=== PATIENT | female | born 1960 | race Caucasian/White ===

== ENCOUNTER 2020-07-04 08:40 | Outpatient (CLI) | payer BC, SELFPAY ==
--- NOTE | ~2020-07-04 | MM_ITS ---
EXAMINATION: MM screening [facility] BI w jayshree HISTORY: Screening mammogram TECHNIQUE: Craniocaudal and mediolateral oblique 3-D tomosynthesis images were obtained and synthetic 2-D images were generated. CAD analysis was submitted and interpreted. COMPARISON: 03/21/2019, 03/01/2018, 02/18/2017 BREAST PARENCHYMAL COMPOSITION: The breasts are almost entirely fatty. FINDINGS: Stable focal asymmetry is again noted in the upper outer quadrant of the right breast. Ther e is no evidence of suspicious mass, calcification, or architectural distortion to suggest malignancy in either breast. There has been no suspicious interval change. IMPRESSION: 1. No mammographic evidence of malignancy. 2. Recommend routine screening mammography in one year. BI-RADS Category 2: Benign finding(s). Reviewed, dictated and finalized at location A.
== END 2020-07-04 08:41 | disposition home or self-care (01) ==
PROVIDERS: PCP Family Medicine; Visit Provider Nurse Practitioner
DX: Z12.31 Encounter for screening mammogram for malignant neoplasm of breast (principal)
CPT/HCPCS: 77063; 77067

== ENCOUNTER 2020-10-22 15:33 | Emergency (ER) | payer BC, SELFPAY ==
[2020-10-22] VITALS (8 sets, daily range): BP systolic 104–134; BP diastolic 66–85; PULSE 80–87; RESP 16–30; TEMP 37.2; O2SAT 90–94
--- NOTE | ~2020-10-22 | XR_ITS ---
EXAMINATION: XR chest 1V portable EXAM DATE: 10/22/2020 17:07 INDICATION: Shortness of breath, weakness, headache. History hypertension. TECHNIQUE: Portable AP frontal chest x-ray was obtained. There is no prior study for comparison. FINDINGS: Moderate amount of bilateral ill-defined acute airspace disease. Recommend considering/excl uding COVID-19 given community prevalence. No pneumothorax or pleural effusion. Cardiomediastinal charlie houette is normal. There are mild bony degenerative changes. IMPRESSION: Moderate amount of bilateral ill-defined acute airspace disease, clinical correlation in dicated. Recommend considering COVID pneumonia. Reviewed, dictated and finalized at location A. RINTENDENT STORAGE AREA IMPRESSION: Moderate amount of bilateral ill-defined acute airspace disease, c linical correlation indicated. Recommend considering COVID pneumonia.
--- NOTE | ~2020-10-22 | CT_ITS ---
EXAMINATION: CTA chest PE protocol EXAM DATE: 10/22/2020 18:23 INDICATION: Shortness of breath. Fever. COVID 19 positive. TECHNIQUE: Spiral CTA of the chest (pulmonary arteries) was performed with 100 cc Omnipaque 350 intr avenous contrast injection. Images were acquired during the pulmonary arterial phase. Coronal maxi mum intensity projection 3D-reconstructions were created by the technologist on dedicated workstation . Axial, coronal and sagittal reformatted images were reviewed. The dose-length product (DLP) for t his examination was 901.51 mGy-cm. The exposure was tailored according to patient size (auto mA exp osure control), and iterative reconstruction (ASIR) was used as additional dose reduction technique. Correlation is made to chest x-ray earlier same day. FINDINGS: Pulmonary arteries are well opacified and without intraluminal filling defects. No thora cic aortic dissection. Bilateral patchy peripheral predominant groundglass opacities Appearance is t ypical of early stage COVID 19 pneumonia. Less likely acute possibilities include influenza, pulmona ry edema or hemorrhage. Some chronic processes that can have this appearance include cryptogenic orga nizing pneumonia, desquamative interstitial pneumonia, nonspecific interstitial pneumonia, drug toxic ity, connective tissue disease. Please clinically correlate and test as appropriate. There is an anterior mediastinal mass measuring 4.6 x 3.0 cm. Differential diagnosis includes thymoma , thymic carcinoma, lymphadenopathy. Recommend histologic correlation. There are no pleural or perica rdial effusions. Tracheobronchial tree is patent. There is no pneumothorax. Heart is normal in size. There is mild coronary arterial calcification, arterial sclerosis. Surgical changes along the greater curvature of the stomach, with small gastroesophageal hiatal hernia. Patient has diffuse id iopathic skeletal hyperostosis (DISH). There are no osteoblastic or osteolytic lesions identified. IMPRESSION: 1. Moderate patchy bilateral airspace disease suspicious for COVID-19 pneumonia. 2. Anterior mediastinal mass; nonemergent cardiothoracic consult is recommended for histologic corre lation. 3. Small gastroesophageal hiatal hernia. Reviewed, dictated and finalized at location A. LE INSTALLER IMPRESSION: 1. Moderate patchy bilateral airspace disease suspicious for COVID-19 pneumoni a. 2. Anterior mediastinal mass; nonemergent cardiothoracic consult is recommende d for histologic correlation. 3. Small gastroesophageal hiatal hernia.
--- NOTE | 2020-10-22 16:34 | ECG_ITS ---
Measurements Intervals [place] Rate: 84 P: 26 AR: 133 QRS: 4 QRSD: 95 T: 2 QT: 363 QTc: 429 Interpretive Statements SINUS RHYTHM BORDERLINE R WAVE PROGRESSION, ANTERIOR LEADS BORDERLINE T WAVE ABNORMALITY- ANTEROLAT/INF LEADS BORDERLINE ECG Electronically Signed On 10-22-2020 17:44:07 STONE SPREADER OPERATOR by Jb Fairchild D.O.
--- NOTE | 2020-10-22 16:36 | ED.GENADULT ---
HPI - General Adult General Chief complaint: Shortness of Breath/Dyspnea Stated complaint: covid positive/diff breathing Time Seen by Provider: 10/22/20 16:23 Source: patient and old records reviewed Mode of arrival: ambulatory Limitations: no limitations History of Present Illness HPI narrative: Patient is a 60-year-old female who presents Covid positive with continued symptoms with worsening shortness of breath with little activity or exertion patient notes nonproductive cough congestion headache loss of sense of smell. Denies chest pain vomiting diarrhea. Patient presents per private vehicle noting that she has been taking Tylenol is the only medication for her symptoms. On arrival patient does not appear distressed or uncomfortable. Patient is followed by Dr. Lyle. Related Data Allergies Allergy/AdvReac Type Severity Reaction Status Date / Time No Known Allergies Allergy Mild Verified 10/22/20 16:41 Review of Systems Review of Systems: All systems reviewed & are unremarkable except as noted in HPI and below PMFSH Family History Family History Father Hypertension Carcinoma of colon Mother Hypertension Social History Social History Smoking status: Smoker, status unknown Alcohol intake: current Exam Narrative: Exam Narrative: GENERAL: Well-appearing, obese, and in no acute distress. HEAD: Normocephalic, atraumatic. EYES: PERRLA and EOMI. ENT: Nares clear, no rhinorrhea or epistaxis. Mucous membranes moist. NECK: Supple. No adenopathy or masses. No carotid bruits or JVD CHEST: Clear to auscultation. No respiratory distress. Slight crackles in the lung ramirez no wheezing HEART: Regular rate and rhythm. No murmur heard. EXTREMITIES: Normal range of motion. No edema. SKIN: Warm, dry, no rash. NEURO: No focal deficits. Alert and oriented x3. Cranial nerves II through XII grossly intact PSYCH: Normal mood and affect. Course Course Emergency Course: Patient in the room in no distress aware of case findings treatment plan diagnosis will be discharged home will be sent home with inhaler patient was given steroids in the emergency department patient during her stay in the emergency department has had a respiratory rate in the 20s with oxygen saturations from 91 to 94%. Patient will be sent home with supportive medications to include antibiotic patient aware of discussion with primary care and will follow with them by phone tomorrow for reevaluation. Patient will be advised to purchase a home oximeter to monitor her oxygenation. Patient afebrile nontoxic-appearing and without emesis Consultations Consultation #1: Discussed case with primary care who will follow patient on an outpatient basis and is aware of the case findings and presentation Date: 10/22/20 Time: 19:30 Vital Signs Vital signs: Vital Signs Temperature 99.0 F 10/22/20 16:35 Pulse Rate 85 10/22/20 16:35 Respiratory Rate 30 H 10/22/20 16:35 Blood Pressure 125/74 10/22/20 16:35 Pulse Oximetry 90 10/22/20 16:35 Temperature 99.0 F 10/22/20 16:35 Pulse Rate 87 10/22/20 19:15 Respiratory Rate 18 10/22/20 19:15 Blood Pressure 122/76 10/22/20 19:15 Pulse Oximetry 92 10/22/20 19:15 Medical Decision Making [facility] Narrative Medical decision making narrative: Patient with COVID-19 pneumonia nontoxic-appearing will be discharged home with strict instructions on reasons to return advised to follow her oximetry patient advised to rest hydrate and to follow with primary care for further evaluation and given reasons to return and agrees to do so if symptoms worsen. Patient is able to talk without becoming dyspneic in the room respiratory rate is more in the teens with oxygenation of 94% no respiratory distress Vital Signs Vital Signs: Vital Signs Temperature 99.0 F 10/22/20 16:35 Pulse Rate 85 10/22/20
[2020-10-22 17:07] LABS: Basophils Absolute Auto 0.1 K/mm3 (0.0-0.1); Basophils Percent Auto 0.4 % (0.2-1.2); Eosinophils Percent Auto 0.1 % (0-4.4); Hematocrit 42.1 % (37.0-47.0); Immature Granulocyte Absolute 0.06 K/mm3 (0.00-0.031); Immature Granulocyte Percent A 0.5 % (0-0.5); Lymphocytes Absolute Auto 0.76 K/mm3 (0.9-3.2); Lymphocytes Percent Auto 6.5 % (18.3-44.2); Mean Corpuscular HGB Conc 33.3 g/dl (32-36); Mean Corpuscular Hemoglobin 28.6 pg (26-34); Mean Corpuscular Volume 86.1 fl (80-100); Mean Platelet Volume 9.8 fl (7.4-10.4); Monocytes Absolute Auto 0.7 K/mm3 (0.1-0.6); Monocytes Percent Auto 6.2 % (2.6-8.5); Neutrophils Absolute Auto 10.2 K/mm3 (1.3-6.7); Neutrophils Percent Auto 86.3 % (45.5-73.1); Platelet Count Result 271 k/mm3 (150-375); Red Blood Count 4.89 M/mm3 (4.2-5.4); White Blood Count 11.8 K/mm3 (4.5-10.0)
[2020-10-22 17:16] LABS: Prothrombin Time 13.9 Seconds (11.1-14.7)
[2020-10-22 17:17] LABS: Lactic Acid Reflex 1.2 mmol/L (0.7-2.1); Partial Thromboplastin Time 33.7 SECONDS (22.3-36.8)
[2020-10-22 17:19] LABS: D Dimer 0.81 ug/mL (<0.48)
[2020-10-22 17:22] LABS: Alanine Aminotransferase 19 U/L (4-35); Albumin Level 3.8 g/dL (3.5-5.1); Alkaline Phosphatase 105 U/L (38-126); Anion Gap 5 mmol/L (8-16); Aspartate Amino Transferase 36 U/L (14-36); Bilirubin,Total 0.7 mg/dL (0.2-1.3); Blood Urea Nitrogen 22 mg/dL (7-17); Calcium 9.4 mg/dL (8.4-10.2); Carbon Dioxide 31 mmol/L (22-30); Chloride 102 mmol/L (98-107); Estimated CRCL calculation 89 ml/min; Estimated Glomerular Filt Rate > 60; Glucose 129 mg/dL (65-105); Potassium 3.5 mmol/L (3.4-5.0); Sodium 138 mmol/L (137-145)
[2020-10-22 17:29] LABS: Troponin I < 0.012 ng/mL (0.000-0.034)
[2020-10-22] MEDS: DEXAMETHASONE SOD PHOS INJ 4 MG/ML VIAL 6 MG IV PUSH (19:08)
== END 2020-10-22 20:11 | disposition home or self-care (01) ==
PROVIDERS: Emergency Medicine Emergency Medical Services; Emergency Provider Emergency Medicine; PCP Family Medicine
DX: U07.1 COVID-19 (principal); J12.89 Other viral pneumonia
CPT/HCPCS: 36415; 71045; 71275; 80053; 83605; 84484; 85025; 85380; 85610; 85730; 86140; 87040; 93005; 96374; 99284; J1100; Q9967

== ENCOUNTER 2020-10-23 09:41 | Inpatient (IN) | payer BC, SELFPAY ==
[2020-10-23] VITALS (12 sets, daily range): BP systolic 95–127; BP diastolic 60–76; PULSE 74–90; RESP 20–40; TEMP 36.1–37.1; O2SAT 90–100; BMI 40.8
--- NOTE | ~2020-10-23 | XR_ITS ---
EXAMINATION: XR chest 1V portable INDICATION: COVID 19 pneumonia, increasing oxygen requirements TECHNIQUE: Portable AP chest at 1359 hours COMPARISON: 10/23/2020 FINDINGS: Patchy opacities have developed throughout the right lung and in the left mid and lower filiberto g zones. No pleural effusion or pneumothorax is identified. The cardiomediastinal silhouette is pj l. IMPRESSION: 1. Patchy bilateral airspace opacities, consistent with COVID 19 pneumonia. Reviewed, dictated and finalized at location A. IZE MACHINE HELPER
--- NOTE | ~2020-10-23 | XR_ITS ---
XR chest PICC line 11/01/2020 19:40 Indication: PICC line placement Procedure: AP portable chest Comparison: Comparison to multiple prior studies sequentially, with oldest reviewed study dated . Findings: Cardiomegaly with diffuse bilateral airspace disease. Interval placement of right subclavia n PICC line, tip near the cavoatrial junction. No pneumothorax. No significant effusion. Impression: 1: Persistent diffuse bilateral airspace disease which may represent pneumonia, edema or ARDS. Reviewed, dictated and finalized at location A. HOLE MACHINE OPERATOR Impression: 1: Persistent diffuse bilateral airspace disease which may represent pneumonia, edema or ARDS.
--- NOTE | ~2020-10-23 | XR_ITS ---
EXAMINATION: XR chest 1V portable EXAM DATE: 10/30/2020 06:19 INDICATION: Hypoxia, COVID-19 . TECHNIQUE: Portable AP frontal chest x-ray was obtained. Comparison is made to prior examination from 10/27/2020. FINDINGS: Extensive bilateral acute airspace disease, consistent with history provided of COVID pneum onia. No pneumothorax or pleural effusion. Cardiomediastinal silhouette is normal. Bones are unremark able. There is been interval progression in airspace disease compared to 10/27. IMPRESSION: Progressing extensive COVID pneumonia. Reviewed, dictated and finalized at location A. ESS CONTROL TECH
--- NOTE | ~2020-10-23 | XR_ITS ---
XR chest 1V portable 11/13/2020 06:33 Indication: Shortness of breath Procedure: AP portable chest Comparison: Comparison to multiple prior studies sequentially, with oldest reviewed study dated 10/08. Findings: Heart size normal. Persistent extensive bilateral airspace disease without significant davenport ge. No effusion or pneumothorax. No acute osseous abnormality. PICC line tip at the cavoatrial juncti on. Impression: 1: Stable diffuse bilateral airspace disease which may represent pneumonia or edema. Reviewed, dictated and finalized at location A. TEACHER Impression: 1: Stable diffuse bilateral airspace disease which may represent pneumonia or e karoline.
--- NOTE | ~2020-10-23 | XR_ITS ---
EXAMINATION: XR chest 1V portable DATE: 11/03/2020 06:00 INDICATION: Pneumonia TECHNIQUE: frontal view of the chest was obtained. COMPARISON: Chest radiograph dated 11/01/2020 FINDINGS: Right upper extremity peripherally inserted central venous catheter (PICC) tip at the caudal superio r vena cava. Diffuse bilateral interstitial and patchy airspace opacities, left greater than right. N o pneumothorax or pleural effusion. Heart size is normal. Cholecystectomy clips in right upper quadra nt. Visualized bones and soft tissues are unremarkable. IMPRESSION: 1. No significant interval change in diffuse bilateral lung disease consistent with pneumonia and/or pulmonary edema. Reviewed, dictated and finalized at location A. CTOR BUSINESS DEVELOPMENT
--- NOTE | ~2020-10-23 | XR_ITS ---
XR chest 1V portable DATE: 10/23/2020 10:19 INDICATION: Shortness of breath TECHNIQUE: Portable AP chest on 10/23/2020 at 1013 hours COMPARISON: 10/22/2020 CT pulmonary scan 10/22/2020 portable AP chest FINDINGS: Normal heart size. No pleural effusion. There are mild patchy infiltrates involving primarily the mid and lower lung zones. No pneumothorax. Diffuse idiopathic skeletal hyperostosis of the thoracic spine. Osteopenia. IMPRESSION: Patchy bilateral mild pulmonary infiltrates Reviewed, dictated and finalized at location B. CIATE DIRECTOR OF NURSING
--- NOTE | ~2020-10-23 | US_ITS ---
US soft tissue abdomen 11/13/2020 14:55 Indication: Large hematomas due to Lovenox injections. Decreased hematocrit. Procedure: Realtime limited ultrasound of the area of abdominal bruising Comparison: No prior studies for comparison. Findings: There are multiple cystic and hypoechoic masses of the anterior abdominal wall in the area of palpable concern. There is a cystic mass measuring 1.8 cm. There is a larger hypoechoic mass with irregular margins measuring 5 x 3.7 x 4.8 cm no internal vascularity is identified. Impression: 1: Multiple cystic and hypoechoic masses in the areas of bruising and Lovenox injections, most likely hematoma/seromas, although infection is not excluded. Correlate clinically. Reviewed, dictated and finalized at location A. R OFF Impression: 1: Multiple cystic and hypoechoic masses in the areas of bruising and Lovenox i njections, most likely hematoma/seromas, although infection is not excluded. Co rrelate clinically.
--- NOTE | ~2020-10-23 | XR_ITS ---
EXAMINATION: XR chest 1V portable EXAM DATE: 11/01/2020 10:51 INDICATION: Shortness of breath. Pneumonia follow-up. TECHNIQUE: Portable AP frontal chest x-ray was obtained. Comparison is made to prior examination from 10/30/2020, 10/27. FINDINGS: Extensive bilateral acute airspace disease, consistent with history provided of COVID pneum onia. No pneumothorax or pleural effusion. Cardiomediastinal silhouette is normal. Bones are unremark able. There is been interval progression in airspace disease compared to 10/27, but appearance is not signi ficantly changed compared to yesterday. IMPRESSION: Extensive COVID pneumonia, unchanged compared to yesterday. No pneumothorax. Reviewed, dictated and finalized at location A. TENANCE OF WAY SUPERINTENDENT IMPRESSION: Extensive COVID pneumonia, unchanged compared to yesterday. No pne umothorax.
--- NOTE | 2020-10-23 09:54 | PC.NURSE ---
Pt placed on 2 L NC O2 due to 90% on room air. Pt O2 sat 95% on 2L NC.
--- NOTE | 2020-10-23 09:58 | ECG_ITS ---
Measurements Intervals [place] Rate: 81 P: 29 [place]: 134 QRS: 7 QRSD: 88 T: 7 QT: 367 QTc: 428 Interpretive Statements SINUS RHYTHM BORDERLINE ST-T WAVE ABNORMALITY- INFERIOR LEADS BASELINE ARTIFACT- I, II BORDERLINE ECG Electronically Signed On 10-23-2020 10:15:46 MOLD BUNCH TRIMMER by Jb Fairchild D.O.
[2020-10-23 10:20] LABS: Basophils Percent Auto 0.2 % (0.2-1.2); Hematocrit 43.8 % (37.0-47.0); Hemoglobin 14.7 g/dL (12.0-15.0); Immature Granulocyte Absolute 0.06 K/mm3 (0.00-0.031); Immature Granulocyte Percent A 0.4 % (0-0.5); Lymphocytes Percent Auto 5.1 % (18.3-44.2); Mean Corpuscular HGB Conc 33.6 g/dl (32-36); Mean Corpuscular Hemoglobin 29.1 pg (26-34); Mean Corpuscular Volume 86.6 fl (80-100); Mean Platelet Volume 9.6 fl (7.4-10.4); Monocytes Absolute Auto 0.6 K/mm3 (0.1-0.6); Monocytes Percent Auto 4.7 % (2.6-8.5); Neutrophils Absolute Auto 12.3 K/mm3 (1.3-6.7); Neutrophils Percent Auto 89.6 % (45.5-73.1); Platelet Count Result 329 k/mm3 (150-375); Red Blood Count 5.06 M/mm3 (4.2-5.4); White Blood Count 13.7 K/mm3 (4.5-10.0)
[2020-10-23 10:32] LABS: Alanine Aminotransferase 23 U/L (4-35); Alkaline Phosphatase 115 U/L (38-126); Anion Gap 10 mmol/L (8-16); Aspartate Amino Transferase 40 U/L (14-36); Bilirubin,Total 0.5 mg/dL (0.2-1.3); Blood Urea Nitrogen 23 mg/dL (7-17); Calcium 9.6 mg/dL (8.4-10.2); Carbon Dioxide 30 mmol/L (22-30); Chloride 101 mmol/L (98-107); D Dimer 0.96 ug/mL (<0.48); Estimated CRCL calculation 73 ml/min; Estimated Glomerular Filt Rate > 60; Glucose 140 mg/dL (65-105); Potassium 3.6 mmol/L (3.4-5.0); Sodium 141 mmol/L (137-145)
--- NOTE | 2020-10-23 10:45 | PC.NURSE ---
Per Carson PIERRE, pt placed on 3 L NC O2 due to increased RR.
--- NOTE | 2020-10-23 13:34 | ED.GENADULT ---
HPI - General Adult General Chief complaint: Shortness of Breath/Dyspnea Stated complaint: SOB, COVID + Time Seen by Provider: 10/23/20 09:58 Source: patient Mode of arrival: EMS Limitations: no limitations History of Present Illness HPI narrative: Patient presents 10 days positive for COVID-19 with chief complaint of worsening shortness of breath. Patient was seen in this emergency department last night and was given steroids and felt that her breathing improved so she was discharged home with prescriptions that she was unable to excelsior picker from the pharmacy. Patient states that she was having more trouble breathing today so she called EMS to bring her to the emergency department. EMS states the patient was satting in the 80s and to put on oxygen via nasal cannula and she was able to be brought into the 90s. Patient denies a history of COPD asthma or any other pulmonary issues. Patient denies using home oxygen prior to today. Patient denies fever, chills, nausea, vomiting, diarrhea. Patient states she has experienced some loss of taste and smell. Related Data Allergies Allergy/AdvReac Type Severity Reaction Status Date / Time No Known Allergies Allergy Mild Verified 10/23/20 14:42 Review of Systems Review of Systems: Narrative: CONSTITUTIONAL: Denies fever, chills, or sweats. EYES: Denies visual changes, redness, or discharge. ENT: Denies rhinorrhea, congestion, sore throat, or otalgia. CARDIOVASCULAR: Denies chest pain, palpitations, or edema. RESPIRATORY: Reports dyspnea. GASTROINTESTINAL: Denies abdominal pain, nausea, vomiting, or diarrhea. GENITOURINARY: Denies dysuria or hematuria. SKIN: Denies rash or itching. MUSCULOSKELETAL: Denies back pain, joint pain, or myalgia. NEUROLOGIC: Denies headache, numbness, dizziness, or weakness. PSYCHIATRIC: Denies anxiety or depression. 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 Typically she was smoke about a pack in a week. Socially drinks alcohol no marijuana or illicit drugs. Her is a durable power united [place] attorney for healthcare. The patient desires to be a full code. Smoking status: Never smoker Alcohol intake: current Drinks per week: 1 Substance use: never Substance use type: does not use Gender identity (if verbalized by the patient): Female Sexual Orientation (if Verbalized by the Patient): Straight or Heterosexual Spiritual care concerns: No Exam Narrative: Exam Narrative: GENERAL: Well-appearing, well-nourished, and in no acute distress. HEAD: Normocephalic, atraumatic. EYES: PERRLA and EOMI. NECK: Supple. No adenopathy or masses. CHEST: Clear to auscultation. Patient breathing in quick shallow respirations. No wheezes rales or rhonchi HEART: Regular rate and rhythm. No murmur heard. EXTREMITIES: Normal range of motion. No edema. SKIN: Warm, dry, no rash. NEURO: No focal deficits. Alert and oriented x3. PSYCH: Normal mood and affect. Course Vital Signs Vital signs: Vital Signs Temperature 97.0 F L 10/23/20 09:42 Pulse Rate 84 10/23/20 09:42 Respiratory Rate 35 H 10/23/20 09:42 Blood Pressure 120/69 10/23/20 09:42 Pulse Oximetry 90 10/23/20 09:42 Temperature 97.0 F L 10/23/20 09:42 Pulse Rate 84 10/23/20 13:36 Respiratory Rate
--- NOTE | 2020-10-23 13:57 | PM.IMHP ---
H&P: HPI History of Present Illness Date/Time: 10/23/20 13:57 Chief Complaint: Shortness of breath and hypoxia Narrative: Natasha Hogan is a 60 year old female Who was diagnosed at [facility] approximately 10 days ago for COVID-19. The patient was doing well until last night. She stated that her pulse ox went down to about 84% last night. She was here in the emergency room yesterday and they did a CTa which was read as moderate patchy bilateral airspace disease suspicious for COVID-19 pneumonia. Anterior mediastinal mass non emergent cardiothoracic consult is recommended for histologic correlation. Small gastrointestinal hiatal hernia. The patient stated that she was prescribed steroids yesterday but was not able to get them from the pharmacy as the ready close when she got to the pharmacy. She was able to by pulse oximeter and was monitoring her oxygen level closely. Patient's pulse oximeter was noted to be in the 90 percentile and oxygen was applied at 3 L per nasal cannula. White count 13.7. D-dimer 0.[address] was negative for PE. patient is requiring 3 L of oxygen at this time. Patient was admitted to observation status on the date of service 10/23/2020. Review of Systems Review of Systems: All systems reviewed & are unremarkable except as noted in HPI and below Constitutional: Constitutional: Reports as per HPI and Reports no additional constitutional complaints Eyes: Eyes: Reports as per HPI and Reports no additional eye complaints ENT: Reports system reviewed and no additional complaints, except as documented and Reports Normal hearing present Cardiovascular: Cardiovascular: Reports no additional cardiovascular complaints Respiratory: Respiratory: Reports no additional respiratory complaints and Reports no additional respiratory complaints Gastrointestinal: Gastrointestinal: Reports as per HPI and Reports no additional gastrointestinal complaints Musculoskeletal: Musculoskeletal: Reports no additional musculoskeletal complaints Integumentary/Breasts: Skin/Breast: Reports system reviewed and no additional complaints, except as docu and Reports as per HPI Neurologic: Reports system reviewed and no additional complaints, except as documented, Reports as per HPI and Reports Normal hearing present Psychiatric: Psychiatric: Reports no additional psychiatric complaints and Reports as per HPI Endocrine: Endocrine: Reports no additional endocrine complaints Hematologic/Lymphatic: Hematologic/Lymphatic: Reports no additional hematologic/lymphatic complaints Allergic/Immunologic: Allergic/Immunologic: Reports no additional allergic/immunologic complaints [facility] Past Medical History Medical History (Updated 10/23/20 @ 14:12 by Lulu Rosales NP) Essential hypertension MARIA E (generalized anxiety disorder) Surgical History Surgical History (Updated 10/23/20 @ 14:11 by Lulu Rosales NP) H/O cardiac radiofrequency ablation H/O colonoscopy with polypectomy H/O: hysterectomy Hx of cholecystectomy Family History Family History Father Hypertension Carcinoma of colon Mother Hypertension Social History Social History (Updated 10/23/20 @ 14:16 by Lulu Rosales NP) Social History: the patient works for [employer] in the [place] department. 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 Typically she was smoke about a pack in a week. Socially drinks alcohol no marijuana or illicit drugs. Her is a durable power regulatory attorney for healthcare. The patient desires to be a full code. Smoking status: Smoker, status unknown Alcohol intake: current Gender identity (if verbalized by the patient): Female Meds Home Medications and Allergies Home Medications Medication Instructions Recorded Confirmed Type fluconazole 150 mg tablet 150 mg PO ONCE #2 tablet 07/25/20 Rx sertraline 50 mg tablet See Rx Instructions .ROUTE 10
--- NOTE | 2020-10-23 14:33 | ADMGEN ---
This patient, Natasha Hogan, was admitted to [facility] Surg Room 326-01. Patient/family oriented to hospital policies and general routines including ID bracelet, bed and alarms, visiting hours, pain management, procedures, bathroom and other care routines, personal items, smoking policy, room service/diet, and visiting hours. Information on how to activate the Rapid Response Team has been discussed. Patient/Family are encouraged to report perceived risks to care and to ask questions if they do not understand what they are told or what they should do.
[2020-10-23 14:48] LABS: Alanine Aminotransferase 22 U/L (4-35)
[2020-10-23] MEDS: ACETAMINOPHEN 325 MG TABLET 650 MG PO (15:17)
[2020-10-23] MEDS: REMDESIVIR 200 MG/NS 250 ML 200 MG/250 ML BAG 250 MG IVPB (15:18)
[2020-10-23] MEDS: DEXAMETHASONE SOD PHOS INJ 4 MG/ML VIAL 6 MG IV PUSH (15:19)
[2020-10-23] MEDS: ALBUTEROL SULFATE (*SP) INHALER 2 PUFF INHALATION ×2 (15:20→21:55)
--- NOTE | 2020-10-23 16:31 | PC.NURSE ---
Lulu Shane called to ask for diet order and code status.new orders recieved. Heart healthy diet and full code status.
[2020-10-23] MEDS: FAMOTIDINE 20 MG TABLET PO (17:35)
[2020-10-24] VITALS (7 sets, daily range): BP systolic 90–112; BP diastolic 55–64; PULSE 71–77; RESP 18–20; TEMP 36.1–36.9; O2SAT 90–95
[2020-10-24] MEDS: ALBUTEROL SULFATE (*SP) INHALER 2 PUFF INHALATION ×4 (02:16→21:08)
[2020-10-24 06:18] LABS: Basophils Percent Auto 0.2 % (0.2-1.2); Hematocrit 38.9 % (37.0-47.0); Immature Granulocyte Absolute 0.09 K/mm3 (0.00-0.031); Immature Granulocyte Percent A 0.7 % (0-0.5); Mean Corpuscular HGB Conc 33.4 g/dl (32-36); Mean Corpuscular Volume 86.6 fl (80-100); Mean Platelet Volume 9.9 fl (7.4-10.4); Monocytes Absolute Auto 0.9 K/mm3 (0.1-0.6); Monocytes Percent Auto 6.9 % (2.6-8.5); Neutrophils Absolute Auto 10.5 K/mm3 (1.3-6.7); Neutrophils Percent Auto 84.2 % (45.5-73.1); Platelet Count Result 348 k/mm3 (150-375); Red Blood Count 4.49 M/mm3 (4.2-5.4); Red Cell Distribution Width 12.2 % (11.5-14.5); White Blood Count 12.5 K/mm3 (4.5-10.0)
[2020-10-24 06:35] LABS: Alanine Aminotransferase 22 U/L (4-35); Albumin Level 3.4 g/dL (3.5-5.1); Alkaline Phosphatase 94 U/L (38-126); Anion Gap 3 mmol/L (8-16); Aspartate Amino Transferase 37 U/L (14-36); Bilirubin,Total 0.3 mg/dL (0.2-1.3); Blood Urea Nitrogen 33 mg/dL (7-17); Carbon Dioxide 33 mmol/L (22-30); Chloride 102 mmol/L (98-107); Estimated CRCL calculation 80 ml/min; Estimated Glomerular Filt Rate > 60; Glucose 124 mg/dL (65-105); Magnesium 2.2 mg/dL (1.6-2.3); Phosphorus 4.8 mg/dL (2.5-4.5); Potassium 3.9 mmol/L (3.4-5.0); Sodium 138 mmol/L (137-145)
[2020-10-24 07:17] LABS: Thyroid Stimulating Hormone Reflex 0.449 uIU/mL (0.465-4.68)
[2020-10-24] MEDS: DEXAMETHASONE SOD PHOS INJ 4 MG/ML VIAL 6 MG IV PUSH (08:51)
[2020-10-24] MEDS: SERTRALINE HCL 50 MG TABLET BY MOUTH (08:53)
[2020-10-24] MEDS: FAMOTIDINE 20 MG TABLET PO ×2 (08:53→17:08)
[2020-10-24 09:32] LABS: Free T4 Free Thyroxine Reflex 1.35 ng/dL (0.78-2.19)
[2020-10-24] MEDS: REMDESIVIR 100 MG/NS 250 ML 100 MG/250 ML BAG 250 MG IVPB (10:11)
[2020-10-24 10:36] LABS: Total Triiodothyronine (T3) 0.72 NG/ML (0.97-1.69)
--- NOTE | 2020-10-24 13:08 | PM.IMPN ---
Progress Note: A&P Assessment and Plan (1) COVID-19: Code(s): U07.1 - COVID-19 Status: Acute Assessment and Plan: She tested positive for COVID-19 10/16/20. She noticed shortness of breath worsening within the past week. She is currently hypoxic and requiring 3.5 liters per nasal cannula. She does feel better today Plan to continue dexamethasone (day 2, initiated 10/23/20) and remdesivir (day 2, initiated 10/23/20) Continue incentive spirometry Continue mucinex Continue albuterol via MDI Trend acute phase reactants Encourage prone positioning Continue supplemental oxygen as needed to maintain oxygen saturation >90% (2) MARIA E (generalized anxiety disorder): Code(s): F41.1 - Generalized anxiety disorder Status: Acute Assessment and Plan: Mood is stable. Continue sertraline (3) Essential hypertension: Code(s): I10 - Essential (primary) hypertension Status: Chronic Assessment and Plan: Blood pressures are a bit on the soft side. Telmisartan-HCTZ is on hold. Continue to monitor Subjective Date/time seen: 10/24/20 13:08 Mrs. Hogan is a 60 y.o. female with PMH significant for essential hypertension, MARIA E, and tobacco dependence who is seen in follow-up for acute hypoxic respiratory failure secondary to COVID-19 pneumonia. She is feeling better today. She endorses dyspnea on exertion but is comfortable at rest. She is not having any chest pain or pleuritic pain. She does not have significant cough. She is not having nausea, vomiting, or abdominal pain. Her bowels tend to be looser but she did have a regular bowel movement today. She has no voiding concerns. She denies subjective fever and chills. She denies calf pain and leg swelling. Review of Systems Review of Systems: All systems reviewed & are unremarkable except as noted in HPI and below Exam Narrative: Exam Narrative: General: Pleasant, well-developed, and obese 60 y.o. female lying semi-recumbent in bed in no acute distress. HEENMT: Normocephalic and atraumatic. Sclera anicteric. Conjunctivae without injection or exudate. PERRL. EOMI. Oral conjunctiva moist. Neck: Supple. Cardiac: Regular rate and rhythm. S1 and S2 normal. No murmur. Lungs: Respirations even and non-labored. She is speaking in full sentences without distress. Inspiratory and expiratory rales throughout bilateral lung ramirez, no wheezes. Abdomen: Bowel sounds normoactive. Abdomen is soft, non-distended, and non-tender. Extremities: No lower extremity edema or calf tenderness. Tawanda sign negative. Pedal pulses palpable 2+. Neurological: Alert. CN II-XII intact. Upper and lower extremity strength intact and symmetric 5/5. Speech is clear. Skin: Warm and dry. Psychiatric: Judgment and insight intact. Pleasant mood and appropriate affect. Objective Data Vital Signs Vital Signs: Vital Signs - 24 hr 10/23/20 13:36 10/23/20 13:50 10/23/20 15:34 Temperature 98.4 F Pulse Rate 84 81 Respiratory Rate 37 H 22 H Blood Pressure 115/72 127/63 Pulse Oximetry 97 99 95 10/23/20 16:00 10/23/20 20:00 10/24/20 00:00 Temperature 98.7 F 98.5 F 97.7 F Pulse Rate 90 80 71 Respiratory Rate 22 H 20 18 Blood Pressure 115/76 95/60 L 112/56 L Pulse Oximetry 100 94 93 10/24/20 04:00 10/24/20 08:00 10/24/20 08:55 Temperature 98.2 F 98.4 F Pulse Rate 77 76 Respiratory Rate 20 18 Blood Pressure 103/55 L 104/64 Pulse Oximetry 92 91 93 10/24/20 12:00 Temperature 97.1 F L Pulse Rate 73 Respiratory Rate 18 Blood Pressure 90/57 L Pulse Oximetry 95 Intake/Output Intake/Output: Intake & Output 10/21/20 10/22/20 10/23/20 10/24/20 23:59 23:59 23:59 23:59 Intake Total 790 590 Balance 790 590 Meds/Results Medications: Active Medications Generic Name Dose Route Start Last Admin Trade Name Freq PRN Reason Stop Dose Admin Acetaminophen 650 mg 10/23/20 13:27 Acetaminophen 325 Mg T
[2020-10-24] MEDS: ENOXAPARIN 40 MG/0.4 ML SYRINGE SUB-Q (21:07)
[2020-10-25] VITALS (7 sets, daily range): BP systolic 96–121; BP diastolic 42–73; PULSE 63–72; RESP 20; TEMP 36.6–36.8; O2SAT 90–94
[2020-10-25] MEDS: ALBUTEROL SULFATE (*SP) INHALER 2 PUFF INHALATION ×4 (02:00→20:07)
[2020-10-25 06:56] LABS: Basophils Percent Auto 0.1 % (0.2-1.2); Hematocrit 39.4 % (37.0-47.0); Hemoglobin 13.1 g/dL (12.0-15.0); Immature Granulocyte Percent A 0.8 % (0-0.5); Lymphocytes Absolute Auto 1.41 K/mm3 (0.9-3.2); Lymphocytes Percent Auto 11.4 % (18.3-44.2); Mean Corpuscular HGB Conc 33.2 g/dl (32-36); Mean Corpuscular Hemoglobin 28.9 pg (26-34); Mean Corpuscular Volume 86.8 fl (80-100); Mean Platelet Volume 9.8 fl (7.4-10.4); Monocytes Percent Auto 8.3 % (2.6-8.5); Neutrophils Absolute Auto 9.8 K/mm3 (1.3-6.7); Neutrophils Percent Auto 79.4 % (45.5-73.1); Platelet Count Result 383 k/mm3 (150-375); Red Blood Count 4.54 M/mm3 (4.2-5.4); Red Cell Distribution Width 12.2 % (11.5-14.5); White Blood Count 12.4 K/mm3 (4.5-10.0)
[2020-10-25 07:19] LABS: Alanine Aminotransferase 22 U/L (4-35); Albumin Level 3.3 g/dL (3.5-5.1); Alkaline Phosphatase 88 U/L (38-126); Anion Gap 5 mmol/L (8-16); Aspartate Amino Transferase 34 U/L (14-36); Bilirubin,Total 0.3 mg/dL (0.2-1.3); Blood Urea Nitrogen 33 mg/dL (7-17); CRP 6.6 mg/dL (<1.0); Calcium 9.1 mg/dL (8.4-10.2); Carbon Dioxide 33 mmol/L (22-30); Chloride 103 mmol/L (98-107); Creatine Kinase 20 U/L (30-135); Estimated CRCL calculation 91 ml/min; Estimated Glomerular Filt Rate > 60; Glucose 108 mg/dL (65-105); Lactate Dehydrogenase 595 U/L (313-618); Magnesium 2.2 mg/dL (1.6-2.3); Potassium 3.7 mmol/L (3.4-5.0); Sodium 141 mmol/L (137-145)
[2020-10-25] MEDS: LORATADINE 10 MG TABLET PO (08:54)
[2020-10-25] MEDS: SERTRALINE HCL 50 MG TABLET BY MOUTH (08:54)
[2020-10-25] MEDS: FAMOTIDINE 20 MG TABLET PO ×2 (08:54→17:14)
[2020-10-25] MEDS: DEXAMETHASONE SOD PHOS INJ 4 MG/ML VIAL 6 MG IV PUSH (08:54)
[2020-10-25] MEDS: ENOXAPARIN 40 MG/0.4 ML SYRINGE SUB-Q ×2 (08:57→20:06)
[2020-10-25] MEDS: REMDESIVIR 100 MG/NS 250 ML 100 MG/250 ML BAG 250 MG IVPB (10:55)
--- NOTE | 2020-10-25 11:49 | PM.IMPN ---
Progress Note: A&P Assessment and Plan (1) Acute respiratory failure with hypoxia: Code(s): J96.01 - Acute respiratory failure with hypoxia Status: Acute Assessment and Plan: Secondary to COVID-19 pneumonia. Chest CTA negative for PE. Continue supplemental oxygen as needed RT to assess and treat Continue treatment of COVID-19 as below Continue to monitor (2) COVID-19: Code(s): U07.1 - COVID-19 Status: Acute Assessment and Plan: She tested positive for COVID-19 10/16/20. She noticed shortness of breath worsening within the past week. She is currently hypoxic, oxygen requirements increased to 4 liters per nasal cannula. Plan to continue dexamethasone (day 01/14, initiated 10/23/20) and remdesivir (day 01/09, initiated 10/23/20) Continue incentive spirometry Continue mucinex Continue albuterol via MDI Trend acute phase reactants Encourage prone positioning Continue supplemental oxygen as needed to maintain oxygen saturation >90% (3) MARIA E (generalized anxiety disorder): Code(s): F41.1 - Generalized anxiety disorder Status: Acute Assessment and Plan: Mood is stable. Continue sertraline (4) Essential hypertension: Code(s): I10 - Essential (primary) hypertension Status: Chronic Assessment and Plan: Blood pressures are a bit on the soft side. Telmisartan-HCTZ is on hold. Continue to monitor (5) Mediastinal mass: Code(s): J98.59 - Other diseases of mediastinum, not elsewhere classified Status: Acute Assessment and Plan: Chest CTA shows anterior mediastinal mass measuring 4.6x3.0cm with differential to include thymoma, thymic carcinoma, and lymphadenopathy. Discussed with the patient and she will need referral to cardiothoracic surgery once she is discharged for histologic confirmation Subjective Date/time seen: 10/25/20 11:49 Mrs. Hogan is a 60 y.o. female with PMH significant for essential hypertension, MARIA E, and tobacco dependence who is seen in follow-up for acute hypoxic respiratory failure secondary to COVID-19 pneumonia. She feels a bit better today. She did ambulate in the room and still has dyspnea with exertion. She has occasional cough productive of clear sputum. She is not having any chest pain or pleuritic pain. Her appetite is good. She is having regular bowel movements. She has no voiding concerns. She has no calf pain or leg swelling. Review of Systems Review of Systems: All systems reviewed & are unremarkable except as noted in HPI and below Exam Narrative: Exam Narrative: General: Very pleasant, well-developed, well-nourished and obese 60 y.o. female lying in bed watching TV in no acute distress. HEENMT: Normocephalic and atraumatic. Sclera anicteric. Oral mucosa moist. Neck: Supple. Cardiac: Regular rate and rhythm. S1 and S2 normal. No murmur. Lungs: Effort normal without increased work of breathing. Lungs have inspiratory rales throughout all lung ramirez. No wheezes. Abdomen: Bowel sounds normoactive. Abdomen is soft, non-distended, and non-tender. No guarding or rebound. Extremities: No lower extremity edema or calf tenderness. Pedal pulses are palpable, 2+. Neurological: Alert. Exam non-focal. Speech is clear. Skin: Warm and dry. Psychiatric: Judgment and insight intact. Pleasant mood and appropriate affect. Objective Data Vital Signs Vital Signs: Vital Signs - 24 hr 10/24/20 12:00 10/24/20 16:00 10/24/20 20:00 Temperature 97.1 F L 97.0 F L 98.1 F Pulse Rate 73 74 72 Respiratory Rate 18 18 20 Blood Pressure 90/57 L 107/62 110/55 L Pulse Oximetry 95 90 92 10/25/20 01:02 10/25/20 04:00 10/25/20 08:00 Temperature 98.2 F 97.8 F 98.2 F Pulse Rate 69 65 67 Respiratory Rate 20 20 20 Blood Pressure 102/46 L 108/42 L 111/64 Pulse Oximetry 92 90 91 10/25/20 09:00 Temperature Pulse Rate 72 Respiratory Rate Blood Pressure Pulse
[2020-10-26] VITALS (7 sets, daily range): BP systolic 111–132; BP diastolic 54–73; PULSE 61–72; RESP 20–24; TEMP 36.6–37; O2SAT 90–96
[2020-10-26] MEDS: ALBUTEROL SULFATE (*SP) INHALER 2 PUFF INHALATION ×4 (02:00→20:34)
[2020-10-26 07:15] LABS: Basophils Percent Auto 0.3 % (0.2-1.2); Eosinophils Percent Auto 0.2 % (0-4.4); Hematocrit 39.8 % (37.0-47.0); Hemoglobin 12.8 g/dL (12.0-15.0); Immature Granulocyte Absolute 0.28 K/mm3 (0.00-0.031); Immature Granulocyte Percent A 2.2 % (0-0.5); Mean Corpuscular HGB Conc 32.2 g/dl (32-36); Mean Corpuscular Hemoglobin 27.9 pg (26-34); Mean Corpuscular Volume 86.7 fl (80-100); Mean Platelet Volume 9.7 fl (7.4-10.4); Monocytes Absolute Auto 1.1 K/mm3 (0.1-0.6); Monocytes Percent Auto 8.6 % (2.6-8.5); Neutrophils Absolute Auto 9.9 K/mm3 (1.3-6.7); Neutrophils Percent Auto 77.7 % (45.5-73.1); Platelet Count Result 414 k/mm3 (150-375); Red Blood Count 4.59 M/mm3 (4.2-5.4); Red Cell Distribution Width 11.9 % (11.5-14.5); White Blood Count 12.7 K/mm3 (4.5-10.0)
[2020-10-26 07:35] LABS: Alanine Aminotransferase 19 U/L (4-35); Albumin Level 3.3 g/dL (3.5-5.1); Alkaline Phosphatase 88 U/L (38-126); Anion Gap 8 mmol/L (8-16); Aspartate Amino Transferase 27 U/L (14-36); Bilirubin,Total 0.3 mg/dL (0.2-1.3); Blood Urea Nitrogen 29 mg/dL (7-17); CRP 4.8 mg/dL (<1.0); Calcium 8.9 mg/dL (8.4-10.2); Carbon Dioxide 29 mmol/L (22-30); Chloride 106 mmol/L (98-107); Creatine Kinase < 20 U/L (30-135); Estimated CRCL calculation 80 ml/min; Estimated Glomerular Filt Rate > 60; Glucose 105 mg/dL (65-105); Potassium 3.4 mmol/L (3.4-5.0); Sodium 143 mmol/L (137-145)
[2020-10-26] MEDS: DEXAMETHASONE SOD PHOS INJ 4 MG/ML VIAL 6 MG IV PUSH (08:38)
[2020-10-26] MEDS: ENOXAPARIN 40 MG/0.4 ML SYRINGE SUB-Q ×2 (08:38→20:35)
[2020-10-26] MEDS: LORATADINE 10 MG TABLET PO (08:38)
[2020-10-26] MEDS: SERTRALINE HCL 50 MG TABLET BY MOUTH (08:38)
[2020-10-26] MEDS: FAMOTIDINE 20 MG TABLET PO ×2 (08:38→16:18)
[2020-10-26] MEDS: REMDESIVIR 100 MG/NS 250 ML 100 MG/250 ML BAG 250 MG IVPB (09:50)
--- NOTE | 2020-10-26 13:29 | PM.IMPN ---
Progress Note: A&P Assessment and Plan (1) Acute respiratory failure with hypoxia: Code(s): J96.01 - Acute respiratory failure with hypoxia Status: Acute Assessment and Plan: Secondary to COVID-19 pneumonia. Chest CTA negative for PE. Continue supplemental oxygen as needed - she is requiring 7 liters with activity RT to assess and treat Continue treatment of COVID-19 as below Continue to monitor (2) COVID-19: Code(s): U07.1 - COVID-19 Status: Acute Assessment and Plan: She tested positive for COVID-19 10/16/20. She noticed shortness of breath worsening within the past week. She was weaned overnight to 2 liters but is back to 4 liters today. She is requiring 7 liters with activity. Plan to continue dexamethasone (day 02/14, initiated 10/23/20) and remdesivir (day 02/09, initiated 10/23/20) Continue incentive spirometry Continue mucinex Continue albuterol via MDI Trend acute phase reactants - CRP, ferritin are improving Encourage prone positioning Continue supplemental oxygen as needed to maintain oxygen saturation >90% (3) MARIA E (generalized anxiety disorder): Code(s): F41.1 - Generalized anxiety disorder Status: Acute Assessment and Plan: Mood is stable. Continue sertraline (4) Essential hypertension: Code(s): I10 - Essential (primary) hypertension Status: Chronic Assessment and Plan: Blood pressures are reasonable. Telmisartan-HCTZ is on hold. Continue to monitor (5) Mediastinal mass: Code(s): J98.59 - Other diseases of mediastinum, not elsewhere classified Status: Acute Assessment and Plan: Chest CTA shows anterior mediastinal mass measuring 4.6x3.0cm with differential to include thymoma, thymic carcinoma, and lymphadenopathy. Discussed with the patient and she will need referral to cardiothoracic surgery once she is discharged for histologic confirmation Subjective Date/time seen: 10/26/20 13:29 Mrs. Hogan is a 60 y.o. female with PMH significant for essential hypertension, MARIA E, and tobacco dependence who is seen in follow-up for acute hypoxic respiratory failure secondary to COVID-19 pneumonia. She expresses that she is bummed out that she is still requiring oxygen but feels better overall. She is eager to get discharged but understands the need to stay for now. She did notice shortness of breath with exertion today and she was noted to desaturate. She is not having any chest pain or pleuritic pain. She is not having any palpitations. She is not having any significant cough. Her appetite is good without nausea or vomiting. Her bowels are regular. Review of Systems Review of Systems: All systems reviewed & are unremarkable except as noted in HPI and below Exam Narrative: Exam Narrative: General: Very pleasant, well-developed, well-nourished and obese 60 y.o. female lying semi-recumbent in bed in no acute distress. HEENMT: Normocephalic and atraumatic. Sclera anicteric. Oral mucosa moist. Neck: Supple. Cardiac: Regular rate and rhythm. S1 and S2 normal. No murmur. Lungs: Effort normal. Lungs have inspiratory rales throughout all lung ramirez without wheezes or rhonchi. Abdomen: Bowel sounds normoactive. Abdomen is soft, non-distended, and non-tender. No guarding or rebound. Extremities: No lower extremity edema or calf tenderness. Pedal pulses are palpable, 2+. Neurological: Alert. Exam non-focal to casual conversation. Speech is clear. Skin: Warm and dry. Psychiatric: Judgment and insight intact. Pleasant mood and appropriate affect. Objective Data Vital Signs Vital Signs: Vital Signs - 24 hr 10/25/20 16:00 10/25/20 20:00 10/26/20 00:00 Temperature 98.3 F 98.2 F 97.9 F Pulse Rate 64 64 61 Respiratory Rate 20 20 20 Blood Pressure 96/58 L 121/73 118/55 L Pulse Oximetry 91 90 96 10/26/20 04:00 10/26/20 07:44 10/26/20 09:00 Temperature 98.3 F 98.6 F
[2020-10-27] VITALS: BP 120/57; PULSE 62; RESP 18; TEMP 36.9; O2SAT 92
[2020-10-27] MEDS: ALBUTEROL SULFATE (*SP) INHALER 2 PUFF INHALATION ×4 (02:23→19:55)
[2020-10-27 04:00] VITALS: BP 113/63; PULSE 76; RESP 20; TEMP 36.7; O2SAT 91
[2020-10-27 06:39] LABS: Basophils Absolute Auto 0.1 K/mm3 (0.0-0.1); Basophils Percent Auto 0.4 % (0.2-1.2); Eosinophils Absolute Auto 0.1 K/mm3 (0-0.3); Eosinophils Percent Auto 0.7 % (0-4.4); Hematocrit 39.5 % (37.0-47.0); Hemoglobin 12.8 g/dL (12.0-15.0); Immature Granulocyte Percent A 3.3 % (0-0.5); Lymphocytes Absolute Auto 1.65 K/mm3 (0.9-3.2); Lymphocytes Percent Auto 10.9 % (18.3-44.2); Mean Corpuscular HGB Conc 32.4 g/dl (32-36); Mean Corpuscular Volume 86.4 fl (80-100); Mean Platelet Volume 9.6 fl (7.4-10.4); Monocytes Percent Auto 6.6 % (2.6-8.5); Neutrophils Absolute Auto 11.9 K/mm3 (1.3-6.7); Neutrophils Percent Auto 78.1 % (45.5-73.1); Platelet Count Result 415 k/mm3 (150-375); Red Blood Count 4.57 M/mm3 (4.2-5.4); White Blood Count 15.2 K/mm3 (4.5-10.0)
[2020-10-27 07:31] LABS: Alanine Aminotransferase 16 U/L (4-35); Albumin Level 3.2 g/dL (3.5-5.1); Alkaline Phosphatase 87 U/L (38-126); Anion Gap 4 mmol/L (8-16); Aspartate Amino Transferase 25 U/L (14-36); Bilirubin,Total 0.4 mg/dL (0.2-1.3); Blood Urea Nitrogen 21 mg/dL (7-17); Calcium 8.9 mg/dL (8.4-10.2); Carbon Dioxide 32 mmol/L (22-30); Chloride 106 mmol/L (98-107); Creatine Kinase < 20 U/L (30-135); Estimated CRCL calculation 80 ml/min; Estimated Glomerular Filt Rate > 60; Glucose 101 mg/dL (65-105); Lactate Dehydrogenase 743 U/L (313-618); Magnesium 2.1 mg/dL (1.6-2.3); Potassium 3.6 mmol/L (3.4-5.0); Sodium 142 mmol/L (137-145)
[2020-10-27 07:49] LABS: CRP 12.3 mg/dL (<1.0)
[2020-10-27 08:00] VITALS: BP 114/69; PULSE 78; RESP 16; RESP 20; TEMP 36.8; O2SAT 83
[2020-10-27] MEDS: LORATADINE 10 MG TABLET PO (08:13)
[2020-10-27] MEDS: FAMOTIDINE 20 MG TABLET PO ×2 (08:13→17:31)
[2020-10-27] MEDS: ENOXAPARIN 40 MG/0.4 ML SYRINGE SUB-Q ×2 (08:14→19:55)
[2020-10-27] MEDS: SERTRALINE HCL 50 MG TABLET BY MOUTH (08:14)
[2020-10-27] MEDS: DEXAMETHASONE SOD PHOS INJ 4 MG/ML VIAL 6 MG IV PUSH (08:14)
[2020-10-27] MEDS: REMDESIVIR 100 MG/NS 250 ML 100 MG/250 ML BAG 250 MG IVPB (11:17)
[2020-10-27 12:00] VITALS: BP 129/64; PULSE 75; RESP 16; TEMP 37.2; O2SAT 90
--- NOTE | 2020-10-27 13:19 | PM.IMPN ---
Progress Note: A&P Assessment and Plan (1) Acute respiratory failure with hypoxia: Code(s): J96.01 - Acute respiratory failure with hypoxia Status: Acute Assessment and Plan: Secondary to COVID-19 pneumonia. Chest CTA negative for PE. Oxygen requirements have increased and she is up to 8 liters at this time. She feels better overall. Continue supplemental oxygen as needed, wean as tolerated RT to assess and treat Continue treatment of COVID-19 as below Continue to monitor (2) COVID-19: Code(s): U07.1 - COVID-19 Status: Acute Assessment and Plan: She tested positive for COVID-19 10/16/20. She noticed shortness of breath worsening within the past week prior to admission. Oxygen requirements increased and she is on 8 liters now. Plan to continue dexamethasone (day 03/16, initiated 10/23/20) and remdesivir (day 03/11, initiated 10/23/20) Continue incentive spirometry Continue mucinex Continue albuterol via MDI Trend acute phase reactants - CRP, ferritin are improving Encourage prone positioning Continue supplemental oxygen as needed to maintain oxygen saturation >90% Will give 1 dose of lasix today as I&O reflect she is fluid positive (3) MARIA E (generalized anxiety disorder): Code(s): F41.1 - Generalized anxiety disorder Status: Acute Assessment and Plan: Mood is stable. Continue sertraline (4) Essential hypertension: Code(s): I10 - Essential (primary) hypertension Status: Chronic Assessment and Plan: Blood pressures are reasonable. Telmisartan-HCTZ is on hold. Continue to monitor (5) Mediastinal mass: Code(s): J98.59 - Other diseases of mediastinum, not elsewhere classified Status: Acute Assessment and Plan: Chest CTA shows anterior mediastinal mass measuring 4.6x3.0cm with differential to include thymoma, thymic carcinoma, and lymphadenopathy. Discussed with the patient and she will need referral to cardiothoracic surgery once she is discharged for histologic confirmation Discussed with Kacey at Dr. Shaffer's office regarding the need for referral today (10/27) (6) Leukocytosis: Code(s): D72.829 - Elevated white blood cell count, unspecified Status: Acute Assessment and Plan: Likely secondary to steroid use. She has no precipitating symptoms. Continue to monitor CBC daily Subjective Date/time seen: 10/27/20 13:19 Mrs. Hogan is a 60 y.o. female with PMH significant for essential hypertension, MARIA E, and tobacco dependence who is seen in follow-up for acute hypoxic respiratory failure secondary to COVID-19 pneumonia. She feels better today. Oxygen requirements have increased to 8 liters. She still has dyspnea on exertion. She is not having any chest pain or pleuritic pain. She reports no significant cough. She is using her incentive spirometer and practicing deep breathing. She has no leg pain or swelling. She has no nausea, vomiting, or abdominal pain. Her appetite is good. Review of Systems Review of Systems: All systems reviewed & are unremarkable except as noted in HPI and below Exam Narrative: Exam Narrative: General: Pleasant, well-developed, well-nourished and obese 60 y.o. female lying semi-recumbent in bed eating lunch in no acute distress. HEENMT: Normocephalic and atraumatic. Sclera anicteric. Oral mucosa moist. Neck: Supple. Cardiac: Regular rate and rhythm. S1 and S2 normal. No murmur. Lungs: Effort normal. On 8 liters per nasal cannula. Lungs have inspiratory and expiratory throughout both lung ramirez, increased. Abdomen: Bowel sounds are normoactive. Abdomen is soft, non-distended, and non-tender. No guarding or rebound. Extremities: Warm and well-perfused. No lower extremity edema or calf tenderness. Pedal pulses are palpable, 2+. Neurological: Alert. Exam non-focal to casual conversation. Speech is clear. Skin: Warm and dry.
[2020-10-27 16:00] VITALS: BP 112/83; PULSE 68; RESP 16; TEMP 36.7; O2SAT 90
[2020-10-27 16:18] LABS: Pneumococcal Antigen Urine Not Detected (Not Detected)
[2020-10-27] MEDS: FUROSEMIDE INJ 40 MG/4 ML VIAL 20 MG IV PUSH (17:31)
[2020-10-27 20:00] VITALS: BP 128/70; PULSE 70; PULSE 72; RESP 22; TEMP 36.5; O2SAT 92; O2SAT 96
[2020-10-28] VITALS (14 sets, daily range): BP systolic 105–145; BP diastolic 54–99; PULSE 65–83; RESP 20–36; TEMP 36.5–37.3; O2SAT 82–96
[2020-10-28] MEDS: ALBUTEROL SULFATE (*SP) INHALER 2 PUFF INHALATION ×4 (02:50→20:10)
[2020-10-28 04:21] LABS: Legionella pneumophila Ag Ur Not Detected (Not Detected)
[2020-10-28 06:29] LABS: Basophils Absolute Auto 0.1 K/mm3 (0.0-0.1); Basophils Percent Auto 0.3 % (0.2-1.2); Eosinophils Absolute Auto 0.2 K/mm3 (0-0.3); Eosinophils Percent Auto 1.3 % (0-4.4); Hematocrit 40.4 % (37.0-47.0); Hemoglobin 13.4 g/dL (12.0-15.0); Immature Granulocyte Absolute 0.79 K/mm3 (0.00-0.031); Immature Granulocyte Percent A 4.5 % (0-0.5); Lymphocytes Absolute Auto 1.52 K/mm3 (0.9-3.2); Lymphocytes Percent Auto 8.7 % (18.3-44.2); Mean Corpuscular HGB Conc 33.2 g/dl (32-36); Mean Corpuscular Hemoglobin 28.8 pg (26-34); Mean Corpuscular Volume 86.7 fl (80-100); Mean Platelet Volume 9.6 fl (7.4-10.4); Monocytes Percent Auto 5.8 % (2.6-8.5); Neutrophils Absolute Auto 13.8 K/mm3 (1.3-6.7); Neutrophils Percent Auto 79.4 % (45.5-73.1); Nucleated Red Blood Cells Perc 0.1 % (0.0-0.2); Platelet Count Result 425 k/mm3 (150-375); Red Blood Count 4.66 M/mm3 (4.2-5.4); Red Cell Distribution Width 12.1 % (11.5-14.5); White Blood Count 17.4 K/mm3 (4.5-10.0)
[2020-10-28 07:52] LABS: Alanine Aminotransferase 17 U/L (4-35); Albumin Level 3.2 g/dL (3.5-5.1); Alkaline Phosphatase 86 U/L (38-126); Anion Gap 5 mmol/L (8-16); Aspartate Amino Transferase 30 U/L (14-36); Bilirubin,Total 0.4 mg/dL (0.2-1.3); Blood Urea Nitrogen 23 mg/dL (7-17); Calcium 8.8 mg/dL (8.4-10.2); Carbon Dioxide 32 mmol/L (22-30); Chloride 104 mmol/L (98-107); Creatine Kinase 20 U/L (30-135); Estimated CRCL calculation 80 ml/min; Estimated Glomerular Filt Rate > 60; Glucose 101 mg/dL (65-105); Lactate Dehydrogenase 862 U/L (313-618); Magnesium 2.1 mg/dL (1.6-2.3); Potassium 3.4 mmol/L (3.4-5.0); Sodium 141 mmol/L (137-145)
[2020-10-28] MEDS: FAMOTIDINE 20 MG TABLET PO ×2 (09:11→18:48)
[2020-10-28] MEDS: SERTRALINE HCL 50 MG TABLET BY MOUTH (09:11)
[2020-10-28] MEDS: DEXAMETHASONE SOD PHOS INJ 4 MG/ML VIAL 6 MG IV PUSH (09:12)
[2020-10-28] MEDS: ENOXAPARIN 40 MG/0.4 ML SYRINGE SUB-Q ×2 (09:12→20:10)
[2020-10-28] MEDS: SODIUM CHLORIDE 0.9% IV 250 ML 30 ML IV CONT (12:38)
--- NOTE | 2020-10-28 16:44 | PM.IMPN ---
Progress Note: A&P Assessment and Plan (1) Acute respiratory failure with hypoxia: Code(s): J96.01 - Acute respiratory failure with hypoxia Status: Acute Assessment and Plan: Secondary to COVID-19 pneumonia. Chest CTA negative for PE. Oxygen requirements continue to increase and she is currently requiring 14 L per high-flow nasal cannula. Continue supplemental oxygen as needed, wean as tolerated. Will add non-rebreather if O2 requirements increased. Will then consider BiPAP or Airvo. Will plan to transition to IMU if further increase in O2. RT to assess and treat Continue treatment of COVID-19 as below Continue to monitor (2) COVID-19: Code(s): U07.1 - COVID-19 Status: Acute Assessment and Plan: She tested positive for COVID-19 10/16/20. She noticed shortness of breath worsening within the past week prior to admission. Oxygen requirements increased and she is on 14 liters now as above. Administered convalescent plasma today. Plan to continue dexamethasone (day 03/16, initiated 10/23/20). She completed remdesivir on 10/27/20. Continue incentive spirometry Continue mucinex Continue albuterol via MDI Trend acute phase reactants Encourage prone positioning Continue supplemental oxygen as needed to maintain oxygen saturation >90% Continue isolation precautions (3) MARIA E (generalized anxiety disorder): Code(s): F41.1 - Generalized anxiety disorder Status: Acute Assessment and Plan: Mood is stable. She is anxious and worried about her medical condition which is understandable given her circumstances Continue sertraline I spoke with the patient for quite some time and provided reassurance and answered all of her questions. This seemed to help her. (4) Essential hypertension: Code(s): I10 - Essential (primary) hypertension Status: Chronic Assessment and Plan: Blood pressures are reasonable. BP evaluated today and stable at 122/60. Telmisartan-HCTZ is on hold. Continue to monitor (5) Mediastinal mass: Code(s): J98.59 - Other diseases of mediastinum, not elsewhere classified Status: Acute Assessment and Plan: Chest CTA shows anterior mediastinal mass measuring 4.6x3.0cm with differential to include thymoma, thymic carcinoma, and lymphadenopathy. Discussed with the patient and she will need referral to cardiothoracic surgery once she is discharged for histologic confirmation Discussed with Kacey at Dr. Shaffer's office regarding the need for referral today (10/27) (6) Leukocytosis: Code(s): D72.829 - Elevated white blood cell count, unspecified Status: Acute Assessment and Plan: Continues to increase. May be secondary to steroid therapy. Given duration of symptoms, secondary bacterial pneumonia is considered. Continue to monitor CBC daily Initiate IV Zosyn and Ceftriaxone to cover for secondary bacterial pneumonia Check UA Subjective Date/time seen: 10/28/20 16:44 Interval history: Date of service: 10/28/2020 Natasha Hogan is a 60-year-old female with a history of hypertension and anxiety who is seen in follow-up for COVID-19 pneumonia. She reports that she is feeling okay at this time. She is very worried about her condition and is feeling anxious. She feels very alone stuck in her room with no visitors. She was very worried about her increased oxygen. Otherwise she is feeling well. She denies dyspnea at rest. She is coughing only occasionally. Cough is nonproductive. She denies chest pain. She denies nausea or vomiting. No anosmia or dysgeusia. She is having regular bowel movements. She denies urinary symptoms. She has been ambulating to the commode which causes [place]. She reports she was drinking less today because she was worried about getting up to go to the bathroom. We will place a Champion to allow for bedrest and I discussed this with her. She denies
[2020-10-28 18:19] LABS: Add Urine Microscopic? YES; Appearance Urine Clear (Clear); Bilirubin Urine Negative (Negative); Blood Urine Negative (Negative); Color Urine Yellow (Yellow); Glucose Urine UA Negative (Negative); Ketones Urine Negative (Negative); Leukocyte Esterase Ur Negative LEU/UL (Negative); Mucus Urine Rare /lpf; Nitrate Urine Negative (Negative); Protein Urine 1+ mg/dL (Negative); RBC Urine 0-2 /hpf (0-2); Specific Grav Ur 1.025 (1.001-1.035); Squamous Epithelial Cell Urine Rare /hpf (Few)
[2020-10-28] MEDS: guaiFENesin 12 HR 600 MG TABCR PO (20:10)
[2020-10-29] VITALS (13 sets, daily range): BP systolic 116–147; BP diastolic 72–91; PULSE 56–79; RESP 20–28; TEMP 36.4–37.4; O2SAT 81–99
[2020-10-29] MEDS: ALBUTEROL SULFATE (*SP) INHALER 2 PUFF INHALATION ×4 (02:25→20:37)
[2020-10-29 06:46] LABS: Hematocrit 39.7 % (37.0-47.0); Hemoglobin 12.9 g/dL (12.0-15.0); Mean Corpuscular HGB Conc 32.5 g/dl (32-36); Mean Corpuscular Hemoglobin 28.2 pg (26-34); Mean Corpuscular Volume 86.7 fl (80-100); Mean Platelet Volume 9.5 fl (7.4-10.4); Platelet Count Result 467 k/mm3 (150-375); Red Blood Count 4.58 M/mm3 (4.2-5.4); Red Cell Distribution Width 11.9 % (11.5-14.5); White Blood Count 20.1 K/mm3 (4.5-10.0)
[2020-10-29 07:12] LABS: Alanine Aminotransferase 18 U/L (4-35); Albumin Level 3.2 g/dL (3.5-5.1); Alkaline Phosphatase 90 U/L (38-126); Anion Gap 5 mmol/L (8-16); Aspartate Amino Transferase 28 U/L (14-36); Bilirubin,Total 0.4 mg/dL (0.2-1.3); Blood Urea Nitrogen 18 mg/dL (7-17); Calcium 8.7 mg/dL (8.4-10.2); Carbon Dioxide 32 mmol/L (22-30); Chloride 103 mmol/L (98-107); Estimated CRCL calculation 91 ml/min; Estimated Glomerular Filt Rate > 60; Glucose 105 mg/dL (65-105); Lactate Dehydrogenase 918 U/L (313-618); Potassium 3.9 mmol/L (3.4-5.0); Sodium 140 mmol/L (137-145)
[2020-10-29 07:38] LABS: CRP 15.4 mg/dL (<1.0)
[2020-10-29] MEDS: FAMOTIDINE 20 MG TABLET PO ×2 (08:12→16:15)
[2020-10-29] MEDS: SERTRALINE HCL 50 MG TABLET BY MOUTH (08:12)
[2020-10-29] MEDS: DEXAMETHASONE SOD PHOS INJ 4 MG/ML VIAL 6 MG IV PUSH (08:12)
[2020-10-29] MEDS: ENOXAPARIN 40 MG/0.4 ML SYRINGE SUB-Q ×2 (08:12→20:38)
[2020-10-29] MEDS: guaiFENesin 12 HR 600 MG TABCR PO ×2 (08:33→20:38)
[2020-10-29 09:28] LABS: Base Excess ABG 1.4 mEq/l (+/-2.0); Carboxyhemoglobin 0.3 % THb (0-2.0); Fractional Inspired Oxygen 100 %; HCO3 ABG 24.8 mEq/l (22.0-26.0); Methemoglobin ABG 0.2 %THb (0-1.5); Oxygen Saturation ABG 91.2 % (95.0-100.0); Oxyhemoglobin 89.5 % THb (90.0-100.0); PCO2 ABG 35.4 mmHg (35.0-45.0); PO2 ABG 56.6 mmHg (80.0-100.0); PO2 FiO2 Ratio Arterial Blood 0.57 %; Total Hemoglobin 13.5 g/dL (12.0-18.0); pH ABG 7.464 (7.350-7.450)
[2020-10-29 09:43] LABS: Modified Allen's Test Pass; Site Drawn RIGHT RADIAL
[2020-10-29 09:44] LABS: Device HIGH FLOW NASAL CANN
--- NOTE | 2020-10-29 14:18 | PM.IMPN ---
Progress Note: A&P Assessment and Plan (1) Acute respiratory failure with hypoxia: Code(s): J96.01 - Acute respiratory failure with hypoxia Status: Acute Assessment and Plan: Secondary to COVID-19 pneumonia. Chest CTA negative for PE. Oxygen requirements continue to increase and she is currently requiring 15 L per high-flow nasal cannula with non-rebreather. Continue supplemental oxygen as needed, wean as tolerated. Will consider BiPAP or Airvo if unable to maintain adequate O2 sats. Given continued increase, will proceed with transfer to IMU pending bed availability RT to assess and treat Continue treatment of COVID-19 as below (2) COVID-19: Code(s): U07.1 - COVID-19 Status: Acute Assessment and Plan: She tested positive for COVID-19 10/16/20. She noticed shortness of breath worsening within the past week prior to admission. CXR showed patchy bilateral airspace opacities consistent with COVID-19 pneumonia. Oxygen requirements increased and she is on 15 L HFNC w nonrebreather as above. Plan to continue dexamethasone (day 05/16, initiated 10/23/20). She completed remdesivir on 10/27/20. Convalescent plasma administered 10/28/2020 Continue incentive spirometry Continue supportive care to include mucinex, scheduled albuterol via MDI, and acetaminophen prn Trend acute phase reactants Encourage prone positioning Continue supplemental oxygen as needed to maintain oxygen saturation >90% Continue isolation precautions (3) MARIA E (generalized anxiety disorder): Code(s): F41.1 - Generalized anxiety disorder Status: Acute Assessment and Plan: Mood is stable. She is anxious and worried about her medical condition which is understandable given her circumstances Continue sertraline I spoke with the patient for quite some time and provided reassurance and answered all of her questions. This seemed to help her. (4) Essential hypertension: Code(s): I10 - Essential (primary) hypertension Status: Chronic Assessment and Plan: Blood pressures are reasonable. BP evaluated today and stable at 135/76. Telmisartan-HCTZ is on hold. Continue to monitor (5) Mediastinal mass: Code(s): J98.59 - Other diseases of mediastinum, not elsewhere classified Status: Acute Assessment and Plan: Chest CTA showed anterior mediastinal mass measuring 4.6x3.0cm with differential to include thymoma, thymic carcinoma, and lymphadenopathy. Discussed with the patient and she will need referral to cardiothoracic surgery once she is discharged for histologic confirmation Previous provider discussed with Kacey at Dr. Shaffer's office regarding the need for referral on 10/27/20. (6) Leukocytosis: Code(s): D72.829 - Elevated white blood cell count, unspecified Status: Acute Assessment and Plan: Continues to increase. She remains afebrile. May be secondary to steroid therapy. Given duration of symptoms, secondary bacterial pneumonia is considered. UA is not concerning for infection. Blood cultures are negative. Continue to monitor CBC daily IV Zosyn and Ceftriaxone for empiric coverage was initiated on 10/28 due to concerns for secondary bacterial pneumonia. Will evaluate repeat CXR. Will attempt collection of sputum culture although patient denies productive cough. Subjective Date/time seen: 10/29/20 14:18 Interval history: Date of service: 10/29/2020 Natasha Hogan is a 60-year-old female with a history of hypertension and anxiety who is seen in follow-up for COVID-19 pneumonia. She is feeling about the same today. Overall, medically, she is doing okay. She denies significant dyspnea. She is not coughing. She denies chest pain, orthopnea, PND. She has been on bedrest which is probably helping her symptoms. She is extremely concerned about her increasing oxygen requirements. She is tearful during our conversation and
--- NOTE | 2020-10-29 16:37 | PC.NURSE ---
This patient, Natsaha Hogan, was transferred to IMU (Room 210) on 10/29/20 at 1605. Personal belongings sent with patient. Report given to PATIENCE Velázquez. Appropriate documentation sent with patient.
--- NOTE | 2020-10-29 16:43 | PC.NURSE ---
Addendum entered by Melania Desir RN 10/29/20 16:44: Pt arrived on unit at 1600 Original Note: This patient, Natasha Hogan, was received from [[id number]] on 10/29/20 at 1643. Patient/family oriented to unit policies and routines Report received from PATIENCE Novoa @ 0765
[2020-10-29 21:17] LABS: Vancomycin Trough 10.4 ug/mL (10.0-20.0)
[2020-10-30] VITALS (24 sets, daily range): BP systolic 100–148; BP diastolic 52–75; PULSE 52–94; RESP 18–24; TEMP 36.2–37.2; O2SAT 82–99
[2020-10-30] MEDS: ALBUTEROL SULFATE (*SP) INHALER 2 PUFF INHALATION (03:09)
[2020-10-30 07:03] LABS: Hematocrit 40.5 % (37.0-47.0); Hemoglobin 13.3 g/dL (12.0-15.0); Mean Corpuscular HGB Conc 32.8 g/dl (32-36); Mean Corpuscular Hemoglobin 28.4 pg (26-34); Mean Corpuscular Volume 86.4 fl (80-100); Mean Platelet Volume 9.6 fl (7.4-10.4); Platelet Count Result 453 k/mm3 (150-375); Red Blood Count 4.69 M/mm3 (4.2-5.4); Red Cell Distribution Width 11.9 % (11.5-14.5); White Blood Count 19.8 K/mm3 (4.5-10.0)
[2020-10-30 08:07] LABS: Alanine Aminotransferase 18 U/L (4-35); Alkaline Phosphatase 92 U/L (38-126); Anion Gap 4 mmol/L (8-16); Aspartate Amino Transferase 31 U/L (14-36); Bilirubin,Total 0.4 mg/dL (0.2-1.3); Blood Urea Nitrogen 19 mg/dL (7-17); CRP 7.4 mg/dL (<1.0); Calcium 8.6 mg/dL (8.4-10.2); Carbon Dioxide 32 mmol/L (22-30); Chloride 103 mmol/L (98-107); Estimated CRCL calculation 91 ml/min; Estimated Glomerular Filt Rate > 60; Glucose 95 mg/dL (65-105); Lactate Dehydrogenase 920 U/L (313-618); Potassium 3.8 mmol/L (3.4-5.0); Sodium 139 mmol/L (137-145)
--- NOTE | 2020-10-30 08:20 | PC.NURSE ---
Patient upon entering room. Stated she was having a panic attack. Calmed patient down. Patient's saturations in the 80s. Respiratory called and placed patient on Airvo at 60L and 95%.
[2020-10-30] MEDS: SERTRALINE HCL 50 MG TABLET BY MOUTH (10:39)
[2020-10-30] MEDS: FAMOTIDINE 20 MG TABLET PO ×2 (10:39→17:18)
[2020-10-30] MEDS: ENOXAPARIN 40 MG/0.4 ML SYRINGE SUB-Q ×2 (10:39→20:35)
[2020-10-30] MEDS: DEXAMETHASONE SOD PHOS INJ 4 MG/ML VIAL 6 MG IV PUSH (10:39)
[2020-10-30] MEDS: guaiFENesin 12 HR 600 MG TABCR PO ×2 (10:39→20:34)
--- NOTE | 2020-10-30 11:14 | PM.CNPUL ---
Assessment and Plan Additional Plan Discussed gravity of situation with staff and with patient. Her hypoxia is severe enough that she is close to intubation but BiPAP would be chosen prior to that most likely. I discussed that possibility with her. Will follow with you. History of Present Illness History of Present Illness Consult date: 10/30/20 Chief complaint: COVID + WITH HYPOXIA Narrative: 60-year-old lady transferred to ICU from 3rd floor. COVID positivity. Received plasma treatment 10/28/20 and judged too late for additional specific anti-COVID Rx. Severe hypoxemia requiring high-flow O2 with AirVu at 60 L Antibiotics include vancomycin and cephalosporin. Complicating this is her extreme anxiety. No history of CPAP / BiPAP use or of known sleep pathology. Review of Systems Review of Systems: Narrative: Chronic smoker now 1 ppw or so. She is urged to quit entirely. 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 Typically she was smoke about a pack in a week. Socially drinks alcohol no marijuana or illicit drugs. Her is a durable power insurance defense attorney for healthcare. The patient desires to be a full code. Smoking status: Never smoker Alcohol intake: current Drinks per week: 1 Substance use: never Substance use type: does not use Gender identity (if verbalized by the patient): Female Sexual Orientation (if Verbalized by the Patient): Straight or Heterosexual Spiritual care concerns: No Meds Home Medications and Allergies Home Medications Medication Instructions Recorded Confirmed Type fluconazole 150 mg tablet 150 mg PO ONCE #2 tablet 07/25/20 10/23/20 Rx sertraline 50 mg tablet See Rx Instructions .ROUTE 08/20/20 10/23/20 Rx .COMPLEX #90 tablet telmisartan 80 See Rx Instructions .ROUTE 08/20/20 10/23/20 Rx mg-hydrochlorothiazide 12.5 mg .COMPLEX #180 tablet tablet albuterol sulfate 2 puff INHALATION QID PRN #6.7 g 10/22/20 10/23/20 Rx azithromycin [Zithromax Z-Faisal] See Rx Instructions .ROUTE 10/22/20 10/23/20 Rx .COMPLEX #6 tablet famotidine [Pepcid] 20 mg PO BID #7 tablet 10/22/20 10/23/20 Rx loratadine [Claritin] 10 mg PO DAILY PRN #7 tablet 10/22/20 10/23/20 Rx Allergies Allergy/AdvReac Type Severity Reaction Status Date / Time No Known Allergies Allergy Mild Verified 10/23/20 14:42 Vital Signs Vital Signs - 24 hr 10/29/20 12:00 10/29/20 16:00 10/29/20 18:00 Temperature 36.4 C 37.1 C Pulse Rate 68 67 61 Respiratory Rate 28 H 22 H Blood Pressure 129/85 119/79 Pulse Oximetry 95 96 10/29/20 20:00 10/29/20 20:11 10/29/20 22:00 Temperature 36.4 C L Pulse Rate 63 66 57 L Respiratory Rate 20 Blood Pressure 129/91 H Pulse Oximetry 94 93 10/29/20 23:10 10/29/20 23:56 10/30/20 00:00 Temperature 37.4 C Pulse Rate 56 L 52 L Respiratory Rate 20 Blood Pressure 127/81 Pulse Oximetry 94 99 10/30/20 02:00 10/30/20 04:00 10/30/20 06:00 Temperature 36.2 C L Pulse Rate 59 L 59 L 94 Respiratory Rate 22 H Blood Pressure 130/59 L Pulse Oximetry 94 10/30/20 07:15 10/30/20 08:28 10/30/20 08:29 Temperature 36.4 C L Pulse Rate 63 Respiratory Rate 22 H Bl
--- NOTE | 2020-10-30 11:59 | P.PNIM_ITS ---
Progress Note: A&P Assessment and Plan (1) Acute respiratory failure with hypoxia: Code(s): J96.01 - Acute respiratory failure with hypoxia Status: Acute Assessment and Plan: Secondary to COVID-19 pneumonia. Chest CTA negative for PE. Oxygen requirements continue to increase and she is currently requiring 15 L per high-flow nasal cannula with non-rebreather. * Continue supplemental oxygen as needed, wean as tolerated. Will consider BiPAP or Airvo if unable to maintain adequate O2 sats. Given continued increase, will proceed with transfer to IMU pending bed availability * RT to assess and treat * Continue treatment of COVID-19 as below (2) COVID-19: Code(s): U07.1 - COVID-19 Status: Acute Assessment and Plan: She tested positive for COVID-19 10/16/20. She noticed shortness of breath worsening within the past week prior to admission. CXR showed patchy bilateral airspace opacities consistent with COVID-19 pneumonia. Oxygen requirements increased and she is on 15 L HFNC w nonrebreather as above. * Plan to continue dexamethasone (day 05/16, initiated 10/23/20). She completed remdesivir on 10/27/20. * Convalescent plasma administered 10/28/2020 * Continue incentive spirometry * Continue supportive care to include mucinex, scheduled albuterol via MDI, and acetaminophen prn * Trend acute phase reactants * Encourage prone positioning * Continue supplemental oxygen as needed to maintain oxygen saturation >90% * Continue isolation precautions (3) MARIA E (generalized anxiety disorder): Code(s): F41.1 - Generalized anxiety disorder Status: Acute Assessment and Plan: Mood is stable. She is anxious and worried about her medical condition which is understandable given her circumstances * Continue sertraline * I spoke with the patient for quite some time and provided reassurance and answered all of her questions. This seemed to help her. (4) Essential hypertension: Code(s): I10 - Essential (primary) hypertension Status: Chronic Assessment and Plan: Blood pressures are reasonable. BP evaluated today and stable at 135/76. Telmisartan-HCTZ is on hold. * Continue to monitor (5) Mediastinal mass: Code(s): J98.59 - Other diseases of mediastinum, not elsewhere classified Status: Acute Assessment and Plan: Chest CTA showed anterior mediastinal mass measuring 4.6x3.0cm with differential to include thymoma, thymic carcinoma, and lymphadenopathy. * Discussed with the patient and she will need referral to cardiothoracic surgery once she is discharged for histologic confirmation * Previous provider discussed with Kacey at Dr. Shaffer's office regarding the need for referral on 10/27/20. (6) Leukocytosis: Code(s): D72.829 - Elevated white blood cell count, unspecified Status: Acute Assessment and Plan: Continues to increase. She remains afebrile. May be secondary to steroid therapy. Given duration of symptoms, secondary bacterial pneumonia is considered. UA is not concerning for infection. Blood cultures are negative. * Continue to monitor CBC daily * IV Zosyn and Ceftriaxone for empiric coverage was initiated on 10/28 due to concerns for secondary bacterial pneumonia. Will evaluate repeat CXR. * Will attempt collection of sputum culture although patient denies productive cough. Additional Plan Case was discussed with patient and the nursing staff in detail. Will consult pulmonary and get the opinion about further management of the patient. I
--- NOTE | 2020-10-30 12:57 | PCDIET ---
Weekly nutritional screen. Patient is tolerating current diet, heart healthy which is appropriate, with adequate intake, 75-100% of meals. Bowels moving. No weight loss reported. No nutritional needs at this time.
[2020-10-30] MEDS: ALBUTEROL SULFATE NEB 2.5 MG/0.5 ML INH INHALATION ×2 (13:17→20:57)
[2020-10-30] MEDS: IPRATROPIUM BR 0.02% INH SOLN 0.5 MG/2.5 ML VIAL INHALATION ×2 (13:17→20:57)
[2020-10-31] VITALS (20 sets, daily range): BP systolic 100–127; BP diastolic 55–78; PULSE 53–76; RESP 20–26; TEMP 36–36.6; O2SAT 91–97
[2020-10-31] MEDS: ALBUTEROL SULFATE NEB 2.5 MG/0.5 ML INH INHALATION ×4 (03:26→21:04)
[2020-10-31] MEDS: IPRATROPIUM BR 0.02% INH SOLN 0.5 MG/2.5 ML VIAL INHALATION ×4 (03:26→21:04)
[2020-10-31] MEDS: DEXAMETHASONE SOD PHOS INJ 4 MG/ML VIAL 6 MG IV PUSH (08:27)
[2020-10-31] MEDS: ENOXAPARIN 40 MG/0.4 ML SYRINGE SUB-Q ×2 (08:28→20:39)
[2020-10-31] MEDS: SERTRALINE HCL 50 MG TABLET BY MOUTH (08:29)
[2020-10-31] MEDS: guaiFENesin 12 HR 600 MG TABCR PO ×2 (08:29→20:39)
[2020-10-31] MEDS: FAMOTIDINE 20 MG TABLET PO ×2 (08:29→18:21)
--- NOTE | 2020-10-31 09:45 | PM.PNPUL ---
Progress Note: A&P Additional Plan I think positive airway pressure may prove therapeutic for her. Her oxygenation is stable right now at very high FiO2, so holding for now but I would intervene with BiPAP if any evidence for further decline. Time Spent With Patient Time with patient: 15 - 25 minutes Subjective Date/time seen: 10/31/20 09:45 No protective head gear available today so reviewed extensively with nurse (but not examined) and ultimately patient found to be stable. She continues high-flow O2 at 60 L and SaO2 93-94%. Objective Data Vital Signs Vital Signs: Vital Signs - 24 hr 10/30/20 10:00 10/30/20 10:45 10/30/20 12:00 Temperature 37.2 C Pulse Rate 73 73 Respiratory Rate 18 Blood Pressure 148/64 H Pulse Oximetry 92 93 10/30/20 13:00 10/30/20 13:22 10/30/20 13:27 Temperature Pulse Rate 74 74 Respiratory Rate 22 H 22 H Blood Pressure Pulse Oximetry 97 10/30/20 14:00 10/30/20 15:56 10/30/20 16:00 Temperature 37.1 C Pulse Rate 59 L 64 55 L Respiratory Rate 18 Blood Pressure 110/52 L Pulse Oximetry 94 10/30/20 16:10 10/30/20 18:00 10/30/20 20:00 Temperature 36.5 C Pulse Rate 72 54 L Respiratory Rate 24 H Blood Pressure 122/75 Pulse Oximetry 95 97 10/30/20 20:58 10/30/20 21:10 10/30/20 22:00 Temperature Pulse Rate 59 L 58 L 54 L Respiratory Rate 22 H 20 Blood Pressure Pulse Oximetry 92 10/30/20 23:59 10/31/20 00:00 10/31/20 02:00 Temperature 36.2 C L Pulse Rate 54 L 76 53 L Respiratory Rate 22 H Blood Pressure 100/57 L Pulse Oximetry 97 97 10/31/20 03:27 10/31/20 03:38 10/31/20 04:00 Temperature 36.2 C L Pulse Rate 61 67 57 L Respiratory Rate 22 H 22 H 20 Blood Pressure 111/55 L Pulse Oximetry 95 10/31/20 06:00 10/31/20 08:00 10/31/20 09:00 Temperature 36.6 C Pulse Rate 56 L 63 68 Respiratory Rate 20 24 H Blood Pressure 123/77 Pulse Oximetry 91 93 10/31/20 09:17 Temperature Pulse Rate 67 Respiratory Rate 24 H Blood Pressure Pulse Oximetry Intake/Output Intake/Output: Intake & Output 10/28/20 10/29/20 10/30/20 10/31/20 23:59 23:59 23:59 23:59 Intake Total 2598 2140 1410 300 Output Total 1500 1550 1175 500 Balance 1098 590 235 -200 Meds/Results Medications: Active Medications Generic Name Dose Route Start Last Admin Trade Name Freq PRN Reason Stop Dose Admin Acetaminophen 650 mg 10/23/20 13:56 10/23/20 15:17 Acetaminophen 325 Mg Tablet PO 650 mg Q4H PRN Administration Headache Albuterol 2.5 mg 10/30/20 14:00 10/31/20 09:00 Albuterol Sulfate Neb 2.5 Mg/0.5 Ml Inh INHALATION 2.5 mg Q6HRT WILLIE Administration Dexamethasone Sodium Phosphate 6 mg 10/23/20 14:05 10/31/20 08:27 Dexamethasone Sod Phos Inj 4 Mg/Ml Vial IV PUSH 11/01/20 09:01 6 mg DAILY WILLIE Administration Enoxaparin Sodium 40 mg 10/24/20 21:00 10/31/20 08:28 Enoxaparin 40 Mg/0.4 Ml Syringe SUB-Q 40 mg Q12HR WILLIE Administration Famotidine 20 mg 10/23/20 17:00 10/31/20 08:29 Famotidine 20 Mg Tablet PO 20 mg BID WILLIE Administration Guaifenesin 600 mg 10/28/20 21:00 10/31/20 08:29 Guaifenesin 12 Hr 600 Mg Tabcr PO 600 mg Q12HR WILLIE Administration Ceftriaxone Sodium/Dextrose 1 gm in 50 mls @ 100 mls/hr 10/28/20 09:00 10/31/20 08:26 Rocephin 1 Gm/D5w 50 Ml IVPB 100 mls/hr DAILY WILLIE Administration Vancomycin HCl 1,500 mg in 500 mls @ 333.333 mls/hr 10/28/20 09:00 10/31/20 08:26 Vancomycin 1,500 Mg/D5w 500 Ml IVPB 333.33 mls/hr Q12H WILLIE Administration Ipratropium [place] 0.5 mg 10/30/20 14:00 10/31/20 09:00 Ipratropium Br 0.02% Inh Soln 0.5 Mg/2.5 Ml Vial INHALATION 0.5 mg Q6HRT WILLIE Administration Loratadine 10 mg 10/23/20 16:55 10/27/20 08:13 Loratadine 10 Mg Tablet PO 10 mg DAILY PRN Administration allergy symptoms Sertraline HCl 50 mg 10/24/20 09:00 10/31/20 08:29 Sertraline Hcl 50 Mg Tablet
[2020-10-31 20:37] LABS: Glucose Point of Care 138 (65-105)
[2020-11-01] VITALS (27 sets, daily range): BP systolic 100–144; BP diastolic 54–74; PULSE 57–77; RESP 20–45; TEMP 36.3–37.1; O2SAT 89–97
[2020-11-01] MEDS: ALBUTEROL SULFATE NEB 2.5 MG/0.5 ML INH INHALATION ×4 (02:32→20:35)
[2020-11-01] MEDS: IPRATROPIUM BR 0.02% INH SOLN 0.5 MG/2.5 ML VIAL INHALATION ×4 (02:32→20:35)
[2020-11-01] MEDS: guaiFENesin 12 HR 600 MG TABCR PO ×2 (07:42→21:15)
[2020-11-01] MEDS: LORATADINE 10 MG TABLET PO (07:42)
[2020-11-01] MEDS: SERTRALINE HCL 50 MG TABLET BY MOUTH (07:43)
[2020-11-01] MEDS: FAMOTIDINE 20 MG TABLET PO ×2 (07:43→17:41)
[2020-11-01] MEDS: ENOXAPARIN 40 MG/0.4 ML SYRINGE SUB-Q ×2 (08:00→21:15)
[2020-11-01] MEDS: DEXAMETHASONE SOD PHOS INJ 4 MG/ML VIAL 6 MG IV PUSH (08:00)
--- NOTE | 2020-11-01 09:59 | PM.IMPN ---
Progress Note: A&P Assessment and Plan (1) Acute respiratory failure with hypoxia: Code(s): J96.01 - Acute respiratory failure with hypoxia Status: Acute Assessment and Plan: Secondary to COVID-19 pneumonia. Chest CTA negative for PE. Oxygen requirements continue to increase and she is currently requiring 15 L per high-flow nasal cannula with non-rebreather. Continue supplemental oxygen as needed, wean as tolerated. Will consider BiPAP or Airvo if unable to maintain adequate O2 sats. Given continued increase, will proceed with transfer to IMU pending bed availability RT to assess and treat Continue treatment of COVID-19 as below (2) COVID-19: Code(s): U07.1 - COVID-19 Status: Acute Assessment and Plan: She tested positive for COVID-19 10/16/20. She noticed shortness of breath worsening within the past week prior to admission. CXR showed patchy bilateral airspace opacities consistent with COVID-19 pneumonia. Oxygen requirements increased and she is on 15 L HFNC w nonrebreather as above. Plan to continue dexamethasone (day 05/16, initiated 10/23/20). She completed remdesivir on 10/27/20. Convalescent plasma administered 10/28/2020 Continue incentive spirometry Continue supportive care to include mucinex, scheduled albuterol via MDI, and acetaminophen prn Trend acute phase reactants Encourage prone positioning Continue supplemental oxygen as needed to maintain oxygen saturation >90% Continue isolation precautions (3) MARIA E (generalized anxiety disorder): Code(s): F41.1 - Generalized anxiety disorder Status: Acute Assessment and Plan: Mood is stable. She is anxious and worried about her medical condition which is understandable given her circumstances Continue sertraline I spoke with the patient for quite some time and provided reassurance and answered all of her questions. This seemed to help her. (4) Essential hypertension: Code(s): I10 - Essential (primary) hypertension Status: Chronic Assessment and Plan: Blood pressures are reasonable. BP evaluated today and stable at 135/76. Telmisartan-HCTZ is on hold. Continue to monitor (5) Mediastinal mass: Code(s): J98.59 - Other diseases of mediastinum, not elsewhere classified Status: Acute Assessment and Plan: Chest CTA showed anterior mediastinal mass measuring 4.6x3.0cm with differential to include thymoma, thymic carcinoma, and lymphadenopathy. Discussed with the patient and she will need referral to cardiothoracic surgery once she is discharged for histologic confirmation Previous provider discussed with Kacey at Dr. Shaffer's office regarding the need for referral on 10/27/20. (6) Leukocytosis: Code(s): D72.829 - Elevated white blood cell count, unspecified Status: Acute Assessment and Plan: Continues to increase. She remains afebrile. May be secondary to steroid therapy. Given duration of symptoms, secondary bacterial pneumonia is considered. UA is not concerning for infection. Blood cultures are negative. Continue to monitor CBC daily IV Zosyn and Ceftriaxone for empiric coverage was initiated on 10/28 due to concerns for secondary bacterial pneumonia. Will evaluate repeat CXR. Will attempt collection of sputum culture although patient denies productive cough. Additional Plan Case was discussed with patient and the nursing staff in detail. Will consult pulmonary and get the opinion about further management of the patient. If the condition does not improve might have to intubate patient. Patient agrees with current plan of care and treatment. Will get infectious disease consult also. Subjective Date/time seen: 11/01/20 09:59 Interval history: Patient was seen during the morning rounds today. Patient has mild to moderate shortness of breath. No chest pain. Requiring lot of oxygen. No abdominal pain nausea vomiting or
--- NOTE | 2020-11-01 12:49 | PM.PNPUL ---
Progress Note: A&P Additional Plan Severe oxygenation deficit. Seems largely stable on very high FiO2. I would favor positive-pressure Rx and have arranged for BiPAP 15.0/10.0 cm H2O. Discussed with patient and staff. Time Spent With Patient Time with patient: 25 - 35 minutes Subjective Date/time seen: 11/01/20 12:49 Interval history: Per staff, anxiety persists. Oxygenation largely stable but she desaturates to the mid 80s with movement. Otherwise SaO2 92-93%. FiO2 around 60 L (!) Exam Const: Other: Chest nearly clear. Few very distant rhonchi. Heart sounds regular. Alert. Objective Data Vital Signs Vital Signs: Vital Signs - 24 hr 10/31/20 13:30 10/31/20 14:00 10/31/20 16:00 Temperature 36.0 C L Pulse Rate 65 67 66 Respiratory Rate 24 H 26 H Blood Pressure 100/69 Pulse Oximetry 95 94 10/31/20 18:00 10/31/20 20:00 10/31/20 20:45 Temperature 36.6 C Pulse Rate 75 66 68 Respiratory Rate 24 H 22 H Blood Pressure 100/66 Pulse Oximetry 94 10/31/20 21:06 10/31/20 21:07 10/31/20 22:00 Temperature Pulse Rate 67 68 58 L Respiratory Rate 22 H 22 H Blood Pressure Pulse Oximetry 94 11/01/20 00:00 11/01/20 02:00 11/01/20 02:32 Temperature 36.6 C Pulse Rate 61 59 L 61 Respiratory Rate 22 H 24 H Blood Pressure 100/65 Pulse Oximetry 93 11/01/20 02:55 11/01/20 02:57 11/01/20 04:00 Temperature 36.9 C Pulse Rate 60 60 57 L Respiratory Rate 24 H 22 H 22 H Blood Pressure 104/54 L Pulse Oximetry 93 93 11/01/20 06:00 11/01/20 07:54 11/01/20 08:00 Temperature 36.6 C Pulse Rate 61 71 Respiratory Rate 22 H Blood Pressure 144/64 H Pulse Oximetry 91 89 L 11/01/20 08:26 11/01/20 08:39 11/01/20 10:00 Temperature Pulse Rate 68 77 68 Respiratory Rate 22 H 22 H Blood Pressure Pulse Oximetry 92 11/01/20 12:00 Temperature 36.3 C L Pulse Rate 72 Respiratory Rate 20 Blood Pressure 123/72 Pulse Oximetry 91 Intake/Output Intake/Output: Intake & Output 10/29/20 10/30/20 10/31/20 11/01/20 23:59 23:59 23:59 23:59 Intake Total 2140 1410 3070 450 Output Total 1550 1175 1050 875 Balance 004 [id number] - Meds/Results Medications: Active Medications Generic Name Dose Route Start Last Admin Trade Name Freq PRN Reason Stop Dose Admin Acetaminophen 650 mg 10/23/20 13:56 10/23/20 15:17 Acetaminophen 325 Mg Tablet PO 650 mg Q4H PRN Administration Headache Albuterol 2.5 mg 10/30/20 14:00 11/01/20 08:25 Albuterol Sulfate Neb 2.5 Mg/0.5 Ml Inh INHALATION 2.5 mg Q6HRT WILLIE Administration Enoxaparin Sodium 40 mg 10/24/20 21:00 11/01/20 08:00 Enoxaparin 40 Mg/0.4 Ml Syringe SUB-Q 40 mg Q12HR WILLIE Administration Famotidine 20 mg 10/23/20 17:00 11/01/20 07:43 Famotidine 20 Mg Tablet PO 20 mg BID WILLIE Administration Guaifenesin 600 mg 10/28/20 21:00 11/01/20 07:42 Guaifenesin 12 Hr 600 Mg Tabcr PO 600 mg Q12HR WILLIE Administration Ceftriaxone Sodium/Dextrose 1 gm in 50 mls @ 100 mls/hr 10/28/20 09:00 11/01/20 07:41 Rocephin 1 Gm/D5w 50 Ml IVPB 100 mls/hr DAILY WILLIE Administration Vancomycin HCl 1,500 mg in 500 mls @ 333.333 mls/hr 10/28/20 09:00 11/01/20 07:41 Vancomycin 1,500 Mg/D5w 500 Ml IVPB 333 mls/hr Q12H WILLIE Administration Ipratropium [place] 0.5 mg 10/30/20 14:00 11/01/20 08:25 Ipratropium Br 0.02% Inh Soln 0.5 Mg/2.5 Ml Vial INHALATION 0.5 mg Q6HRT WILLIE Administration Loratadine 10 mg 10/23/20 16:55 11/01/20 07:42 Loratadine 10 Mg Tablet PO 10 mg DAILY PRN Administration allergy symptoms Sertraline HCl 50 mg 10/24/20 09:00 11/01/20 07:43 Sertraline Hcl 50 Mg Tablet BY MOUTH 50 mg DAILY WILLIE Administration Radiology Results: ITS Impressions Chest X-Ray 11/01/20 11:12 IMPRESSION: Extensive COVID pneumonia, unchanged compared to yesterday. No pneumothorax. Labs Labs: Laboratory Results - last 24
--- NOTE | 2020-11-01 17:28 | WPDCN ---
Assessment and Plan Additional Plan 1. COVID-19 pneumonia with respiratory failure. Patient has received 5 days of Remdesivir and a single dose of convalescent plasma. Patient is also currently on Decadron day 9. Progressive respiratory failure. Currently on BiPAP. Continue supportive care. 2. Hypertension treatment defer to hospitalist. 3. Obesity 4. Leukocytosis most likely reactive versus possibly to secondary infection. Patient is on Rocephin and vancomycin. Previous blood cultures were negative. 5. Date of service 11/01/2020. CC Dr Bobby Leslie HPI Data of Consult Date/Time: 11/01/20 17:28 Requesting Physician: Christine Mckeon PA-C Primary Care Provider: Alberto Shaffer MD Consult Narrative Narrative: Natasha Hogan is a 60 year old female with history of hypertension, obesity and generalized anxiety disorder who was diagnosed with COVID 19 infection approximately the 1st week of October at [facility] pharmacy. Patient developed progressive shortness of breath and was seen in the emergency room. CT scan of the chest showed moderate patchy bilateral airspace disease suspicious for COVID-19 infection. Anterior mediastinal mass. I was requested to see her due to progression of respiratory failure. Patient has received 5 days of Remdesivir completed on October 27, a single dose of convalescent plasma on October 28 and currently is on Decadron. Patient is also empirically on Rocephin and vancomycin day 5. Currently patient is on BiPAP and tachypneic. Review of Systems Constitutional: Comments: Ill-appearing patient on BiPAP ENT: Comments: BiPAP machine in place. Cardiovascular: Cardiovascular: Reports no additional cardiovascular complaints Respiratory: Comments: Coarse scattered rhonchi bilaterally. Tachypnea Gastrointestinal: Gastrointestinal: Reports no additional gastrointestinal complaints Musculoskeletal: Musculoskeletal: Reports no additional musculoskeletal complaints Integumentary/Breasts: Skin/Breast: Reports system reviewed and no additional complaints, except as docu Neurologic: Reports system reviewed and no additional complaints, except as documented Psychiatric: Psychiatric: Reports no additional psychiatric complaints Endocrine: Endocrine: Reports no additional endocrine complaints Hematologic/Lymphatic: Hematologic/Lymphatic: Reports no additional hematologic/lymphatic complaints Allergic/Immunologic: Allergic/Immunologic: Reports no additional allergic/immunologic complaints PMFSH Past Medical History Medical History Essential hypertension MARIA E (generalized anxiety disorder) Surgical History Surgical History H/O cardiac radiofrequency ablation H/O colonoscopy with polypectomy H/O: hysterectomy Hx of cholecystectomy Family History Family History Father Hypertension Carcinoma of colon Mother Hypertension Social History Social History Social History: 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 Typically she was smoke about a pack in a week. Socially drinks alcohol no marijuana or illicit drugs. Her is a durable power commercial litigation attorney for healthcare. The patient desires to be a full code. Smoking status: Never smoker Alcohol intake: current Drinks per week: 1 Substance use: never Substance use type: does not use Gender identity (if verbalized by the patient): Female Sexual Orientation (if Verbalized by the Patient): Straight or Heterosexual Spiritual care concerns: No Meds Home Medications and Allergies Home Medications Medication Instructions Recorded Confirmed Type fluconazole 150 mg tablet 150 mg PO ONCE #2 tablet 07/25/2010/23
[2020-11-01 21:06] LABS: Vancomycin Trough 12.4 ug/mL (10.0-20.0)
[2020-11-02] VITALS (24 sets, daily range): BP systolic 90–127; BP diastolic 54–74; PULSE 57–113; RESP 18–33; TEMP 36.1–37.4; O2SAT 89–96
[2020-11-02] MEDS: IPRATROPIUM BR 0.02% INH SOLN 0.5 MG/2.5 ML VIAL INHALATION ×4 (01:47→20:10)
[2020-11-02] MEDS: ALBUTEROL SULFATE NEB 2.5 MG/0.5 ML INH INHALATION ×4 (01:47→20:10)
[2020-11-02] MEDS: CENTRAL LINE FLUSH 10 ML IV PUSH ×3 (06:16→20:49)
[2020-11-02] MEDS: guaiFENesin 12 HR 600 MG TABCR PO (08:08)
[2020-11-02] MEDS: LORATADINE 10 MG TABLET PO (08:08)
[2020-11-02] MEDS: FAMOTIDINE 20 MG TABLET PO ×2 (08:08→17:27)
[2020-11-02] MEDS: SERTRALINE HCL 50 MG TABLET BY MOUTH (08:08)
[2020-11-02] MEDS: ENOXAPARIN 40 MG/0.4 ML SYRINGE SUB-Q ×2 (08:08→20:47)
--- NOTE | 2020-11-02 09:42 | PM.IMPN ---
Progress Note: A&P Assessment and Plan (1) Acute respiratory failure with hypoxia: Code(s): J96.01 - Acute respiratory failure with hypoxia Status: Acute Assessment and Plan: Secondary to COVID-19 pneumonia. Chest CTA negative for PE. Oxygen requirements continue to increase and she is currently requiring 15 L per high-flow nasal cannula with non-rebreather. Continue supplemental oxygen as needed, wean as tolerated. Will consider BiPAP or Airvo if unable to maintain adequate O2 sats. Given continued increase, will proceed with transfer to IMU pending bed availability RT to assess and treat Continue treatment of COVID-19 as below (2) COVID-19: Code(s): U07.1 - COVID-19 Status: Acute Assessment and Plan: She tested positive for COVID-19 10/16/20. She noticed shortness of breath worsening within the past week prior to admission. CXR showed patchy bilateral airspace opacities consistent with COVID-19 pneumonia. Oxygen requirements increased and she is on 15 L HFNC w nonrebreather as above. Plan to continue dexamethasone (day 05/16, initiated 10/23/20). She completed remdesivir on 10/27/20. Convalescent plasma administered 10/28/2020 Continue incentive spirometry Continue supportive care to include mucinex, scheduled albuterol via MDI, and acetaminophen prn Trend acute phase reactants Encourage prone positioning Continue supplemental oxygen as needed to maintain oxygen saturation >90% Continue isolation precautions (3) MARIA E (generalized anxiety disorder): Code(s): F41.1 - Generalized anxiety disorder Status: Acute Assessment and Plan: Mood is stable. She is anxious and worried about her medical condition which is understandable given her circumstances Continue sertraline I spoke with the patient for quite some time and provided reassurance and answered all of her questions. This seemed to help her. (4) Essential hypertension: Code(s): I10 - Essential (primary) hypertension Status: Chronic Assessment and Plan: Blood pressures are reasonable. BP evaluated today and stable at 135/76. Telmisartan-HCTZ is on hold. Continue to monitor (5) Mediastinal mass: Code(s): J98.59 - Other diseases of mediastinum, not elsewhere classified Status: Acute Assessment and Plan: Chest CTA showed anterior mediastinal mass measuring 4.6x3.0cm with differential to include thymoma, thymic carcinoma, and lymphadenopathy. Discussed with the patient and she will need referral to cardiothoracic surgery once she is discharged for histologic confirmation Previous provider discussed with Kacey at Dr. Shaffer's office regarding the need for referral on 10/27/20. (6) Leukocytosis: Code(s): D72.829 - Elevated white blood cell count, unspecified Status: Acute Assessment and Plan: Continues to increase. She remains afebrile. May be secondary to steroid therapy. Given duration of symptoms, secondary bacterial pneumonia is considered. UA is not concerning for infection. Blood cultures are negative. Continue to monitor CBC daily IV Zosyn and Ceftriaxone for empiric coverage was initiated on 10/28 due to concerns for secondary bacterial pneumonia. Will evaluate repeat CXR. Will attempt collection of sputum culture although patient denies productive cough. Additional Plan Case was discussed with patient and the nursing staff in detail. Will consult pulmonary and get the opinion about further management of the patient. If the condition does not improve might have to intubate patient. Patient agrees with current plan of care and treatment. Consults noted. Will continue current plan of care and treatment. Subjective Date/time seen: 11/02/20 09:42 Interval history: Patient was seen during the morning rounds. Mild shortness of breath no chest pain. Requiring high oxygen flow. No abdominal pain nausea vomiting or di
[2020-11-02] MEDS: methylPREDNISolone SOD SUCC 40 MG VIAL IV PUSH ×2 (10:53→20:48)
--- NOTE | 2020-11-02 11:19 | PM.PNPUL ---
Progress Note: A&P Additional Plan Severe hypoxia associated with COVID infection. I asked her to use BiPAP tonight if she can tolerate it. Time Spent With Patient Time with patient: 25 - 35 minutes Subjective Date/time seen: Staff insists she wore BiPAP last night but she insists that she did not and that she has not worn it since she was in the ER. Dexamethasone ended -IA resumed steroid Rx with Solu-Medrol 40 mg IV q.12h. Feels much the same. Exam Narrative: Exam Narrative: Breathing comfortably. Chest sounds personally clear. Heart sounds regular. No neck adenopathy. Objective Data Vital Signs Vital Signs: Vital Signs - 24 hr 11/01/20 12:00 11/01/20 14:00 11/01/20 14:15 Temperature 36.3 C L Pulse Rate 72 69 64 Respiratory Rate 20 45 H Blood Pressure 123/72 Pulse Oximetry 91 91 11/01/20 14:20 11/01/20 14:35 11/01/20 15:24 Temperature Pulse Rate 65 67 Respiratory Rate 45 H 30 H Blood Pressure Pulse Oximetry 94 11/01/20 16:00 11/01/20 17:20 11/01/20 18:00 Temperature 36.7 C Pulse Rate 66 64 73 Respiratory Rate 22 H 33 H Blood Pressure 131/74 Pulse Oximetry 90 92 11/01/20 20:00 11/01/20 20:36 11/01/20 20:47 Temperature 37.1 C Pulse Rate 71 68 69 Respiratory Rate 24 H 24 H 22 H Blood Pressure 113/69 Pulse Oximetry 92 94 11/01/20 22:00 11/01/20 23:21 11/01/20 23:44 Temperature 36.9 C Pulse Rate 63 73 76 Respiratory Rate 30 H 36 H Blood Pressure 143/67 H Pulse Oximetry 96 97 11/02/20 00:00 11/02/20 01:47 11/02/20 01:50 Temperature Pulse Rate 57 L 79 79 Respiratory Rate 28 H 28 H Blood Pressure Pulse Oximetry 96 96 11/02/20 02:00 11/02/20 02:02 11/02/20 04:00 Temperature 36.1 C L Pulse Rate 57 L 85 59 L Respiratory Rate 30 H 33 H Blood Pressure 122/74 Pulse Oximetry 91 11/02/20 07:23 11/02/20 08:00 11/02/20 10:00 Temperature 36.6 C Pulse Rate 70 64 85 Respiratory Rate 32 H Blood Pressure 127/68 Pulse Oximetry 92 92 Intake/Output Intake/Output: Intake & Output 10/30/20 10/31/20 11/01/20 11/02/20 23:59 23:59 23:59 23:59 Intake Total 1410 3070 2380 250 Output Total 1175 1050 1725 900 Balance 235 2020 655 -650 Meds/Results Medications: Active Medications Generic Name Dose Route Start Last Admin Trade Name Freq PRN Reason Stop Dose Admin Acetaminophen 650 mg 10/23/20 13:56 10/23/20 15:17 Acetaminophen 325 Mg Tablet PO 650 mg Q4H PRN Administration Headache Albuterol 2.5 mg 10/30/20 14:00 11/02/20 08:36 Albuterol Sulfate Neb 2.5 Mg/0.5 Ml Inh INHALATION 2.5 mg Q6HRT WILLIE Administration Enoxaparin Sodium 40 mg 10/24/20 21:00 11/02/20 08:08 Enoxaparin 40 Mg/0.4 Ml Syringe SUB-Q 40 mg Q12HR WILLIE Administration Famotidine 20 mg 10/23/20 17:00 11/02/20 08:08 Famotidine 20 Mg Tablet PO 20 mg BID WILLIE Administration Guaifenesin 600 mg 10/28/20 21:00 11/02/20 08:08 Guaifenesin 12 Hr 600 Mg Tabcr PO 600 mg Q12HR WILLIE Administration Ceftriaxone Sodium/Dextrose 1 gm in 50 mls @ 100 mls/hr 10/28/20 09:00 11/02/20 08:08 Rocephin 1 Gm/D5w 50 Ml IVPB 100 mls/hr DAILY WILLIE Administration Vancomycin HCl 1,500 mg in 500 mls @ 333.333 mls/hr 10/28/20 09:00 11/02/20 08:08 Vancomycin 1,500 Mg/D5w 500 Ml IVPB 333.33 mls/hr Q12H WILLIE Administration Ipratropium [place] 0.5 mg 10/30/20 14:00 11/02/20 08:36 Ipratropium Br 0.02% Inh Soln 0.5 Mg/2.5 Ml Vial INHALATION 0.5 mg Q6HRT WILLIE Administration Loratadine 10 mg 10/23/20 16:55 11/02/20 08:08 Loratadine 10 Mg Tablet PO 10 mg DAILY PRN Administration allergy symptoms Methylprednisolone Sodium Succinate 40 mg 11/02/20 10:10 11/02/20 10:53 Methylprednisolone Sod Succ 40 Mg Vial IV PUSH 40 mg Q12HR WILLIE Administration Sertraline HCl 50 mg 10/24/20 09:00 11/02/20 08:08 Sertraline Hcl 50 Mg Tablet BY MOUTH 50 mg DAILY WILLIE Administration Sodi
[2020-11-02 17:07] LABS: Alanine Aminotransferase 30 U/L (4-35); Albumin Level 2.8 g/dL (3.5-5.1); Alkaline Phosphatase 89 U/L (38-126); Anion Gap 1 mmol/L (8-16); Aspartate Amino Transferase 42 U/L (14-36); Bilirubin,Total 0.3 mg/dL (0.2-1.3); Blood Urea Nitrogen 20 mg/dL (7-17); Calcium 8.1 mg/dL (8.4-10.2); Carbon Dioxide 33 mmol/L (22-30); Chloride 103 mmol/L (98-107); Estimated CRCL calculation 91 ml/min; Estimated Glomerular Filt Rate > 60; Glucose 145 mg/dL (65-105); Magnesium 2.2 mg/dL (1.6-2.3); Potassium 4.4 mmol/L (3.4-5.0); Sodium 137 mmol/L (137-145)
[2020-11-02 17:38] LABS: Troponin I 0.049 ng/mL (0.000-0.034)
[2020-11-03] VITALS (25 sets, daily range): BP systolic 102–134; BP diastolic 66–76; PULSE 53–83; RESP 20–24; TEMP 35.9–36.9; O2SAT 85–95
--- NOTE | 2020-11-03 | ECHO_ITS ---
Patient Info Name: Natasha Hogan Age: 60 years : 1960 Gender: Female Ht: 64 in Wt: 238 lbs BSA: 2.26 m2 HR: 71 bpm BP: 121 / 70 mmHg Technical Quality: Fair Exam Date: 11/03/2020 12:26 PM Exam Location: [facility] Patient Status: Inpatient Admit Date: 10/24/2020 Staff Ordering Physician: Iron Rosario MD Agency Operator: Bety Jennings RDCS Attending Provider: Christine Mckeon PA-C Referring Physician: Abraham MCNAMARA; Exam Type: CA echo doppler color flow Study Info Indications - covid pneumonia - nsvt 10 beats Complete two-dimensional, color flow and Doppler transthoracic echocardiogram is performed. Summary 1. Complete two-dimensional, color flow and Doppler transthoracic echocardiogram is performed. 2. Left ventricular systolic function is hyperdynamic, estimated at >70%. 3. Aortic valve leaflets are mildly thickened with no restricted motion. 4. There is no aortic valve stenosis. 5. There is no mitral valve regurgitation. 6. There is no tricuspid valve regurgitation. 7. Unable to assess pulmonary arterial systolic pressure due to poor TR envelope. 8. Normal inferior vena cava with >50% collapse upon inspiration. 9. There is no pericardial effusion. Left Ventricle Left ventricular systolic function is hyperdynamic, estimated at >70%. The left ventricular diastolic function is grade I diastolic dysfunction. Left ventricular chamber dimension is normal. There is no increased left ventricular wall thickness. Left ventricular septal wall motion is normal. Right Ventricle Right ventricular chamber dimension is normal. Right ventricular systolic function is normal. Left Atria Left atrial chamber dimension is normal. Right Atria Right atrial chamber dimension is normal. Aortic Valve Aortic valve leaflets are mildly thickened with no restricted motion. The aortic valve is trileaflet. There is no aortic valve stenosis. There is no aortic valve regurgitation. Pulmonic Valve The pulmonic valve is normal. There is no pulmonic valve stenosis. There is no pulmonic regurgitation. Mitral Valve The mitral valve has normal leaflets. There is no mitral valve stenosis. There is no mitral valve regurgitation. Tricuspid Valve The tricuspid valve leaflets are normal. There is no significant tricuspid valve stenosis. There is no tricuspid valve regurgitation. Unable to assess pulmonary arterial systolic pressure due to poor TR envelope. Pericardium/Pleural The pericardium appears normal. There is no pericardial effusion. Inferior Vena Cava Normal inferior vena cava with >50% collapse upon inspiration. Aorta The aortic root size at the sinus of Valsalva is normal. The prox ascending aorta size is normal. Left Ventricular Outflow Tract Name Value Normal LVOT 2D LVOT Diameter 2.0 cm Pulmonic Valve Name Value Normal RVOT Doppler RVOT Peak Gradient 3 mmHg
[2020-11-03] MEDS: IPRATROPIUM BR 0.02% INH SOLN 0.5 MG/2.5 ML VIAL INHALATION ×4 (02:03→21:11)
[2020-11-03] MEDS: ALBUTEROL SULFATE NEB 2.5 MG/0.5 ML INH INHALATION ×4 (02:03→21:11)
[2020-11-03 05:23] LABS: Hematocrit 37.6 % (37.0-47.0); Hemoglobin 12.4 g/dL (12.0-15.0); Mean Corpuscular Hemoglobin 28.5 pg (26-34); Mean Corpuscular Volume 86.4 fl (80-100); Mean Platelet Volume 9.8 fl (7.4-10.4); Platelet Count Result 354 k/mm3 (150-375); Red Blood Count 4.35 M/mm3 (4.2-5.4); Red Cell Distribution Width 11.9 % (11.5-14.5)
[2020-11-03 05:38] LABS: Alanine Aminotransferase 27 U/L (4-35); Albumin Level 2.9 g/dL (3.5-5.1); Alkaline Phosphatase 81 U/L (38-126); Anion Gap 4 mmol/L (8-16); Aspartate Amino Transferase 30 U/L (14-36); Bilirubin,Total 0.4 mg/dL (0.2-1.3); Blood Urea Nitrogen 20 mg/dL (7-17); Calcium 8.6 mg/dL (8.4-10.2); Carbon Dioxide 31 mmol/L (22-30); Chloride 104 mmol/L (98-107); Estimated CRCL calculation 104 ml/min; Estimated Glomerular Filt Rate > 60; Glucose 123 mg/dL (65-105); Potassium 4.5 mmol/L (3.4-5.0); Sodium 139 mmol/L (137-145)
[2020-11-03 05:48] LABS: Troponin I 0.019 ng/mL (0.000-0.034)
[2020-11-03] MEDS: CENTRAL LINE FLUSH 10 ML IV PUSH ×3 (06:17→21:02)
[2020-11-03] MEDS: FAMOTIDINE 20 MG TABLET PO ×2 (08:39→17:20)
[2020-11-03] MEDS: methylPREDNISolone SOD SUCC 40 MG VIAL IV PUSH ×2 (08:39→21:01)
[2020-11-03] MEDS: ENOXAPARIN 40 MG/0.4 ML SYRINGE SUB-Q (08:39)
--- NOTE | 2020-11-03 08:44 | PM.IMPN ---
Progress Note: A&P Assessment and Plan (1) Acute respiratory failure with hypoxia: Code(s): J96.01 - Acute respiratory failure with hypoxia Status: Acute Assessment and Plan: Secondary to COVID-19 pneumonia. Chest CTA negative for PE. Oxygen requirements continue to increase and she is currently requiring 15 L per high-flow nasal cannula with non-rebreather. Continue supplemental oxygen. Continue treatment of COVID-19 as below (2) COVID-19: Code(s): U07.1 - COVID-19 Status: Acute Assessment and Plan: She tested positive for COVID-19 10/16/20. She noticed shortness of breath worsening within the past week prior to admission. CXR showed patchy bilateral airspace opacities consistent with COVID-19 pneumonia. Oxygen requirements increased and she is on 15 L HFNC w nonrebreather as above. Plan to continue steroids.. She completed remdesivir on 10/27/20. Convalescent plasma administered 10/28/2020 Continue incentive spirometry Continue supportive care to include mucinex, scheduled albuterol via MDI, and acetaminophen prn Encourage prone positioning Continue supplemental oxygen as needed to maintain oxygen saturation >90% Continue isolation precautions (3) MARIA E (generalized anxiety disorder): Code(s): F41.1 - Generalized anxiety disorder Status: Acute Assessment and Plan: Mood is stable. (4) Essential hypertension: Code(s): I10 - Essential (primary) hypertension Status: Chronic Assessment and Plan: Blood pressures are reasonable. BP evaluated today and stable. Telmisartan-HCTZ is on hold. Continue to monitor (5) Mediastinal mass: Code(s): J98.59 - Other diseases of mediastinum, not elsewhere classified Status: Acute Assessment and Plan: Chest CTA showed anterior mediastinal mass measuring 4.6x3.0cm with differential to include thymoma, thymic carcinoma, and lymphadenopathy. Discussed with the patient and she will need referral to cardiothoracic surgery once she is discharged for histologic confirmation Previous provider discussed with Kacey at Dr. Shaffer's office regarding the need for referral on 10/27/20. (6) Leukocytosis: Code(s): D72.829 - Elevated white blood cell count, unspecified Status: Acute Assessment and Plan: Continues to antibiotics. Additional Plan Case was discussed with patient and the nursing staff in detail. Will consult pulmonary and get the opinion about further management of the patient. If the condition does not improve might have to intubate patient. Patient agrees with current plan of care and treatment. Consults noted. Will continue current plan of care and treatment. Subjective Date/time seen: 11/03/20 08:44 Interval history: Patient was seen during the morning rounds. Mild shortness of breath no chest pain. Requiring high oxygen flow. No abdominal pain nausea vomiting or diarrhea. Mood stable. Review of Systems Review of Systems: All systems reviewed & are unremarkable except as noted in HPI and below Constitutional: Constitutional: Reports as per HPI and Reports no additional constitutional complaints Eyes: Eyes: Reports as per HPI and Reports no additional eye complaints ENT: Reports system reviewed and no additional complaints, except as documented and Reports Normal hearing present Cardiovascular: Cardiovascular: Reports no additional cardiovascular complaints Respiratory: Respiratory: Reports no additional respiratory complaints and Reports no additional respiratory complaints Gastrointestinal: Gastrointestinal: Reports as per HPI and Reports no additional gastrointestinal complaints Musculoskeletal: Musculoskeletal: Reports no additional musculoskeletal complaints Integumentary/Breasts: Skin/Breast: Reports system reviewed and no additional complaints, except as docu and Reports as per HPI Neurologic: Reports system reviewed a
--- NOTE | 2020-11-03 09:16 | PM.CNCAR ---
Assessment and Plan Assessment and plan (1) Mediastinal mass: Code(s): J98.59 - Other diseases of mediastinum, not elsewhere classified Status: Acute Assessment and Plan: Patient is a 60-year-old white woman with history of radiofrequency ablation for tachycardia approximately 20 years ago at [facility] (records pending), hypertension, tobacco dependence (quit 2 weeks ago), obesity, generalized anxiety disorder, who is seen in cardiac consultation for a [id number] myocardial infarction and nonsustained ventricular tachycardia in the setting of COVID-19 pneumonia. -CTA of the chest demonstrated anterior mediastinal mass measuring 4.6 x 3.0 cm with differential to include thymoma, thymic carcinoma, and lymphadenopathy, with plans for outpatient Cardiothoracic surgery consultation for histologic confirmation pending recovery from her current pneumonia. (2) NSTEMI (non-ST elevated myocardial infarction): Code(s): I21.4 - Non-ST elevation (NSTEMI) myocardial infarction Status: Acute Assessment and Plan: -she had non ST elevation myocardial infarction with minimal troponin elevation in the setting of her progressive hypoxemia with COVID-19 pneumonia, and this likely reflects a type II myocardial infarction. -This admission, she was noted to have troponin elevation on 11/02/2020 of 0.049, mildly increased over the upper limit of normal. She subsequently had normalization of her troponin I on 11/03/2020 with troponin I of 0.019. -patient denies chest pain and repeat EKG pending. -obtain echo to evaluate cardiac structure and function. -began aspirin. -increased enoxaparin to therapeutic dosing for 24-48 hours in setting of non ST elevation myocardial infarction and COVID-19 pneumonia. -CTA of the chest demonstrated mild coronary arterial calcifications and she will need eventual outpatient nuclear stress testing versus left heart catheterization pending resolution of her COVID-19 pneumonia. CTA of the chest was negative for pulmonary embolism. (3) NSVT (nonsustained ventricular tachycardia): Code(s): I47.2 - Ventricular tachycardia Status: Acute Assessment and Plan: -She had 10 beat, 4 beat, 3 beat, and 3 beat runs of nonsustained ventricular tachycardia on 11/02/2020, in setting of non ST elevation myocardial infarction with minimal troponin elevation with persistent and progressive hypoxemia with COVID-19 pneumonia. -she had normal potassium and magnesium levels and will repeat potassium and magnesium levels. -she had normal free T4 early this admission. -continue to monitor on telemetry. -obtain echo to evaluate cardiac structure and function. (4) Pneumonia due to COVID-19 virus: Code(s): U07.1 - COVID-19; J12.89 - Other viral pneumonia Status: Acute Assessment and Plan: -she has persistent and progressive hypoxemia despite prior and current therapy for COVID-19 pneumonia. -management as per primary, infectious disease, and Pulmonary Services. -currently on high-flow oxygen. (5) Essential hypertension: Code(s): I10 - Essential (primary) hypertension Status: Chronic Assessment and Plan: -blood pressure is well controlled and will continue to monitor on current regimen. History of Present Illness History of Present Illness Consult date/time: 11/03/20 09:16 Patient is a 60-year-old white woman with history of radiofrequency ablation for tachycardia approximately 20 years ago at [facility] (records pending), hypertension, tobacco dependence (quit 2 weeks ago), obesity, generalized anxiety disorder, who is seen in cardiac consultation for a [id number] myocardial infarction and nonsustained ventricular tachycardia in the setting of COVID-19 pneumonia. This admission, she was noted to have troponin elevation on 11/02/2020 of 0.049, mildly increased over the upper limit of normal. She subsequently had normalization of her tro
--- NOTE | 2020-11-03 09:31 | ECG_ITS ---
Measurements Intervals [place] Rate: 76 P: 20 MD: 127 QRS: -16 QRSD: 84 T: -26 QT: 365 QTc: 411 Interpretive Statements SINUS RHYTHM DELAYED PRECORDIAL R/S TRANSITION BORDERLINE T WAVE ABNORMALITY- ANT/INF LEADS BORDERLINE ECG Electronically Signed On 11-03-2020 14:16:36 AIRPORT SCREENER by Jb Fairchild D.O.
--- NOTE | 2020-11-03 09:38 | PM.PNPUL ---
Progress Note: A&P Additional Plan COVID -related ARDS. She is severely ill but remains stable. I would favor re-attempt thing nocturnal BiPAP use. Time Spent With Patient Time with patient: 25 - 35 minutes Subjective Date/time seen: 11/03/20 09:38 Interval about her situation -discussed. She now says she did use BiPAP night before last but not last night (!) . Just had new CXR -by report that is stable. Exam Narrative: Exam Narrative: Chest sounds clear. Heart sounds regular. Objective Data Vital Signs Vital Signs: Vital Signs - 24 hr 11/02/20 10:00 11/02/20 11:13 11/02/20 11:29 Temperature 36.7 C Pulse Rate 85 113 H Respiratory Rate 32 H Blood Pressure 90/54 L Pulse Oximetry 91 92 11/02/20 12:00 11/02/20 14:00 11/02/20 14:43 Temperature Pulse Rate 75 83 73 Respiratory Rate 20 Blood Pressure Pulse Oximetry 93 11/02/20 14:53 11/02/20 16:00 11/02/20 16:07 Temperature 37.4 C Pulse Rate 74 74 75 Respiratory Rate 20 28 H Blood Pressure 99/62 L Pulse Oximetry 92 92 11/02/20 17:59 11/02/20 20:00 11/02/20 20:10 Temperature 36.6 C Pulse Rate 80 63 81 Respiratory Rate 22 H 24 H Blood Pressure 106/59 L Pulse Oximetry 91 91 11/02/20 20:23 11/02/20 22:00 11/03/20 00:00 Temperature 35.9 C L Pulse Rate 76 57 L 55 L Respiratory Rate 22 H 24 H Blood Pressure 123/76 Pulse Oximetry 92 11/03/20 02:00 11/03/20 02:04 11/03/20 02:20 Temperature Pulse Rate 57 L 59 L 62 Respiratory Rate 20 20 Blood Pressure Pulse Oximetry 11/03/20 04:00 11/03/20 06:00 11/03/20 08:00 Temperature 36.3 C L 36.6 C Pulse Rate 62 66 67 Respiratory Rate 24 H 24 H Blood Pressure 102/66 121/70 Pulse Oximetry 85 L 89 L Intake/Output Intake/Output: Intake & Output 10/31/20 11/01/20 11/02/20 11/03/20 23:59 23:59 23:59 23:59 Intake Total 3070 2380 1860 390 Output Total 1050 1725 1700 1000 Balance 2019 650 624 -624 Meds/Results Medications: Active Medications Generic Name Dose Route Start Last Admin Trade Name Freq PRN Reason Stop Dose Admin Acetaminophen 650 mg 10/23/20 13:56 10/23/20 15:17 Acetaminophen 325 Mg Tablet PO 650 mg Q4H PRN Administration Headache Albuterol 2.5 mg 10/30/20 14:00 11/03/20 08:40 Albuterol Sulfate Neb 2.5 Mg/0.5 Ml Inh INHALATION 2.5 mg Q6HRT WILLIE Administration Enoxaparin Sodium 40 mg 10/24/20 21:00 11/03/20 08:39 Enoxaparin 40 Mg/0.4 Ml Syringe SUB-Q 40 mg Q12HR WILLIE Administration Famotidine 20 mg 10/23/20 17:00 11/03/20 08:39 Famotidine 20 Mg Tablet PO 20 mg BID WILLIE Administration Ceftriaxone Sodium/Dextrose 1 gm in 50 mls @ 100 mls/hr 10/28/20 09:00 11/03/20 09:23 Rocephin 1 Gm/D5w 50 Ml IVPB Infused DAILY WILLIE Infusion Azithromycin 250 mg/ Dextrose 250 mls @ 250 mls/hr 11/03/20 09:00 IVPB Q24H WILLIE Ipratropium [place] 0.5 mg 10/30/20 14:00 11/03/20 08:40 Ipratropium Br 0.02% Inh Soln 0.5 Mg/2.5 Ml Vial INHALATION 0.5 mg Q6HRT WILLIE Administration Methylprednisolone Sodium Succinate 40 mg 11/02/20 10:10 11/03/20 08:39 Methylprednisolone Sod Succ 40 Mg Vial IV PUSH 40 mg Q12HR WILLIE Administration Sodium Chloride 10 ml 11/02/20 06:00 11/03/20 06:17 Central Line Flush IV PUSH 10 ml Q8HR WILLIE Administration Sodium Chloride 10 ml 11/01/20 22:01 Central Line Flush IV PUSH PRN PRN with TPN bag changes Sodium Chloride 20 ml 11/01/20 22:01 Central Line Flush IV PUSH PRN PRN after blood draws Radiology Results: ITS Impressions Chest X-Ray 11/03/20 06:51 IMPRESSION: 1. No significant interval change in diffuse bilateral lung disease consistent with pneumonia and/or pulmonary edema. Labs Labs: Laboratory Results - last 24 hr 11/02/20 11/02/20 11/03/20 16:45 16:47 05:17 WBC 20.0 H RBC 4.35 Hgb 12.4 Hct 37.6 MCV 86.4 MCH 28.5 MCHC 33.0 RDW
[2020-11-03] MEDS: ASPIRIN 81 MG CHEWABLE TABLET 324 MG PO (10:55)
[2020-11-03] MEDS: ENOXAPARIN 80 MG/0.8 ML SYRINGE 70 MG SUB-Q (12:15)
[2020-11-03] MEDS: PHARMACIST COMMUNICATION ORDER 1 EACH XX (12:21)
--- NOTE | 2020-11-03 12:47 | WPDINFPN2 ---
Progress Note: A&P Assessment and Plan (1) Pneumonia due to COVID-19 virus: Code(s): U07.1 - COVID-19; J12.89 - Other viral pneumonia Status: Acute Assessment and Plan: 1. Viral pneumonia due to acute CoVid 19 infection, still symptomatic 2. Leukocytosis due to # 1 and due to steroids, very low likelihood of superinfection. She has received a week of Iv antibiotics for that possibility, without substantial improvement. REC Stop empiric antibacterials. She has received appropriate therapy for #1. Supportive care. Steroid treatment per Pulmonary. Will see prn. Subjective Date/time seen: 11/03/20 12:47 Interval history: occasional clear sputum. Dyspnea as before. Exam Narrative: Exam Narrative: afebrile Const: General: no acute distress Eyes: General: appearance normal, both eyes and all related structures Resp: Effort & Inspection: abnormal respiratory effort Auscultation: clear to auscultation bilaterally and diminished lung sounds Cardio: Rate: regular rate Rhythm: regular rhythm Heart sounds: no gallops and no murmurs GI: GI Palp: Yes Soft to palpation, No Tenderness to palpation present (GI) and No Guarding due to palpation present (GI) Skin: General skin exam: no rashes or lesions noted Objective Data Vital Signs Vital Signs: Vital Signs - 24 hr 11/02/20 14:00 11/02/20 14:43 11/02/20 14:53 Temperature Pulse Rate 83 73 74 Respiratory Rate 20 20 Blood Pressure Pulse Oximetry 93 11/02/20 16:00 11/02/20 16:07 11/02/20 17:59 Temperature 37.4 C Pulse Rate 74 75 80 Respiratory Rate 28 H Blood Pressure 99/62 L Pulse Oximetry 92 92 11/02/20 20:00 11/02/20 20:10 11/02/20 20:23 Temperature 36.6 C Pulse Rate 63 81 76 Respiratory Rate 22 H 24 H 22 H Blood Pressure 106/59 L Pulse Oximetry 91 91 11/02/20 22:00 11/03/20 00:00 11/03/20 02:00 Temperature 35.9 C L Pulse Rate 57 L 55 L 57 L Respiratory Rate 24 H Blood Pressure 123/76 Pulse Oximetry 92 11/03/20 02:04 11/03/20 02:20 11/03/20 04:00 Temperature 36.3 C L Pulse Rate 59 L 62 62 Respiratory Rate 20 20 24 H Blood Pressure 102/66 Pulse Oximetry 85 L 11/03/20 06:00 11/03/20 08:00 11/03/20 08:30 Temperature 36.6 C Pulse Rate 66 67 60 Respiratory Rate 24 H 20 Blood Pressure 121/70 Pulse Oximetry 89 L 11/03/20 08:40 11/03/20 10:00 11/03/20 12:00 Temperature Pulse Rate 83 71 62 Respiratory Rate 20 24 H Blood Pressure Pulse Oximetry 92 89 L Intake/Output Intake/Output: Intake & Output 10/31/20 11/01/20 11/02/20 11/03/20 23:59 23:59 23:59 23:59 Intake Total 3070 2380 1860 640 Output Total 1050 1725 1700 1000 Balance 2019 655 160 -360 Meds/Results Medications: Active Medications Generic Name Dose Route Start Last Admin Trade Name Freq PRN Reason Stop Dose Admin Acetaminophen 650 mg 10/23/20 13:56 10/23/20 15:17 Acetaminophen 325 Mg Tablet PO 650 mg Q4H PRN Administration Headache Albuterol 2.5 mg 10/30/20 14:00 11/03/20 08:40 Albuterol Sulfate Neb 2.5 Mg/0.5 Ml Inh INHALATION 2.5 mg Q6HRT WILLIE Administration Aspirin 81 mg 11/04/20 09:00 Aspirin 81 Mg Enteric Tablet PO QAM WILLIE Atorvastatin Calcium 80 mg 11/03/20 21:00 Atorvastatin 40 Mg Tablet PO Q24H WILLIE Enoxaparin Sodium 110 mg 11/03/20 21:00 Enoxaparin 120 Mg/0.8 Ml Syringe SUB-Q Q12HR WILLIE Famotidine 20 mg 10/23/20 17:00 11/03/20 08:39 Famotidine 20 Mg Tablet PO 20 mg BID WILLIE Administration Ceftriaxone Sodium/Dextrose 1 gm in 50 mls @ 100 mls/hr 10/28/20 09:00 11/03/20 09:23 Rocephin 1 Gm/D5w 50 Ml IVPB Infused DAILY WILLIE Infusion Azithromycin 250 mg/ Dextrose 250 mls @ 250 mls/hr 11/03/20 09:00 11/03/20 10:54 IVPB Infused Q24H WILLIE Infusion Ipratropium [place] 0.5 mg 10/30/20 14:00 11/03/20 08:40 Ipratropium Br 0.02% Inh Soln 0.5 Mg/2.5 Ml Vial INHALATION 0.5 mg Q6HRT WILLIE Adm
[2020-11-03] MEDS: ATORVASTATIN 40 MG TABLET 80 MG PO (21:01)
[2020-11-03] MEDS: ENOXAPARIN 120 MG/0.8 ML SYRINGE 110 MG SUB-Q (21:02)
[2020-11-04] VITALS (23 sets, daily range): BP systolic 109–128; BP diastolic 60–89; PULSE 55–97; RESP 16–24; TEMP 36.1–36.8; O2SAT 90–94
[2020-11-04] MEDS: ALBUTEROL SULFATE NEB 2.5 MG/0.5 ML INH INHALATION ×4 (03:41→20:20)
[2020-11-04] MEDS: IPRATROPIUM BR 0.02% INH SOLN 0.5 MG/2.5 ML VIAL INHALATION ×4 (03:42→20:20)
[2020-11-04 04:58] LABS: Basophils Percent Auto 0.1 % (0.2-1.2); Hematocrit 37.6 % (37.0-47.0); Hemoglobin 12.5 g/dL (12.0-15.0); Immature Granulocyte Absolute 0.25 K/mm3 (0.00-0.031); Immature Granulocyte Percent A 1.2 % (0-0.5); Lymphocytes Absolute Auto 0.95 K/mm3 (0.9-3.2); Lymphocytes Percent Auto 4.4 % (18.3-44.2); Mean Corpuscular HGB Conc 33.2 g/dl (32-36); Mean Corpuscular Hemoglobin 28.6 pg (26-34); Mean Platelet Volume 9.9 fl (7.4-10.4); Monocytes Absolute Auto 0.9 K/mm3 (0.1-0.6); Monocytes Percent Auto 4.2 % (2.6-8.5); Neutrophils Absolute Auto 19.4 K/mm3 (1.3-6.7); Neutrophils Percent Auto 90.1 % (45.5-73.1); Platelet Count Result 357 k/mm3 (150-375); Red Blood Count 4.37 M/mm3 (4.2-5.4); Red Cell Distribution Width 11.9 % (11.5-14.5); White Blood Count 21.5 K/mm3 (4.5-10.0)
[2020-11-04 05:12] LABS: Anion Gap 2 mmol/L (8-16); Blood Urea Nitrogen 20 mg/dL (7-17); Calcium 8.5 mg/dL (8.4-10.2); Carbon Dioxide 32 mmol/L (22-30); Chloride 103 mmol/L (98-107); Cholesterol 140 mg/dL (0-200); Estimated CRCL calculation 91 ml/min; Estimated Glomerular Filt Rate > 60; Glucose 123 mg/dL (65-105); HDL Direct 29 mg/dL; Magnesium 2.3 mg/dL (1.6-2.3); Potassium 4.6 mmol/L (3.4-5.0); Sodium 137 mmol/L (137-145); Triglycerides 131 mg/dL (<150)
[2020-11-04 05:23] LABS: LDL Cholesterol Direct 90 mg/dL
[2020-11-04] MEDS: CENTRAL LINE FLUSH 10 ML IV PUSH ×3 (06:28→20:58)
[2020-11-04] MEDS: FAMOTIDINE 20 MG TABLET PO ×2 (09:20→18:10)
[2020-11-04] MEDS: ENOXAPARIN 120 MG/0.8 ML SYRINGE 110 MG SUB-Q ×2 (09:20→20:58)
[2020-11-04] MEDS: ASPIRIN 81 MG ENTERIC TABLET PO (09:20)
[2020-11-04] MEDS: methylPREDNISolone SOD SUCC 40 MG VIAL IV PUSH ×2 (09:20→20:58)
--- NOTE | 2020-11-04 09:46 | PM.PNCARD ---
Progress Note: A&P Assessment and Plan (1) Troponin level elevated: Code(s): R77.8 - Other specified abnormalities of plasma proteins Status: Acute Assessment and Plan: 60-y/o female with h/o remote radiofrequency ablation for tachycardia, HTN, tobacco dependence (quit 2 weeks ago), obesity, who is seen in cardiac consultation for borderline elevated troponin in the setting of acute hypoxic resp failure due to COVID-19 pneumonia No chest pain or ischemic changes on EKG 2D echo reviewed. Normal to hyperdynamic LV function. No regional wall motion changes Borderline trop elevation is likely due to increased demand from underlying resp failure Given cardiovascular risk factors (HTN, active tobacco abus, age, etc) will consider stress testing in outpatient settings once she recovers from acute illness and once otherwise stable . (2) Mediastinal mass: Code(s): J98.59 - Other diseases of mediastinum, not elsewhere classified Status: Acute Assessment and Plan: -CTA of the chest demonstrated anterior mediastinal mass measuring 4.6 x 3.0 cm with differential to include thymoma, thymic carcinoma, and lymphadenopathy, with plans for outpatient Cardiothoracic surgery consultation for histologic confirmation pending recovery from her current pneumonia. (3) NSVT (nonsustained ventricular tachycardia): Code(s): I47.2 - Ventricular tachycardia Status: Acute Assessment and Plan: -No NSVT on my review of tele for the last 24 hours -she had normal potassium and magnesium levels -she had normal free T4 early this admission -Echo with no structural disease -continue to monitor on telemetry. (4) Pneumonia due to COVID-19 virus: Code(s): U07.1 - COVID-19; J12.89 - Other viral pneumonia Status: Acute Assessment and Plan: -she has persistent and progressive hypoxemia with COVID-19 pneumonia. -management as per primary, infectious disease, and Pulmonary Services. -Currently on non rebreather . (5) Essential hypertension: Code(s): I10 - Essential (primary) hypertension Status: Chronic Assessment and Plan: -blood pressure is well controlled and will continue to monitor on current regimen. Subjective Date/time seen: 11/04/20 09:46 She feels fair. She is back on non rebreather. Denies chest pain. no lower ext edema Tele reviewed. No events over the last 24 hours Review of Systems Review of Systems: All systems reviewed & are unremarkable except as noted in HPI and below Exam Narrative: Exam Narrative: Exam Narrative: Ill-appearing patient with tachypnea. HENMT: Head: normal to inspection Mouth: Yes other with high flow O2 Eyes: General: appearance normal, both eyes and all related structures Pupils: Equal, round and reactive pupils present Neck: Neck: normal visual inspection Lymphatic: no lymphadenopathy noted Chest: Chest palpation & inspection: normal inspection of the chest Resp: Effort & Inspection: increased effort, with no audible wheezing or stridor. Able to speak in brief phrases only. Cardio: Jugular venous distension: no JVD Rate: bradycardic, regular in rate and rhythm, no heave. GI: No abdominal distension. Neuro: General: oriented to person and situation Extrem: General: normal to inspection Psych: Normal affect. Objective Data Vital Signs Vital Signs: Vital Signs - 24 hr 11/03/20 10:00 11/03/20 12:00 11/03/20 13:10 Temperature 36.8 C Pulse Rate 71 77 Respiratory Rate 24 H Blood Pressure 131/67 Pulse Oximetry 95 95 11/03/20 13:20 11/03/20 13:30 11/03/20 14:00 Temperature Pulse Rate 65 62 73 Respiratory Rate 20 20 Blood Pressure Pulse Oximetry 11/03/20 16:00 11/03/20 16:10 11/03/20 18:00 Temperature 36.9 C Pulse Rate 77 72 72 Respiratory Rate 22 H 22 H Blood Pressure 134/71 Pulse Oximetry 93 93 11/03/20 19:30 11/03/20 20:00 11/03/20 21:13 Temperature 36.9
--- NOTE | 2020-11-04 12:50 | PM.PNPUL ---
Progress Note: A&P Additional Plan COVID -related ARDS. Her nocturnal BiPAP uses been variable and I encouraged it. Following. Subjective Date/time seen: 11/04/20 12:50 Oxygenation remains stable in low 90s sat, on AirVu and non-rebreather both Exam Narrative: Exam Narrative: chest sounds clear. Heart sounds regular. Objective Data Vital Signs Vital Signs: Vital Signs - 24 hr 11/03/20 13:10 11/03/20 13:20 11/03/20 13:30 Temperature Pulse Rate 65 62 Respiratory Rate 20 20 Blood Pressure Pulse Oximetry 95 11/03/20 14:00 11/03/20 16:00 11/03/20 16:10 Temperature 36.9 C Pulse Rate 73 77 72 Respiratory Rate 22 H 22 H Blood Pressure 134/71 Pulse Oximetry 93 93 11/03/20 18:00 11/03/20 19:30 11/03/20 20:00 Temperature 36.9 C Pulse Rate 72 67 67 Respiratory Rate 20 20 Blood Pressure 122/74 Pulse Oximetry 92 92 11/03/20 21:13 11/03/20 21:27 11/03/20 21:53 Temperature Pulse Rate 59 L 59 L 65 Respiratory Rate 20 20 20 Blood Pressure Pulse Oximetry 94 11/03/20 22:00 11/03/20 23:58 11/04/20 00:00 Temperature 36.1 C L Pulse Rate 62 59 L 72 Respiratory Rate 20 20 Blood Pressure 123/71 Pulse Oximetry 90 90 11/04/20 02:00 11/04/20 03:15 11/04/20 03:42 Temperature 36.1 C L Pulse Rate 84 61 58 L Respiratory Rate 20 20 Blood Pressure 110/64 Pulse Oximetry 90 11/04/20 03:59 11/04/20 04:00 11/04/20 06:00 Temperature Pulse Rate 62 63 56 L Respiratory Rate 20 20 Blood Pressure Pulse Oximetry 93 93 11/04/20 08:00 11/04/20 08:05 11/04/20 08:17 Temperature 36.2 C L Pulse Rate 66 66 68 Respiratory Rate 16 22 H 22 H Blood Pressure 123/89 Pulse Oximetry 93 90 11/04/20 10:00 Temperature Pulse Rate 55 L Respiratory Rate Blood Pressure Pulse Oximetry Intake/Output Intake/Output: Intake & Output 11/01/20 11/02/20 11/03/2020 23:59 23:59 23:59 23:59 Intake Total 2380 1860 1120 Output Total 1725 1700 1500 450 Balance 655 160 -380 -450 Meds/Results Medications: Active Medications Generic Name Dose Route Start Last Admin Trade Name Freq PRN Reason Stop Dose Admin Acetaminophen 650 mg 10/23/20 13:56 10/23/20 15:17 Acetaminophen 325 Mg Tablet PO 650 mg Q4H PRN Administration Headache Albuterol 2.5 mg 10/30/20 14:00 11/04/20 03:41 Albuterol Sulfate Neb 2.5 Mg/0.5 Ml Inh INHALATION 2.5 mg Q6HRT WILLIE Administration Aspirin 81 mg 11/04/20 09:00 11/04/20 09:20 Aspirin 81 Mg Enteric Tablet PO 81 mg QAM WILLIE Administration Atorvastatin Calcium 80 mg 11/03/20 21:00 11/03/20 21:01 Atorvastatin 40 Mg Tablet PO 80 mg Q24H WILLIE Administration Enoxaparin Sodium 110 mg 11/03/20 21:00 11/04/20 09:20 Enoxaparin 120 Mg/0.8 Ml Syringe SUB-Q 110 mg Q12HR WILLIE Administration Famotidine 20 mg 10/23/20 17:00 11/04/20 09:20 Famotidine 20 Mg Tablet PO 20 mg BID WILLIE Administration Ipratropium [place] 0.5 mg 10/30/20 14:00 11/04/20 03:42 Ipratropium Br 0.02% Inh Soln 0.5 Mg/2.5 Ml Vial INHALATION 0.5 mg Q6HRT WILLIE Administration Methylprednisolone Sodium Succinate 40 mg 11/02/20 10:10 11/04/20 09:20 Methylprednisolone Sod Succ 40 Mg Vial IV PUSH 40 mg Q12HR WILLIE Administration Sodium Chloride 10 ml 11/02/20 06:00 11/04/20 06:28 Central Line Flush IV PUSH 10 ml Q8HR WILLIE Administration Sodium Chloride 10 ml 11/01/20 22:01 Central Line Flush IV PUSH PRN PRN with TPN bag changes Sodium Chloride 20 ml 11/01/20 22:01 Central Line Flush IV PUSH PRN PRN after blood draws Radiology Results: ITS Impressions Chest X-Ray 11/03/20 06:51 IMPRESSION: 1. No significant interval change in diffuse bilateral lung disease consistent with pneumonia and/or pulmonary edema. Labs Labs: Laboratory Results - last 24 hr 11/04/20 11/04/20 04:50 04:50 WBC 21.5 H RBC 4.37 Hgb 12.5 H
--- NOTE | 2020-11-04 15:31 | PM.IMPN ---
Progress Note: A&P Assessment and Plan (1) Acute respiratory failure with hypoxia: Code(s): J96.01 - Acute respiratory failure with hypoxia Status: Acute Assessment and Plan: Secondary to COVID-19 pneumonia. with ARDS on high flow at 60% pulmology rounding see recommendations (2) COVID-19: Code(s): U07.1 - COVID-19 Status: Acute Assessment and Plan: She tested positive for COVID-19 10/16/20.. Plan to continue steroids.. She completed remdesivir on 10/27/20. Convalescent plasma administered 10/28/2020 Continue incentive spirometry Continue supportive care to include mucinex, scheduled albuterol via MDI, and acetaminophen prn Encourage prone positioning Continue supplemental oxygen as needed to maintain oxygen saturation >90% Continue isolation precautions (3) MARIA E (generalized anxiety disorder): Code(s): F41.1 - Generalized anxiety disorder Status: Acute Assessment and Plan: Mood is stable. (4) Essential hypertension: Code(s): I10 - Essential (primary) hypertension Status: Chronic Assessment and Plan: Blood pressures continue to monitor (5) Mediastinal mass: Code(s): J98.59 - Other diseases of mediastinum, not elsewhere classified Status: Acute Assessment and Plan: Chest CTA showed anterior mediastinal mass measuring 4.6x3.0cm with differential to include thymoma, thymic carcinoma, and lymphadenopathy. Discussed with the patient and she will need referral to cardiothoracic surgery once she is discharged for histologic confirmation Previous provider discussed with Kacey at Dr. Shaffer's office regarding the need for referral on 10/27/20. (6) Leukocytosis: Code(s): D72.829 - Elevated white blood cell count, unspecified Status: Acute Assessment and Plan: Continues to antibiotics. Subjective Date/time seen: 11/04/20 15:31 Interval history: 60 year old female Who was diagnosed at [facility] approximately 10 days ago for COVID-19. CTA hasread as moderate patchy bilateral airspace disease suspicious for COVID-19 pneumonia.no chest pain, no cough or fever. Just SOB. Seen by cardiology and pulmonology, ID. Slow improvement, WCC [id number]. Pt is on IV steroids and breathing treatments. pt had a cxr yesterday covid and ards. Oxygen requirement is still high 60% high flow. pt bit anxious in the room Review of Systems Review of Systems: All systems reviewed & are unremarkable except as noted in HPI and below Exam Narrative: Exam Narrative: Ms. Hogan is on obese 60-year-old female still has mild sob. Neuro: awake, alert and oriented x4, speech clear, no focal neuro deficits noted HEENMT: normocephalic, atraumatic, EOMI, sclerae anicteric, moist oral mucosa, tongue midline, nares patent Neck: supple, no lymphadenopathy Respiratory: labored on 60% high flow Cardio: regular rate, regular rhythm with S1-S2 Abdomen: nondistended, normoactive bowel sounds, soft, nontender to palpation, no rigidity or guarding : pool catheter patent and draining froylan colored urine Extremities: no edema, erythema, cyanosis, clubbing, or tenderness to palpation, DP pulses 2+ bilaterally Skin: no rashes or lesions, warm and dry Psych: appropriate mood and affect, judgment and insight intact Objective Data Vital Signs Vital Signs: Vital Signs - 24 hr 11/03/20 16:00 11/03/20 16:10 11/03/20 18:00 Temperature 36.9 C Pulse Rate 77 72 72 Respiratory Rate 22 H 22 H Blood Pressure 134/71 Pulse Oximetry 93 93 11/03/20 19:30 11/03/20 20:00 11/03/20 21:13 Temperature 36.9 C Pulse Rate 67 67 59 L Respiratory Rate 20 20 20 Blood Pressure 122/74 Pulse Oximetry 92 92 11/03/20 21:27 11/03/20 21:53 11/03/20 22:00 Temperature Pulse Rate 59 L 65 62 Respiratory Rate 20 20 Blood Pressure Pulse Oximetry 94 11/03/20 23:58 11/04/20 00:00 11/04/20 02:00 Temperature 36.1 C
--- NOTE | 2020-11-04 18:06 | PC.NURSE ---
Pt desaturated this morning sitting up for breakfast. Placed on 15L NRB @ 0810 AM. Remained on NRB until 11:30 AM.
[2020-11-04] MEDS: ATORVASTATIN 40 MG TABLET 80 MG PO (20:57)
[2020-11-05] VITALS (24 sets, daily range): BP systolic 100–113; BP diastolic 58–77; PULSE 56–83; RESP 20–28; TEMP 36.7–37.2; O2SAT 91–97
[2020-11-05] MEDS: ALBUTEROL SULFATE NEB 2.5 MG/0.5 ML INH INHALATION ×4 (01:50→21:40)
[2020-11-05] MEDS: IPRATROPIUM BR 0.02% INH SOLN 0.5 MG/2.5 ML VIAL INHALATION ×4 (01:51→21:40)
[2020-11-05] MEDS: CENTRAL LINE FLUSH 10 ML IV PUSH ×3 (06:04→20:26)
[2020-11-05] MEDS: methylPREDNISolone SOD SUCC 40 MG VIAL IV PUSH ×2 (08:21→20:26)
[2020-11-05] MEDS: ASPIRIN 81 MG ENTERIC TABLET PO (08:21)
[2020-11-05] MEDS: ENOXAPARIN 120 MG/0.8 ML SYRINGE 110 MG SUB-Q ×2 (08:21→20:26)
[2020-11-05] MEDS: FAMOTIDINE 20 MG TABLET PO ×2 (08:21→17:49)
--- NOTE | 2020-11-05 10:51 | PM.PNPUL ---
Progress Note: A&P Time Spent With Patient Time: COVID ARDS. Oxygenation seems stable. Time with patient: 25 - 35 minutes Subjective Date/time seen: 11/05/20 10:51 Continues AirVo, sometimes with superimposed NRM. Sleeping on her side. No BiPAP (per respiratory I am told). Exam Narrative: Exam Narrative: Alert. Mood seems better today. . Chest sounds clear. Heart regular. Objective Data Vital Signs Vital Signs: Vital Signs - 24 hr 11/04/20 12:00 11/04/20 14:00 11/04/20 14:18 Temperature 36.8 C Pulse Rate 78 86 78 Respiratory Rate 18 20 Blood Pressure 128/76 Pulse Oximetry 90 11/04/20 14:26 11/04/20 16:00 11/04/20 18:00 Temperature 36.3 C L Pulse Rate 80 78 89 Respiratory Rate 20 18 Blood Pressure 112/60 Pulse Oximetry 90 11/04/20 20:00 11/04/20 20:25 11/04/20 20:34 Temperature 36.6 C Pulse Rate 83 84 84 Respiratory Rate 22 H 22 H 22 H Blood Pressure 109/67 Pulse Oximetry 92 92 11/04/20 21:38 11/04/20 23:30 11/04/20 23:33 Temperature 36.7 C Pulse Rate 74 64 64 Respiratory Rate 22 H 22 H Blood Pressure 119/77 Pulse Oximetry 94 94 11/05/20 01:51 11/05/20 02:00 11/05/20 02:02 Temperature Pulse Rate 61 64 65 Respiratory Rate 20 20 Blood Pressure Pulse Oximetry 11/05/20 03:53 11/05/20 04:00 11/05/20 06:00 Temperature 36.7 C Pulse Rate 65 57 L 58 L Respiratory Rate 20 20 Blood Pressure 105/58 L Pulse Oximetry 94 96 11/05/20 08:00 11/05/20 10:00 11/05/20 10:11 Temperature 36.7 C Pulse Rate 74 70 77 Respiratory Rate 22 H 20 Blood Pressure 113/76 Pulse Oximetry 95 92 11/05/20 10:21 Temperature Pulse Rate 74 Respiratory Rate 20 Blood Pressure Pulse Oximetry Intake/Output Intake/Output: Intake & Output 11/02/20 11/03/20 11/04/20 11/05/20 23:59 23:59 23:59 23:59 Intake Total 1860 1120 480 100 Output Total 1700 1500 2150 700 Balance 799 -830 -8610 -600 Meds/Results Medications: Active Medications Generic Name Dose Route Start Last Admin Trade Name Freq PRN Reason Stop Dose Admin Acetaminophen 650 mg 10/23/20 13:56 10/23/20 15:17 Acetaminophen 325 Mg Tablet PO 650 mg Q4H PRN Administration Headache Albuterol 2.5 mg 10/30/20 14:00 11/05/20 10:09 Albuterol Sulfate Neb 2.5 Mg/0.5 Ml Inh INHALATION 2.5 mg Q6HRT WILLIE Administration Aspirin 81 mg 11/04/20 09:00 11/05/20 08:21 Aspirin 81 Mg Enteric Tablet PO 81 mg QAM WILLIE Administration Atorvastatin Calcium 80 mg 11/03/20 21:00 11/04/20 20:57 Atorvastatin 40 Mg Tablet PO 80 mg Q24H WILLIE Administration Enoxaparin Sodium 110 mg 11/03/20 21:00 11/05/20 08:21 Enoxaparin 120 Mg/0.8 Ml Syringe SUB-Q 110 mg Q12HR WILLIE Administration Famotidine 20 mg 10/23/20 17:00 11/05/20 08:21 Famotidine 20 Mg Tablet PO 20 mg BID WILLIE Administration Ipratropium [place] 0.5 mg 10/30/20 14:00 11/05/20 10:10 Ipratropium Br 0.02% Inh Soln 0.5 Mg/2.5 Ml Vial INHALATION 0.5 mg Q6HRT WILLIE Administration Methylprednisolone Sodium Succinate 40 mg 11/02/20 10:10 11/05/20 08:21 Methylprednisolone Sod Succ 40 Mg Vial IV PUSH 40 mg Q12HR WILLIE Administration Sodium Chloride 10 ml 11/02/20 06:00 11/05/20 06:04 Central Line Flush IV PUSH 10 ml Q8HR WILLIE Administration Sodium Chloride 10 ml 11/01/20 22:01 Central Line Flush IV PUSH PRN PRN with TPN bag changes Sodium Chloride 20 ml 11/01/20 22:01 Central Line Flush IV PUSH PRN PRN after blood draws Radiology Results: ITS Impressions Chest X-Ray 11/03/20 06:51 IMPRESSION: 1. No significant interval change in diffuse bilateral lung disease consistent with pneumonia and/or pulmonary edema.
--- NOTE | 2020-11-05 17:06 | PM.IMPN ---
Progress Note: A&P Assessment and Plan (1) Acute respiratory failure with hypoxia: Code(s): J96.01 - Acute respiratory failure with hypoxia Status: Acute Assessment and Plan: Secondary to COVID-19 pneumonia. with ARDS on airvo pulmology rounding see recommendations [facility] [id number]. Pt is on IV steroids and breathing treatments. Not on Bipap today only Airvo. 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 Plan to continue steroids.. She completed remdesivir on 10/27/20. Convalescent plasma administered 10/28/2020 Continue incentive spirometry Continue supportive care to include mucinex, scheduled albuterol via MDI, and acetaminophen prn Encourage prone positioning Continue supplemental oxygen as needed to maintain oxygen saturation >90% Continue isolation precautions (3) MARIA E (generalized anxiety disorder): Code(s): F41.1 - Generalized anxiety disorder Status: Acute Assessment and Plan: Mood is stable. (4) Essential hypertension: Code(s): I10 - Essential (primary) hypertension Status: Chronic Assessment and Plan: Blood pressures continue to monitor (5) Mediastinal mass: Code(s): J98.59 - Other diseases of mediastinum, not elsewhere classified Status: Acute Assessment and Plan: Chest CTA showed anterior mediastinal mass measuring 4.6x3.0cm with differential to include thymoma, thymic carcinoma, and lymphadenopathy. (6) Leukocytosis: Code(s): D72.829 - Elevated white blood cell count, unspecified Status: Acute Subjective Date/time seen: 11/05/20 17:06 Interval history: 60 year old female Who was diagnosed at [facility] approximately 10 days ago for COVID-19. CTA has read as moderate patchy bilateral airspace disease suspicious for COVID-19 pneumonia.no chest pain, no cough or fever. Just SOB. Seen by cardiology and pulmonology, ID. Slow improvement, WCC [id number]. Pt is on IV steroids and breathing treatments. Not on Bipap today only Airvo. 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 Pt is sp plasma and remdesivir. Pt had a bath in bed and had something to eat doing more Review of Systems Review of Systems: All systems reviewed & are unremarkable except as noted in HPI and below Exam Narrative: Exam Narrative: Vital Signs Temp Pulse Resp BP Pulse Ox 11/05/20 15:20 83 20 11/05/20 15:06 80 20 11/05/20 12:00 37.2 C 73 20 113/77 95 11/05/20 10:21 74 20 11/05/20 10:11 77 20 92 11/05/20 10:00 70 11/05/20 08:00 36.7 C 74 22 H 113/76 95 11/05/20 06:00 58 L 11/05/20 04:00 36.7 C 57 L 20 105/58 L 96 11/05/20 03:53 65 20 94 11/05/20 02:02 65 20 11/05/20 02:00 64 11/05/20 01:51 61 20
[2020-11-05] MEDS: ATORVASTATIN 40 MG TABLET 80 MG PO (20:25)
[2020-11-06] VITALS (25 sets, daily range): BP systolic 100–115; BP diastolic 62–70; PULSE 57–93; RESP 20–24; TEMP 36.5–37; O2SAT 90–100
[2020-11-06] MEDS: ALBUTEROL SULFATE NEB 2.5 MG/0.5 ML INH INHALATION ×4 (02:10→20:53)
[2020-11-06] MEDS: IPRATROPIUM BR 0.02% INH SOLN 0.5 MG/2.5 ML VIAL INHALATION ×4 (02:10→20:53)
[2020-11-06 03:42] LABS: Hematocrit 37.9 % (37.0-47.0); Hemoglobin 12.4 g/dL (12.0-15.0); Mean Corpuscular HGB Conc 32.7 g/dl (32-36); Mean Corpuscular Hemoglobin 28.5 pg (26-34); Mean Corpuscular Volume 87.1 fl (80-100); Mean Platelet Volume 11.3 fl (7.4-10.4); Platelet Count Result 294 k/mm3 (150-375); Red Blood Count 4.35 M/mm3 (4.2-5.4); Red Cell Distribution Width 12.1 % (11.5-14.5); White Blood Count 17.9 K/mm3 (4.5-10.0)
[2020-11-06 03:56] LABS: Anion Gap 2 mmol/L (8-16); Blood Urea Nitrogen 25 mg/dL (7-17); Calcium 8.3 mg/dL (8.4-10.2); Carbon Dioxide 31 mmol/L (22-30); Chloride 103 mmol/L (98-107); Estimated CRCL calculation 91 ml/min; Estimated Glomerular Filt Rate > 60; Glucose 145 mg/dL (65-105); Potassium 4.5 mmol/L (3.4-5.0); Sodium 136 mmol/L (137-145)
[2020-11-06] MEDS: ENOXAPARIN 120 MG/0.8 ML SYRINGE 110 MG SUB-Q ×2 (08:14→20:04)
[2020-11-06] MEDS: FAMOTIDINE 20 MG TABLET PO ×2 (08:14→16:19)
[2020-11-06] MEDS: methylPREDNISolone SOD SUCC 40 MG VIAL IV PUSH ×2 (08:14→20:05)
[2020-11-06] MEDS: ASPIRIN 81 MG ENTERIC TABLET PO (08:15)
[2020-11-06] MEDS: CENTRAL LINE FLUSH 10 ML IV PUSH ×3 (08:15→20:05)
--- NOTE | 2020-11-06 09:44 | PCDIET ---
Weekly nutritional screen. Patient is tolerating current diet with adequate intake. Reports good appetite and denies c/o or concerns. Last documented BM on 11/04/20. Recommend obtaining new weight. No nutritional needs at this time.
--- NOTE | 2020-11-06 10:33 | PM.PNPUL ---
Progress Note: A&P Additional Plan Stable on AirVo and NRM, with good sats in the mid 90s. No BiPAP. Following. Time Spent With Patient Time with patient: 25 - 35 minutes Subjective Date/time seen: 11/06/20 10:33 Smiling and train to maintain a good attitude. Denies active respiratory symptoms. Exam Const: Other: Chest sounds clear. Heart regular. No neck adenopathy. Objective Data Vital Signs Vital Signs: Vital Signs - 24 hr 11/05/20 12:00 11/05/20 14:00 11/05/20 15:06 Temperature 37.2 C Pulse Rate 73 65 80 Respiratory Rate 20 20 Blood Pressure 113/77 Pulse Oximetry 95 11/05/20 15:20 11/05/20 16:00 11/05/20 18:00 Temperature 36.9 C Pulse Rate 83 74 74 Respiratory Rate 20 22 H Blood Pressure 111/67 Pulse Oximetry 96 11/05/20 19:50 11/05/20 20:00 11/05/20 21:42 Temperature 36.7 C Pulse Rate 74 74 Respiratory Rate 20 20 28 H Blood Pressure 103/61 Pulse Oximetry 97 97 95 11/05/20 21:43 11/05/20 21:44 11/05/20 22:00 Temperature Pulse Rate 80 71 Respiratory Rate 20 Blood Pressure Pulse Oximetry 95 11/05/20 23:38 11/05/20 23:44 11/06/20 01:59 Temperature 36.7 C Pulse Rate 71 66 68 Respiratory Rate 20 20 Blood Pressure 100/65 Pulse Oximetry 91 91 11/06/20 02:11 11/06/20 03:46 11/06/20 04:00 Temperature 36.6 C Pulse Rate 80 61 61 Respiratory Rate 20 20 20 Blood Pressure 100/62 Pulse Oximetry 95 96 11/06/20 05:57 11/06/20 07:31 11/06/20 07:32 Temperature Pulse Rate 67 57 L 57 L Respiratory Rate 20 20 Blood Pressure Pulse Oximetry 98 11/06/20 08:00 11/06/20 08:10 Temperature 37.0 C Pulse Rate 64 Respiratory Rate 22 H Blood Pressure 112/69 Pulse Oximetry 96 97 Intake/Output Intake/Output: Intake & Output 11/03/20 11/04/20 11/05/20 11/06/20 23:59 23:59 23:59 23:59 Intake Total 9053 323 1316 540 Output Total 1500 2150 1250 650 Balance -380 -1670 60 -110 Meds/Results Medications: Active Medications Generic Name Dose Route Start Last Admin Trade Name Freq PRN Reason Stop Dose Admin Acetaminophen 650 mg 10/23/20 13:56 10/23/20 15:17 Acetaminophen 325 Mg Tablet PO 650 mg Q4H PRN Administration Headache Albuterol 2.5 mg 10/30/20 14:00 11/06/20 07:30 Albuterol Sulfate Neb 2.5 Mg/0.5 Ml Inh INHALATION 2.5 mg Q6HRT WILLIE Administration Aspirin 81 mg 11/04/20 09:00 11/06/20 08:15 Aspirin 81 Mg Enteric Tablet PO 81 mg QAM WILLIE Administration Atorvastatin Calcium 80 mg 11/03/20 21:00 11/05/20 20:25 Atorvastatin 40 Mg Tablet PO 80 mg Q24H WILLIE Administration Enoxaparin Sodium 110 mg 11/03/20 21:00 11/06/20 08:14 Enoxaparin 120 Mg/0.8 Ml Syringe SUB-Q 110 mg Q12HR WILLIE Administration Famotidine 20 mg 10/23/20 17:00 11/06/20 08:14 Famotidine 20 Mg Tablet PO 20 mg BID WILLIE Administration Ipratropium [place] 0.5 mg 10/30/20 14:00 11/06/20 07:31 Ipratropium Br 0.02% Inh Soln 0.5 Mg/2.5 Ml Vial INHALATION 0.5 mg Q6HRT WILLIE Administration Methylprednisolone Sodium Succinate 40 mg 11/02/20 10:10 11/06/20 08:14 Methylprednisolone Sod Succ 40 Mg Vial IV PUSH 40 mg Q12HR WILLIE Administration Sodium Chloride 10 ml 11/02/20 06:00 11/06/20 08:15 Central Line Flush IV PUSH 10 ml Q8HR WILLIE Administration Sodium Chloride 10 ml 11/01/20 22:01 Central Line Flush IV PUSH PRN PRN with TPN bag changes Sodium Chloride 20 ml 11/01/20 22:01 Central Line Flush IV PUSH PRN PRN after blood draws Radiology Results: ITS Impressions Chest X-Ray 11/03/20 06:51 IMPRESSION: 1. No significant interval change in diffuse bilateral lung disease consistent with pneumonia and/or pulmonary edema. Labs Labs: Laboratory Results - last 24 hr 11/06/20 11/06/20 03:30 03:30 WBC 17.9 H RBC 4.35 Hgb 12.4 Hct 37.9 MCV 87.1 MCH 28.5 MCHC 32.7 RDW 12.1 Plt Count 294 MP
--- NOTE | 2020-11-06 15:24 | PM.IMPN ---
Progress Note: A&P Assessment and Plan (1) Acute respiratory failure with hypoxia: Code(s): J96.01 - Acute respiratory failure with hypoxia Status: Acute Assessment and Plan: Secondary to COVID-19 pneumonia. with ARDS on 48% high flow pulmonology rounding see recommendations WCC [id number]. Pt is on IV steroids and breathing treatments. 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 Plan to continue steroids, She completed remdesivir on 10/27/20. Convalescent plasma administered 10/28/2020 Continue incentive spirometry Continue supportive care to include mucinex, scheduled albuterol via MDI, and acetaminophen prn Encourage prone positioning Continue supplemental oxygen as needed to maintain oxygen saturation >90% Continue isolation precautions (3) MARIA E (generalized anxiety disorder): Code(s): F41.1 - Generalized anxiety disorder Status: Acute Assessment and Plan: Mood is stable. (4) Essential hypertension: Code(s): I10 - Essential (primary) hypertension Status: Chronic Assessment and Plan: Blood pressures continue to monitor (5) Mediastinal mass: Code(s): J98.59 - Other diseases of mediastinum, not elsewhere classified Status: Acute Assessment and Plan: Chest CTA showed anterior mediastinal mass measuring 4.6x3.0cm with differential to include thymoma, thymic carcinoma, and lymphadenopathy. (6) Leukocytosis: Code(s): D72.829 - Elevated white blood cell count, unspecified Status: Acute Assessment and Plan: Secondary to steroids Subjective Date/time seen: 11/06/20 15:24 Interval history: 60 year old female Who was diagnosed at [facility] approximately 10 days ago for COVID-19. CTA has read as moderate patchy bilateral airspace disease suspicious for COVID-19 pneumonia.no chest pain, no cough or fever. Just SOB. Seen by cardiology and pulmonology, ID. Slow improvement, WCC [id number]. Pt is on IV steroids and breathing treatments. Not on Bipap today only Airvo. 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 Pt is sp plasma and remdesivir. Doing better. on high flow at 45% Review of Systems Review of Systems: All systems reviewed & are unremarkable except as noted in HPI and below Exam Narrative: Exam Narrative: Comfortable alert talking on high flow at 48% Chest: Chest palpation & inspection: normal inspection of the chest GI: Inspection: normal to inspection Auscultation: normal bowel sounds Skin: General skin exam: normal color Lesions: no lesions Rashes: no rashes Trauma: no lacerations or abrasions Wounds: no wounds Hair: normal Nails: normal Neuro: General: oriented to person, oriented to place, oriented to time and patient oriented x3 Cranial nerves: Yes Equal, round and reactive pupils present and Yes Normal hearing present Cognition (Neuro): normal cognition Speech: normal speech Motor exam (neuro): 5/5 motor strength present throughout Sensory Exam: normal sensation Objective Data Vital Signs Vital Signs: Vital Signs - 24 hr 11/05/20 16:00 11/05/20 18:00 11/05/20 19:50 Temperature 36.9 C 36.7 C Pulse Rate 74 74 74 Respiratory Rate 22 H 20 Blood Pressure 111/67 103/61 Pulse Oximetry 96 97 11/05/20 20:00 11/05/20 21:42 11/05/20 21:43 Temperature Pulse Rate 74 Respiratory Rate 20 28 H Blood Pressure Pulse Oximetry 97 95 95 11/05/20 21:44 11/05/20 22:00 11/05/20 23:38 Temperature 36.7 C Pulse Rate 80 71 71 Respiratory Rate 20 20 Blood Pressure 100/65 Pulse Oximetry 91 11/05/20 23:44 11/06/20 01:59 11/06/20 02:11 Temperature Pulse Rate 66 68 80 Respiratory Rate 20 20 Blood Pressure Pulse Oximetry 91 11/06/20 03:46 11/06/20 04:0
[2020-11-06] MEDS: ATORVASTATIN 40 MG TABLET 80 MG PO (20:05)
[2020-11-07] VITALS (22 sets, daily range): BP systolic 97–117; BP diastolic 62–75; PULSE 58–99; RESP 20–22; TEMP 36–37.1; O2SAT 90–99
[2020-11-07] MEDS: IPRATROPIUM BR 0.02% INH SOLN 0.5 MG/2.5 ML VIAL INHALATION ×4 (02:07→22:05)
[2020-11-07] MEDS: ALBUTEROL SULFATE NEB 2.5 MG/0.5 ML INH INHALATION ×4 (02:07→22:05)
[2020-11-07 04:45] LABS: Hematocrit 32.7 % (37.0-47.0); Hemoglobin 10.6 g/dL (12.0-15.0); Mean Corpuscular HGB Conc 32.4 g/dl (32-36); Mean Corpuscular Hemoglobin 28.4 pg (26-34); Mean Corpuscular Volume 87.7 fl (80-100); Mean Platelet Volume 11.5 fl (7.4-10.4); Platelet Count Result 211 k/mm3 (150-375); Red Blood Count 3.73 M/mm3 (4.2-5.4); Red Cell Distribution Width 11.9 % (11.5-14.5); White Blood Count 16.3 K/mm3 (4.5-10.0)
[2020-11-07 05:00] LABS: Anion Gap 1 mmol/L (8-16); Blood Urea Nitrogen 21 mg/dL (7-17); Calcium 7.1 mg/dL (8.4-10.2); Carbon Dioxide 28 mmol/L (22-30); Chloride 110 mmol/L (98-107); Estimated CRCL calculation 123 ml/min; Estimated Glomerular Filt Rate > 60; Glucose 118 mg/dL (65-105); Potassium 3.7 mmol/L (3.4-5.0); Sodium 139 mmol/L (137-145)
[2020-11-07] MEDS: FAMOTIDINE 20 MG TABLET PO ×2 (08:36→16:07)
[2020-11-07] MEDS: ENOXAPARIN 120 MG/0.8 ML SYRINGE 110 MG SUB-Q ×2 (08:36→20:20)
[2020-11-07] MEDS: ASPIRIN 81 MG ENTERIC TABLET PO (08:36)
[2020-11-07] MEDS: CENTRAL LINE FLUSH 10 ML IV PUSH ×3 (08:37→20:21)
[2020-11-07] MEDS: methylPREDNISolone SOD SUCC 40 MG VIAL IV PUSH ×2 (08:37→20:20)
--- NOTE | 2020-11-07 16:45 | PM.IMPN ---
Progress Note: A&P Assessment and Plan (1) Acute respiratory failure with hypoxia: Code(s): J96.01 - Acute respiratory failure with hypoxia Status: Acute Assessment and Plan: Secondary to COVID-19 pneumonia. with ARDS on 48% high flow pulmonology rounding see recommendations WCC [id number]. Pt is on IV steroids and breathing treatments. 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 Plan to continue steroids, She completed remdesivir on 10/27/20. Convalescent plasma administered 10/28/2020 Continue incentive spirometry Continue supportive care to include mucinex, scheduled albuterol via MDI, and acetaminophen prn Encourage prone positioning Continue supplemental oxygen as needed to maintain oxygen saturation >90% Continue isolation precautions (3) MARIA E (generalized anxiety disorder): Code(s): F41.1 - Generalized anxiety disorder Status: Acute Assessment and Plan: Mood is stable. (4) Essential hypertension: Code(s): I10 - Essential (primary) hypertension Status: Chronic Assessment and Plan: Blood pressures continue to monitor (5) Mediastinal mass: Code(s): J98.59 - Other diseases of mediastinum, not elsewhere classified Status: Acute Assessment and Plan: Chest CTA showed anterior mediastinal mass measuring 4.6x3.0cm with differential to include thymoma, thymic carcinoma, and lymphadenopathy. (6) Leukocytosis: Code(s): D72.829 - Elevated white blood cell count, unspecified Status: Acute Assessment and Plan: Secondary to steroids Subjective Date/time seen: 11/07/20 16:45 Interval history: 60 year old female Who was diagnosed at [facility] approximately 10 days ago for COVID-19. CTA has read as moderate patchy bilateral airspace disease suspicious for COVID-19 pneumonia.no chest pain, no cough or fever. Just SOB. Seen by cardiology and pulmonology, ID. Slow improvement, WCC [id number]. Pt is on IV steroids and breathing treatments. Not on Bipap today only Airvo. 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 Pt is sp plasma and remdesivir. Doing better on high flow at 12 liters Review of Systems Review of Systems: All systems reviewed & are unremarkable except as noted in HPI and below Exam Narrative: Exam Narrative: Comfortable alert talking on high flow at 48% Chest: Chest palpation & inspection: normal inspection of the chest Resp: Effort & Inspection: normal respiratory effort Auscultation: wheezes Percussion: percussion normal Cardio: Palpation: normal PMI Rate: regular rate Rhythm: regular rhythm Heart sounds: S1 normal heart sound present and S2 normal heart sound present Peripheral pulses: Peripheral pulses 2+ throughout GI: Inspection: normal to inspection Auscultation: normal bowel sounds Skin: General skin exam: normal color Lesions: no lesions Rashes: no rashes Trauma: no lacerations or abrasions Wounds: no wounds Hair: normal Nails: normal Neuro: General: oriented to person, oriented to place, oriented to time and patient oriented x3 Cranial nerves: Yes Equal, round and reactive pupils present and Yes Normal hearing present Cognition (Neuro): normal cognition Speech: normal speech Motor exam (neuro): 5/5 motor strength present throughout Sensory Exam: normal sensation Extrem: General: normal to inspection Right upper extremity: normal to inspection Left upper extremity: normal to inspection Right lower extremity: normal to inspection Left lower extremity: normal to inspection Psych: Appearance: grossly normal Mental Status: mental status grossly normal Speech and movement: Normal speech and movement present Affect: normal affect Attitude: cooperative Thought process: Normal thoug
[2020-11-07] MEDS: ATORVASTATIN 40 MG TABLET 80 MG PO (20:20)
[2020-11-08] VITALS (27 sets, daily range): BP systolic 93–146; BP diastolic 55–82; PULSE 60–98; RESP 20–26; TEMP 35.9–36.9; O2SAT 88–98
[2020-11-08] MEDS: IPRATROPIUM BR 0.02% INH SOLN 0.5 MG/2.5 ML VIAL INHALATION ×4 (03:05→21:31)
[2020-11-08] MEDS: ALBUTEROL SULFATE NEB 2.5 MG/0.5 ML INH INHALATION ×4 (03:05→21:31)
[2020-11-08] MEDS: CENTRAL LINE FLUSH 10 ML IV PUSH ×3 (06:04→20:09)
[2020-11-08] MEDS: methylPREDNISolone SOD SUCC 40 MG VIAL IV PUSH ×2 (09:57→20:08)
[2020-11-08] MEDS: ASPIRIN 81 MG ENTERIC TABLET PO (09:57)
[2020-11-08] MEDS: FAMOTIDINE 20 MG TABLET PO ×2 (09:57→17:45)
[2020-11-08] MEDS: ENOXAPARIN 120 MG/0.8 ML SYRINGE 110 MG SUB-Q ×2 (09:57→20:08)
--- NOTE | 2020-11-08 15:01 | PM.IMPN ---
Progress Note: A&P Assessment and Plan (1) Acute respiratory failure with hypoxia: Code(s): J96.01 - Acute respiratory failure with hypoxia Status: Acute Assessment and Plan: Secondary to COVID-19 pneumonia. with ARDS on 48% high flow Pt is staying positive practicing prone positioning pulmonology rounding see recommendations WCC [id number]. Pt is on IV steroids and breathing treatments. 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 Plan to continue steroids, She completed remdesivir on 10/27/20. Convalescent plasma administered 10/28/2020 Continue incentive spirometry Continue supportive care to include mucinex, scheduled albuterol via MDI, and acetaminophen prn Encourage prone positioning Continue supplemental oxygen as needed to maintain oxygen saturation >90% Continue isolation precautions (3) MARIA E (generalized anxiety disorder): Code(s): F41.1 - Generalized anxiety disorder Status: Acute Assessment and Plan: Mood is stable. (4) Essential hypertension: Code(s): I10 - Essential (primary) hypertension Status: Chronic Assessment and Plan: Blood pressures continue to monitor (5) Mediastinal mass: Code(s): J98.59 - Other diseases of mediastinum, not elsewhere classified Status: Acute Assessment and Plan: Chest CTA showed anterior mediastinal mass measuring 4.6x3.0cm with differential to include thymoma, thymic carcinoma, and lymphadenopathy. (6) Leukocytosis: Code(s): D72.829 - Elevated white blood cell count, unspecified Status: Acute Assessment and Plan: Secondary to steroids Subjective Date/time seen: 11/08/20 15:01 Interval history: 60 year old female Who was diagnosed at [facility] approximately 10 days ago for COVID-19. CTA has read as moderate patchy bilateral airspace disease suspicious for COVID-19 pneumonia.no chest pain, no cough or fever. Just SOB. Seen by cardiology and pulmonology, ID. Slow improvement, WCC [id number]. Pt is on IV steroids and breathing treatments. Not on Bipap today only Airvo. 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 Pt is sp plasma and remdesivir. Doing better on high flow at 45%. Good mood and spirits Review of Systems Review of Systems: All systems reviewed & are unremarkable except as noted in HPI and below Exam Narrative: Exam Narrative: Comfortable alert talking on high flow at 48% Const: General: alert and Physically active Orientation/consciousness: oriented to person, oriented to place, oriented to time and patient oriented x3 Limitations: no limitations HENMT: Head: atraumatic Resp: Effort & Inspection: normal respiratory effort Cardio: Heart sounds: S2 normal heart sound present GI: Inspection: normal to inspection Auscultation: normal bowel sounds Skin: General skin exam: normal color Lesions: no lesions Rashes: no rashes Trauma: no lacerations or abrasions Wounds: no wounds Hair: normal Nails: normal Neuro: General: oriented to person, oriented to place, oriented to time and patient oriented x3 Cranial nerves: Yes Equal, round and reactive pupils present and Yes Normal hearing present Cognition (Neuro): normal cognition Speech: normal speech Motor exam (neuro): 5/5 motor strength present throughout Sensory Exam: normal sensation Extrem: General: normal to inspection Right upper extremity: normal to inspection Left upper extremity: normal to inspection Right lower extremity: normal to inspection Left lower extremity: normal to inspection Psych: Appearance: grossly normal Mental Status: mental status grossly normal Speech and movement: Normal speech and movement present Affect: normal affect Attitude: cooperative Thought process: Normal t
--- NOTE | 2020-11-08 19:21 | PM.PNPUL ---
Progress Note: A&P Assessment and Plan (1) Pneumonia due to COVID-19 virus: Code(s): U07.1 - COVID-19; J12.89 - Other viral pneumonia Status: Acute Assessment and Plan: Continue treatment including O2 with Airvo to maintain sat 88% and above She has been on solumedrol 40 mg IV Q 12hours since Nov 02; will transition to oral. Sleep: add melatonin 5 mg and trazodone 25 mg HS; she has not been sleeping well, has anxiety. (2) Acute respiratory failure with hypoxia: Code(s): J96.01 - Acute respiratory failure with hypoxia Status: Acute Assessment and Plan: O2 requirement has increased, now on Airvo, working well Subjective Date/time seen: 11/08/20 19:21 This 60 year old female is seen for COVID and ARDS, not responding to the usual treatments. She required Airvo today, now on 45 L/min and FiO2 85%. She is able to use the [place] valve 10 times per hour, and Incentive Spirometer 10 x per hour. Motivated to improve. Smoked lightly before admission. -Oct 22 ED visit with COVID, sent home -Oct 23 -returned with intractable shortness of breath; admitted; solumedrol 40 mg IV Q 12 hours -Oct 30- worsened hypoxemia, moved from 3rd floor to IMU, started BiPAP -Nov 08 started AirVo; this is maintaining her saturation better Review of Systems Review of Systems: Narrative: able to eat; reporistion herself in bed; nonproductive cough Exam Const: General: cooperative, comfortable and no acute distress HENMT: Head: normal to inspection Ears: hearing grossly normal bilaterally Face and sinus: normal facial exam Eyes: General: appearance normal, both eyes and all related structures Neck: Neck: normal visual inspection Chest: Chest palpation & inspection: normal inspection of the chest Resp: Auscultation: crackles and diminished lung sounds Cardio: Rate: regular rate Rhythm: regular rhythm Heart sounds: S1 normal heart sound present, S2 normal heart sound present, no gallops and no murmurs GI: Auscultation: normal bowel sounds Skin: General skin exam: normal color and no rashes or lesions noted Psych: Appearance: grossly normal Mental Status: mental status grossly normal Objective Data Vital Signs Vital Signs: Vital Signs - 24 hr 11/07/20 20:00 11/07/20 21:36 11/07/20 22:07 Temperature 37.1 C Pulse Rate 77 64 65 Respiratory Rate 22 H 20 Blood Pressure 108/72 Pulse Oximetry 92 94 11/07/20 22:25 11/07/20 23:59 11/08/20 00:00 Temperature 36.0 C L Pulse Rate 68 77 71 Respiratory Rate 20 22 H 22 H Blood Pressure 106/73 Pulse Oximetry 90 90 11/08/20 01:28 11/08/20 03:08 11/08/20 03:22 Temperature Pulse Rate 67 67 71 Respiratory Rate 22 H 20 Blood Pressure Pulse Oximetry 11/08/20 04:00 11/08/20 05:06 11/08/20 05:32 Temperature 35.9 C L Pulse Rate 80 64 63 Respiratory Rate 24 H Blood Pressure 93/55 L Pulse Oximetry 94 95 11/08/20 07:06 11/08/20 08:00 11/08/20 08:40 Temperature 35.9 C L Pulse Rate 60 61 68 Respiratory Rate 26 H 20 20 Blood Pressure 95/60 L Pulse Oximetry 96 94 11/08/20 08:44 11/08/20 08:51 11/08/20 10:00 Temperature Pulse Rate 72 67 Respiratory Rate 20 Blood Pressure Pulse Oximetry 94 11/08/20 11:25 11/08/20 12:00 11/08/20 13:12 Temperature 36.4 C Pulse Rate 83 82 Respiratory Rate 24 H Blood Pressure 146/82 H Pulse Oximetry 88 L 94 11/08/20 13:15 11/08/20 14:00 11/08/20 16:00 Temperature 36.6 C Pulse Rate 83 72 76 Respiratory Rate 24 H 24 H Blood Pressure 100/70 Pulse Oximetry 94 97 11/08/20 16:05 11/08/20 16:18 11/08/20 18:00 Temperature Pulse Rate 82 98 87 Respiratory Rate 20 20 Blood Pressure Pulse Oximetry Intake/Output Intake/Output: Intake & Output 11/05/20 11/06/20 11/07/20 11/08/20 23:59
[2020-11-08] MEDS: ATORVASTATIN 40 MG TABLET 80 MG PO (20:08)
[2020-11-08] MEDS: traZODone HCL 25 MG TABLET PO (21:43)
[2020-11-08] MEDS: MELATONIN 5 MG TABLET PO (21:43)
[2020-11-09] VITALS (27 sets, daily range): BP systolic 100–126; BP diastolic 60–77; PULSE 53–100; RESP 20–26; TEMP 36.2–36.9; O2SAT 80–98
[2020-11-09] MEDS: ALBUTEROL SULFATE NEB 2.5 MG/0.5 ML INH INHALATION ×4 (01:43→20:50)
[2020-11-09] MEDS: IPRATROPIUM BR 0.02% INH SOLN 0.5 MG/2.5 ML VIAL INHALATION ×4 (01:44→20:50)
[2020-11-09] MEDS: CENTRAL LINE FLUSH 10 ML IV PUSH ×3 (05:36→20:57)
[2020-11-09] MEDS: FAMOTIDINE 20 MG TABLET PO ×2 (08:32→16:39)
[2020-11-09] MEDS: ASPIRIN 81 MG ENTERIC TABLET PO (08:32)
[2020-11-09] MEDS: ENOXAPARIN 120 MG/0.8 ML SYRINGE 110 MG SUB-Q ×2 (08:32→20:56)
[2020-11-09] MEDS: methylPREDNISolone SOD SUCC 40 MG VIAL IV PUSH ×2 (08:32→20:57)
--- NOTE | 2020-11-09 17:42 | PM.IMPN ---
Progress Note: A&P Assessment and Plan (1) Acute respiratory failure with hypoxia: Code(s): J96.01 - Acute respiratory failure with hypoxia Status: Acute Assessment and Plan: Slow improvement (2) COVID-19: Code(s): U07.1 - COVID-19 Status: Acute Assessment and Plan: She tested positive for COVID-19 10/16/20.. Plan to continue steroids She completed remdesivir on 10/27/20. Convalescent plasma administered 10/28/2020 Continue incentive spirometry Continue supportive care to include mucinex, scheduled albuterol via MDI, and acetaminophen prn Encourage prone positioning Continue supplemental oxygen as needed to maintain oxygen saturation >90% Continue isolation precautions (3) MARIA E (generalized anxiety disorder): Code(s): F41.1 - Generalized anxiety disorder Status: Acute Assessment and Plan: Mood is stable. (4) Essential hypertension: Code(s): I10 - Essential (primary) hypertension Status: Chronic Assessment and Plan: Blood pressures stable Continue to monitor (5) Mediastinal mass: Code(s): J98.59 - Other diseases of mediastinum, not elsewhere classified Status: Acute Assessment and Plan: Chest CTA showed anterior mediastinal mass measuring 4.6x3.0cm with differential to include thymoma, thymic carcinoma, and lymphadenopathy. F/u when clinically stable after resolution of acute illness (6) Leukocytosis: Code(s): D72.829 - Elevated white blood cell count, unspecified Status: Acute Assessment and Plan: Secondary to steroids Subjective Date/time seen: 11/09/20 17:42 Interval history: 60 year old female admitted 10/23 for COVID-19 pneumonia. Cough remains productive of scant amounts of clear sputum. Denied pain. Tired. [place] with minimal exertion. No gi/gu c/o. Appetite fair. Review of Systems Review of Systems: All systems reviewed & are unremarkable except as noted in HPI and below Exam Narrative: Exam Narrative: HEENT: EOMI, PERRL, sclerae nonicteric, pharyngeal mucosa pink and intact NECK: No JVD, adenopathy, or thyromegaly CHEST: Decreased BS. Mildly tachypneic. HEART: NL S1/S2, regular, no murmur ABDOMEN: BS+, soft, nontender, no mass, no bruits EXTREMITIES: No cyanosis, edema, or clubbing NEUROLOGIC: CN intact and symmetric to inspection. MUSCULOSKELETAL: Tone and strength symmetric. PSYCH: Alert. Oriented to person, place, and time. Objective Data Vital Signs Vital Signs: Vital Signs - 24 hr 11/08/20 18:00 11/08/20 20:00 11/08/20 21:31 Temperature 98.4 F Pulse Rate 87 70 89 Pulse Rate [With Activity During Therapy Session] Respiratory Rate 24 H 20 Blood Pressure 106/64 Pulse Oximetry 96 Pulse Oximetry [With Activity During Therapy Session] 11/08/20 21:43 11/08/20 22:00 11/08/20 23:36 Temperature 98.4 F Pulse Rate 88 62 60 Pulse Rate [With Activity During Therapy Session] Respiratory Rate 20 26 H Blood Pressure 128/73 Pulse Oximetry 96 98 Pulse Oximetry [With Activity During Therapy Session] 11/09/20 00:00 11/09/20 01:44 11/09/20 01:55 Temperature Pulse Rate 63 87 86 Pulse Rate [With Activity During Therapy Session] Respiratory Rate 26 H 20 20 Blood Pressure Pulse Oximetry 98 Pulse Oximetry [With Activity During Therapy Session] 11/09/20 02:00 11/09/20 03:52 11/09/20 04:00 Temperature 97.2 F L Pulse Rate 65 57 L 57 L Pulse Rate [With Activity During Therapy Session] Respiratory Rate 20 24 H 24 H Blood Pressure 105/63 Pulse Oximetry 93 91 91 Pulse Oximetry [With Activity During Therapy Session] 11/09/20 05:30 11/09/20 05:43 11/09/20 07:07 Temperature 97.3 F L Pulse Rate 53 L 63 61 Pulse Rate [With Activity During Therapy Session] Respiratory Rate 26 H 26 H Blood Pressure 107/65 Pulse Oximetry 86 L 92 Pulse Oximetry [With Activity During Therapy Session]
--- NOTE | 2020-11-09 20:49 | PM.PNPUL ---
Progress Note: A&P Assessment and Plan (1) Pneumonia due to COVID-19 virus: Code(s): U07.1 - COVID-19; J12.89 - Other viral pneumonia Status: Acute Assessment and Plan: Continue treatment including O2 with Airvo to maintain sat 88% and above She has been on solumedrol 40 mg IV Q 12hours since Nov 02; stop and change to prednisone 50 mg in the am with food, start oral taper. Sleep: continue melatonin 5 mg and trazodone 25 mg HS; helped last night; has anxiety. (2) Acute respiratory failure with hypoxia: Code(s): J96.01 - Acute respiratory failure with hypoxia Status: Acute Assessment and Plan: O2 requirement has decreased to 8 L/min sat 96%. Subjective Date/time seen: 11/09/20 20:49 This 60 year old female is seen for COVID and ARDS, now better; She was able to have PT and OT, was able to stand independently, improved. Feels better after a bath today. On high flow 8 L/min saturation is 96%. better on lower O2 flow. She continues to use the Cornet valve and Incentive Spirometer. Motivated to improve. Smoked lightly before admission. She was able to sleep better with melatonin and trazodone. -Oct 22 ED visit with COVID, sent home -Oct 23 -returned with intractable shortness of breath; admitted; solumedrol 40 mg IV Q 12 hours -Oct 27 - completed 5 days of remdesivir -Oct 28 - one dose of convalescent plasma -Oct 30- worsened hypoxemia, moved from 3rd floor to IMU, started BiPAP -Nov 08 started AirVo; - Nov 09 - started PT and OT, lower O2 demand 8 L/min Review of Systems Review of Systems: No All systems reviewed & are unremarkable except as noted in HPI and below Exam Const: General: cooperative, comfortable and no acute distress HENMT: Head: normal to inspection Ears: hearing grossly normal bilaterally Face and sinus: normal facial exam Eyes: General: appearance normal, both eyes and all related structures Neck: Neck: normal visual inspection Chest: Chest palpation & inspection: normal inspection of the chest Resp: Auscultation: crackles and diminished lung sounds Cardio: Rate: regular rate Rhythm: regular rhythm Heart sounds: S1 normal heart sound present, S2 normal heart sound present, no gallops and no murmurs GI: Auscultation: normal bowel sounds Skin: General skin exam: normal color and no rashes or lesions noted Psych: Appearance: grossly normal Mental Status: mental status grossly normal Objective Data Vital Signs Vital Signs: Vital Signs - 24 hr 11/08/20 21:31 11/08/20 21:43 11/08/20 22:00 Temperature Pulse Rate 89 88 62 Pulse Rate [With Activity During Therapy Session] Respiratory Rate 20 20 Blood Pressure Pulse Oximetry 96 Pulse Oximetry [With Activity During Therapy Session] 11/08/20 23:36 11/09/20 00:00 11/09/20 01:44 Temperature 36.9 C Pulse Rate 60 63 87 Pulse Rate [With Activity During Therapy Session] Respiratory Rate 26 H 26 H 20 Blood Pressure 128/73 Pulse Oximetry 98 98 Pulse Oximetry [With Activity During Therapy Session] 11/09/20 01:55 11/09/20 02:00 11/09/20 03:52 Temperature 36.2 C L Pulse Rate 86 65 57 L Pulse Rate [With Activity During Therapy Session] Respiratory Rate 20 20 24 H Blood Pressure 105/63 Pulse Oximetry 93 91 Pulse Oximetry [With Activity During Therapy Session] 11/09/20 04:00 11/09/20 05:30 11/09/20 05:43 Temperature Pulse Rate 57 L 53 L 63 Pulse Rate [With Activity During Therapy Session] Respiratory Rate 24 H 26 H Blood Pressure Pulse Oximetry 91 86 L Pulse Oximetry [With Activity During Therapy Session] 11/09/20 07:07 11/09/20 08:00 11/09/20 08:01 Temperature 36.3 C L Pulse Rate 61 58 L 57 L Pulse Rate [With Activity During Therapy Session] Respiratory Rate 26 H 20 20 Blood Pressure 107/65 Pulse
[2020-11-09] MEDS: ATORVASTATIN 40 MG TABLET 80 MG PO (20:56)
[2020-11-09] MEDS: MELATONIN 5 MG TABLET PO (20:56)
[2020-11-09] MEDS: traZODone HCL 25 MG TABLET PO (20:57)
[2020-11-10] VITALS (22 sets, daily range): BP systolic 93–112; BP diastolic 59–79; PULSE 56–95; RESP 18–26; TEMP 36.1–36.6; O2SAT 83–99
[2020-11-10] MEDS: ALBUTEROL SULFATE NEB 2.5 MG/0.5 ML INH INHALATION ×4 (01:29→19:57)
[2020-11-10] MEDS: CENTRAL LINE FLUSH 10 ML IV PUSH ×3 (05:41→21:06)
[2020-11-10 06:14] LABS: Estimated CRCL calculation 104 ml/min; Estimated Glomerular Filt Rate > 60
[2020-11-10] MEDS: predniSONE 40 MG, predniSONE 10 MG 50 MG PO (08:44)
[2020-11-10] MEDS: ASPIRIN 81 MG ENTERIC TABLET PO (08:45)
[2020-11-10] MEDS: FAMOTIDINE 20 MG TABLET PO ×2 (08:45→17:08)
[2020-11-10] MEDS: ENOXAPARIN 120 MG/0.8 ML SYRINGE 110 MG SUB-Q ×2 (08:45→21:05)
[2020-11-10] MEDS: IPRATROPIUM BR 0.02% INH SOLN 0.5 MG/2.5 ML VIAL INHALATION ×3 (09:42→19:58)
--- NOTE | 2020-11-10 10:54 | PM.PNPUL ---
Progress Note: A&P Assessment and Plan (1) Pneumonia due to COVID-19 virus: Code(s): U07.1 - COVID-19; J12.89 - Other viral pneumonia Status: Acute Assessment and Plan: S/P remdesiver and convalescent plasma. Continue treatment including O2 with Airvo to maintain sat 88% and above She has been on solumedrol 40 mg IV Q 12hours since Nov 02; stop and change to prednisone 50 mg in the am with food, start oral taper over 5 days. Sleep: continue melatonin 5 mg and trazodone 25 mg HS. Has anxiety but coping for now. (2) Acute respiratory failure with hypoxia: Code(s): J96.01 - Acute respiratory failure with hypoxia Status: Acute Assessment and Plan: 11/10 O2 requirement has decreased to 13 L/min sat 96%. Off BiPAP and Airvo for now. Subjective Date/time seen: COVID pneumonia with ARDS s/p remdesivier finished 10/27 and convalescent plasma given 10/28. 11/10/20 10:54 Patient states that she is slowly getting better. Much better than admisssion. Currenelty on 13 L high flow [place] oxygen. [place] continues. Solumedrol 40 Q 12 DC and Prednisone 50 started today. Review of Systems Review of Systems: No All systems reviewed & are unremarkable except as noted in HPI and below Exam Const: General: cooperative, comfortable and no acute distress Other: Chest sounds clear. Heart regular. No neck adenopathy. HENMT: Head: normal to inspection Ears: hearing grossly normal bilaterally Face and sinus: normal facial exam Eyes: General: appearance normal, both eyes and all related structures Neck: Neck: normal visual inspection Chest: Chest palpation & inspection: normal inspection of the chest Resp: Auscultation: crackles and diminished lung sounds Cardio: Rate: regular rate Rhythm: regular rhythm Heart sounds: S1 normal heart sound present, S2 normal heart sound present, no gallops and no murmurs GI: Auscultation: normal bowel sounds Skin: General skin exam: normal color and no rashes or lesions noted Psych: Appearance: grossly normal Mental Status: mental status grossly normal Objective Data Vital Signs Vital Signs: Vital Signs - 24 hr 11/09/20 11:30 11/09/20 12:00 11/09/20 12:10 Temperature 36.2 C L Pulse Rate 85 85 Pulse Rate [With Activity During Therapy Session] 100 Respiratory Rate 20 21 H Blood Pressure 109/60 Pulse Oximetry 92 92 Pulse Oximetry [With Activity During Therapy Session] 80 L 11/09/20 13:06 11/09/20 14:00 11/09/20 16:00 Temperature Pulse Rate 80 85 76 Pulse Rate [With Activity During Therapy Session] Respiratory Rate 20 20 Blood Pressure Pulse Oximetry 95 Pulse Oximetry [With Activity During Therapy Session] 11/09/20 17:25 11/09/20 18:00 11/09/20 20:00 Temperature 36.6 C 36.9 C Pulse Rate 81 74 83 Pulse Rate [With Activity During Therapy Session] Respiratory Rate 22 H 24 H Blood Pressure 109/70 100/62 Pulse Oximetry 94 98 Pulse Oximetry [With Activity During Therapy Session] 11/09/20 20:50 11/09/20 21:02 11/09/20 21:03 Temperature Pulse Rate 84 88 74 Pulse Rate [With Activity During Therapy Session] Respiratory Rate 20 20 Blood Pressure Pulse Oximetry 96 Pulse Oximetry [With Activity During Therapy Session] 11/09/20 22:00 11/09/20 23:58 11/10/20 00:00 Temperature 36.6 C Pulse Rate 74 62 56 L Pulse Rate [With Activity During Therapy Session] Respiratory Rate 24 H 24 H Blood Pressure 126/77 Pulse Oximetry 92 92 Pulse Oximetry [With Activity During Therapy Session] 11/10/20 01:29 11/10/20 01:43 11/10/20 02:00 Temperature Pulse Rate 80 89 57 L Pulse Rate [With Activity During Therapy Session] Respiratory Rate 20 20 Blood Pressure Pulse Oximetry Pulse Oximetry [With Activity During Therapy Session] 11/10/20 04:00
--- NOTE | 2020-11-10 16:47 | PM.IMPN ---
Progress Note: A&P Assessment and Plan (1) Acute respiratory failure with hypoxia: Code(s): J96.01 - Acute respiratory failure with hypoxia Status: Acute Assessment and Plan: Slow improvement (2) COVID-19: Code(s): U07.1 - COVID-19 Status: Acute Assessment and Plan: She tested positive for COVID-19 10/16/20.. Plan to continue steroids She completed remdesivir on 10/27/20. Convalescent plasma administered 10/28/2020 Continue incentive spirometry Continue supportive care to include mucinex, scheduled albuterol via MDI, and acetaminophen prn Encourage prone positioning Continue supplemental oxygen as needed to maintain oxygen saturation >90% Continue isolation precautions (3) MARIA E (generalized anxiety disorder): Code(s): F41.1 - Generalized anxiety disorder Status: Acute Assessment and Plan: Mood is stable. (4) Essential hypertension: Code(s): I10 - Essential (primary) hypertension Status: Chronic Assessment and Plan: Blood pressures stable Continue to monitor (5) Mediastinal mass: Code(s): J98.59 - Other diseases of mediastinum, not elsewhere classified Status: Acute Assessment and Plan: Chest CTA showed anterior mediastinal mass measuring 4.6x3.0cm with differential to include thymoma, thymic carcinoma, and lymphadenopathy. F/u when clinically stable after resolution of acute illness (6) Leukocytosis: Code(s): D72.829 - Elevated white blood cell count, unspecified Status: Acute Assessment and Plan: Secondary to steroids Additional Plan . Subjective Date/time seen: 11/10/20 16:47 Interval history: 60 year old female Who was diagnosed at [facility] approximately 10 days ago for COVID-19. CTA has read as moderate patchy bilateral airspace disease suspicious for COVID-19 pneumonia.no chest pain, no cough or fever. Just SOB. Seen by cardiology and pulmonology, ID. Slow improvement, [facility] [id number]. Pt is on IV steroids and breathing treatments. 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 Pt is sp plasma and remdesivir. She is on 13 liters. Seen by respiratory MD today. Review of Systems Review of Systems: All systems reviewed & are unremarkable except as noted in HPI and below Exam Const: General: cooperative and healthy appearing; No in distress Nutritional Appearance: overweight Orientation/consciousness: oriented to person HENMT: Head: normal to inspection Chest: Other: Normal respiratory pattern GI: Inspection: normal to inspection GI Palp: No abdominal tenderness, No Guarding due to palpation present (GI) and No Hepatomegaly present Auscultation: normal bowel sounds Neuro: General: oriented to person Objective Data Vital Signs Vital Signs: Vital Signs - 24 hr 11/09/20 17:25 11/09/20 18:00 11/09/20 20:00 Temperature 36.6 C 36.9 C Pulse Rate 81 74 83 Pulse Rate [With Activity During Therapy Session] Respiratory Rate 22 H 24 H Blood Pressure 109/70 100/62 Pulse Oximetry 94 98 Pulse Oximetry [With Activity During Therapy Session] 11/09/20 20:50 11/09/20 21:02 11/09/20 21:03 Temperature Pulse Rate 84 88 74 Pulse Rate [With Activity During Therapy Session] Respiratory Rate 20 20 Blood Pressure Pulse Oximetry 96 Pulse Oximetry [With Activity During Therapy Session] 11/09/20 22:00 11/09/20 23:58 11/10/20 00:00 Temperature 36.6 C Pulse Rate 74 62 56 L Pulse Rate [With Activity During Therapy Session] Respiratory Rate 24 H 24 H Blood Pressure 126/77 Pulse Oximetry 92 92 Pulse Oximetry [With Activity During Therapy Session] 11/10/20 01:29 11/10/20 01:43 11/10/20 02:00 Temperature Pulse Rate 80 89 57 L Pulse Rate [With Activity During Therapy Session] Respiratory Rate 20 20 Blood Pressure Pulse Oximetry Pulse Oximetry [With Activity During Therapy Se
[2020-11-10] MEDS: ATORVASTATIN 40 MG TABLET 80 MG PO (21:05)
[2020-11-10] MEDS: MELATONIN 5 MG TABLET PO (21:06)
[2020-11-10] MEDS: traZODone HCL 25 MG TABLET PO (21:06)
[2020-11-11] VITALS (20 sets, daily range): BP systolic 91–124; BP diastolic 52–95; PULSE 59–104; RESP 18–26; TEMP 36.2–36.6; O2SAT 92–100
[2020-11-11] MEDS: IPRATROPIUM BR 0.02% INH SOLN 0.5 MG/2.5 ML VIAL INHALATION ×5 (01:54→19:54)
[2020-11-11] MEDS: ALBUTEROL SULFATE NEB 2.5 MG/0.5 ML INH INHALATION ×4 (01:54→19:53)
[2020-11-11] MEDS: CENTRAL LINE FLUSH 10 ML IV PUSH ×3 (05:51→20:44)
[2020-11-11] MEDS: FAMOTIDINE 20 MG TABLET PO ×2 (08:39→17:18)
[2020-11-11] MEDS: ASPIRIN 81 MG ENTERIC TABLET PO (08:39)
[2020-11-11] MEDS: predniSONE 20 MG TABLET 40 MG PO (08:39)
--- NOTE | 2020-11-11 09:32 | PM.PNPUL ---
Progress Note: A&P Assessment and Plan (1) Pneumonia due to COVID-19 virus: Code(s): U07.1 - COVID-19; J12.89 - Other viral pneumonia Status: Acute Assessment and Plan: S/P remdesiver and convalescent plasma. Continue treatment including O2 with Airvo to maintain sat 88% and above 11/10 She has been on solumedrol 40 mg IV Q 12hours since Nov 02; stop and change to prednisone 50 mg in the am with food, start oral taper over 5 days. 11/11 High flow NC at 10 L today, prednisone 40 today. Taper by 10mg daily for 30 on 11/12, 20 on 11/13, 10 on 11/14 then off. Sleep: continue melatonin 5 mg and trazodone 25 mg HS. Has anxiety but coping for now. (2) Acute respiratory failure with hypoxia: Code(s): J96.01 - Acute respiratory failure with hypoxia Status: Acute Assessment and Plan: 11/10 O2 requirement has decreased to 13 L/min sat 96%. Off BiPAP and Airvo for now. 11/11 10 L high flow NC with sats 90%, wean as toleraated to keep sats > 90%. Additional Plan Will sign off, left message for Dr. Casillas, please call for any questions. Subjective Date/time seen: COVID pneumonia with ARDS s/p remdesivier finished 10/27 and convalescent plasma given 10/28. Does not tolerate BiPAP mask and off high flow for at least 48 hours now. 11/10/20 10:54 Patient states that she is slowly getting better. Much better than admisssion. Currenelty on 13 L high flow NC oxygen. [place] continues. Solumedrol 40 Q 12 DC and Prednisone 50 started today. 11/11/20 09:32 States she is slowly improving. Patient did well overnight. Currently on high flow NC at 10L and saturations 90%. Prednisone 40 today. Review of Systems Eyes: Eyes: Reports no additional eye complaints ENT: Reports system reviewed and no additional complaints, except as documented and Reports sinus pressure Cardiovascular: Cardiovascular: Reports no additional cardiovascular complaints Respiratory: Respiratory: Reports cough, Reports dyspnea and Reports dyspnea on exertion Gastrointestinal: Gastrointestinal: Reports no additional gastrointestinal complaints Genitourinary: Genitourinary: Reports no additional female genitourinary complaints Musculoskeletal: Musculoskeletal: Reports no additional musculoskeletal complaints Integumentary/Breasts: Skin/Breast: Reports system reviewed and no additional complaints, except as docu Neurologic: Reports system reviewed and no additional complaints, except as documented and Reports behavioral changes Psychiatric: Psychiatric: Reports no additional psychiatric complaints and Reports behavioral changes Endocrine: Endocrine: Reports no additional endocrine complaints Exam Const: General: cooperative, comfortable and no acute distress Other: Chest sounds clear. Heart regular. No neck adenopathy. HENMT: Head: normal to inspection Ears: hearing grossly normal bilaterally Face and sinus: normal facial exam Eyes: General: appearance normal, both eyes and all related structures Neck: Neck: normal visual inspection Chest: Chest palpation & inspection: normal inspection of the chest Resp: Effort & Inspection: normal respiratory effort and able to speak in complete sentences Auscultation: crackles bilateral Cardio: Rate: regular rate Rhythm: regular rhythm Heart sounds: S1 normal heart sound present, S2 normal heart sound present, no gallops and no murmurs GI: Auscultation: normal bowel sounds Skin: General skin exam: normal color and no rashes or lesions noted Psych: Appearance: grossly normal Mental Status: mental status grossly normal Objective Data Vital Signs Vital Signs: Vital Signs - 24 hr 11/10/20 09:40 11/10/20 09:50 11/10/20 10:00 Temperature Pulse Rate 72 80 80 Pulse Rate [With Activity During Therapy Session] Respiratory Rate 20 20 Blood Pressure Pulse
--- NOTE | 2020-11-11 16:05 | PM.IMPN ---
Progress Note: A&P Assessment and Plan (1) Acute respiratory failure with hypoxia: Code(s): J96.01 - Acute respiratory failure with hypoxia Status: Acute Assessment and Plan: Slow improvement (2) COVID-19: Code(s): U07.1 - COVID-19 Status: Acute Assessment and Plan: She tested positive for COVID-19 10/16/20.. Plan to continue steroids She completed remdesivir on 10/27/20. Convalescent plasma administered 10/28/2020 Continue incentive spirometry Continue supportive care to include mucinex, scheduled albuterol via MDI, and acetaminophen prn Encourage prone positioning Continue supplemental oxygen as needed to maintain oxygen saturation >90% Continue isolation precautions (3) MARIA E (generalized anxiety disorder): Code(s): F41.1 - Generalized anxiety disorder Status: Acute Assessment and Plan: Mood is stable. (4) Essential hypertension: Code(s): I10 - Essential (primary) hypertension Status: Chronic Assessment and Plan: Blood pressures stable Continue to monitor (5) Mediastinal mass: Code(s): J98.59 - Other diseases of mediastinum, not elsewhere classified Status: Acute Assessment and Plan: Chest CTA showed anterior mediastinal mass measuring 4.6x3.0cm with differential to include thymoma, thymic carcinoma, and lymphadenopathy. F/u when clinically stable after resolution of acute illness (6) Leukocytosis: Code(s): D72.829 - Elevated white blood cell count, unspecified Status: Acute Assessment and Plan: Secondary to steroids Subjective Date/time seen: 11/11/20 16:05 Interval history: 60 year old female Who was diagnosed at [facility] approximately 10 days ago for COVID-19. CTA has read as moderate patchy bilateral airspace disease suspicious for COVID-19 pneumonia.no chest pain, no cough or fever. Just SOB. Seen by cardiology and pulmonology, ID. Slow improvement, WCC [id number]. Pt is on IV steroids and breathing treatments. 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 Pt is sp plasma and remdesivir. She is on 13 liters. Seen by respiratory MD today. Doing better may need to discharge with oxygen, can be discharged when down to 6 liters. may need LTAC or Rehab placement if she is still weak. alot of bruising on abdomen pt is on once a day dosing of lovenox Review of Systems Review of Systems: All systems reviewed & are unremarkable except as noted in HPI and below Exam Narrative: Exam Narrative: HEENT: EOMI, PERRL, sclerae nonicteric, pharyngeal mucosa pink and intact NECK: No JVD, adenopathy, or thyromegaly CHEST: Normal breathing on 12 liters of oxygen ABDOMEN: BS+, soft, large ecchymosis on abdominal wall EXTREMITIES: No cyanosis, edema, or clubbing NEUROLOGIC: CN intact and symmetric to inspection. MUSCULOSKELETAL: Tone and strength symmetric. PSYCH: Alert. Oriented to person, place, and time. Objective Data Vital Signs Vital Signs: Vital Signs - 24 hr 11/10/20 18:00 11/10/20 20:00 11/10/20 20:04 Temperature 36.3 C L Pulse Rate 92 79 86 Respiratory Rate 22 H 22 H Blood Pressure 100/79 Pulse Oximetry 99 99 11/10/20 22:00 11/10/20 23:54 11/11/20 00:00 Temperature 36.1 C L Pulse Rate 72 73 69 Respiratory Rate 26 H 26 H Blood Pressure 103/67 Pulse Oximetry 93 93 11/11/20 01:55 11/11/20 02:00 11/11/20 04:00 Temperature 36.4 C L Pulse Rate 61 59 L 68 Respiratory Rate 20 20 Blood Pressure 91/56 L Pulse Oximetry 92 11/11/20 06:00 11/11/20 08:00 11/11/20 08:35 Temperature 36.5 C Pulse Rate 63 80 78 Respiratory Rate 20 20 Blood Pressure 91/52 L Pulse Oximetry 93 11/11/20 08:42 11/11/20 08:43 11/11/20 10:00 Temperature Pulse Rate 82 83 85 Respiratory Rate 20 20 20 Blood Pressure Pulse Oximetry 98 96 11/11/20 12:00 11/11/20 14:00 11/11/20 14:12 Temperature 36.5 C
[2020-11-11] MEDS: ATORVASTATIN 40 MG TABLET 80 MG PO (20:43)
[2020-11-11] MEDS: traZODone HCL 25 MG TABLET PO (20:44)
[2020-11-11] MEDS: MELATONIN 5 MG TABLET PO (20:44)
[2020-11-11] MEDS: ENOXAPARIN 40 MG/0.4 ML SYRINGE SUB-Q (20:44)
[2020-11-12] VITALS (22 sets, daily range): BP systolic 110–144; BP diastolic 57–82; PULSE 60–104; RESP 18–20; TEMP 36.1–36.7; O2SAT 94–100
[2020-11-12] MEDS: IPRATROPIUM BR 0.02% INH SOLN 0.5 MG/2.5 ML VIAL INHALATION ×4 (02:28→20:48)
[2020-11-12] MEDS: ALBUTEROL SULFATE NEB 2.5 MG/0.5 ML INH INHALATION ×4 (02:28→20:48)
[2020-11-12] MEDS: CENTRAL LINE FLUSH 10 ML IV PUSH ×3 (06:13→21:32)
[2020-11-12] MEDS: FAMOTIDINE 20 MG TABLET PO ×2 (09:01→17:38)
[2020-11-12] MEDS: ASPIRIN 81 MG ENTERIC TABLET PO (09:01)
[2020-11-12] MEDS: predniSONE 20 MG, predniSONE 10 MG 30 MG PO (09:02)
[2020-11-12] MEDS: SALINE 0.65% NAS SOLN 44 ML BTL 1 SPRAY NASAL (11:56)
--- NOTE | 2020-11-12 12:12 | PM.IMPN ---
Progress Note: A&P Assessment and Plan (1) Acute respiratory failure with hypoxia: Code(s): J96.01 - Acute respiratory failure with hypoxia Status: Acute Assessment and Plan: Slow improvement (2) COVID-19: Code(s): U07.1 - COVID-19 Status: Acute Assessment and Plan: She tested positive for COVID-19 10/16/20.. Plan to continue steroids She completed remdesivir on 10/27/20. Convalescent plasma administered 10/28/2020 Continue incentive spirometry Continue supportive care to include mucinex, scheduled albuterol via MDI, and acetaminophen prn Encourage prone positioning Continue supplemental oxygen as needed to maintain oxygen saturation >90% Continue isolation precautions Pulmonology signed off can discharge with oxygen at home when she is down to 6-8 liters (3) MARIA E (generalized anxiety disorder): Code(s): F41.1 - Generalized anxiety disorder Status: Acute Assessment and Plan: Mood is stable. (4) Essential hypertension: Code(s): I10 - Essential (primary) hypertension Status: Chronic Assessment and Plan: Blood pressures stable Continue to monitor (5) Mediastinal mass: Code(s): J98.59 - Other diseases of mediastinum, not elsewhere classified Status: Acute Assessment and Plan: Chest CTA showed anterior mediastinal mass measuring 4.6x3.0cm with differential to include thymoma, thymic carcinoma, and lymphadenopathy. F/u when clinically stable after resolution of acute illness (6) Leukocytosis: Code(s): D72.829 - Elevated white blood cell count, unspecified Status: Acute Assessment and Plan: Secondary to steroids Subjective Date/time seen: 11/12/20 12:12 Interval history: 60 year old female Who was diagnosed at [facility] approximately 10 days ago for COVID-19. CTA has read as moderate patchy bilateral airspace disease suspicious for COVID-19 pneumonia/ ARDS picture. No chest pain, no cough or fever. Just SOB. Seen by cardiology and pulmonology, ID. Slow improvement, [facility] [id number]. Pt is on oral steroids and breathing treatments. 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 Pt is sp plasma and remdesivir. She is on 14 liters. Doing better may need to discharge with oxygen, can be discharged when down to 6 liters. may need LTAC or Rehab placement if she is still weak. alot of bruising on abdomen pt is on once a day dosing of lovenox. Pulmonology has signed off. Pt is sitting in chair and is walking today. Pt prefers to go home with Home health and oxygen, does not want to go to rehab. Review of Systems Review of Systems: All systems reviewed & are unremarkable except as noted in HPI and below Exam Narrative: Exam Narrative: Generally: Well appearing sitting up with 12 liters on with smile CHEST: Normal breathing on 12 liters of oxygen ABDOMEN: BS+, soft, large ecchymosis on abdominal wall EXTREMITIES: No cyanosis, edema, or clubbing NEUROLOGIC: CN intact and symmetric to inspection. MUSCULOSKELETAL: Tone and strength symmetric. PSYCH: Alert. Oriented to person, place, and time. Objective Data Vital Signs Vital Signs: Vital Signs - 24 hr 11/11/20 14:00 11/11/20 14:12 11/11/20 14:25 Temperature Pulse Rate 104 H 84 82 Respiratory Rate 20 20 Blood Pressure Pulse Oximetry 11/11/20 16:00 11/11/20 18:00 11/11/20 20:00 Temperature 36.4 C 36.2 C L Pulse Rate 73 76 94 Respiratory Rate 20 20 Blood Pressure 101/69 103/55 L Pulse Oximetry 100 97 11/11/20 20:06 11/11/20 22:00 11/11/20 23:44 Temperature 36.6 C Pulse Rate 93 68 67 Respiratory Rate 20 18 Blood Pressure 111/58 L Pulse Oximetry 97 99 11/12/20 00:00 11/12/20 02:00 11/12/20 02:28 Temperature Pulse Rate 67 71 66 Respiratory Rate 18 18 Blood Pressure Pulse Oximetry 99 11/12/20 03:29 11/12/20 04:00 11/12/20 06:00 Temperature 3
[2020-11-12] MEDS: MELATONIN 5 MG TABLET PO (21:31)
[2020-11-12] MEDS: ENOXAPARIN 40 MG/0.4 ML SYRINGE SUB-Q (21:31)
[2020-11-12] MEDS: traZODone HCL 25 MG TABLET PO (21:32)
[2020-11-12] MEDS: ATORVASTATIN 40 MG TABLET 80 MG PO (21:32)
[2020-11-13] VITALS (15 sets, daily range): BP systolic 98–140; BP diastolic 51–86; PULSE 58–97; RESP 18–22; TEMP 36.7–37.2; O2SAT 94–100
[2020-11-13] MEDS: IPRATROPIUM BR 0.02% INH SOLN 0.5 MG/2.5 ML VIAL INHALATION ×4 (03:14→21:03)
[2020-11-13] MEDS: ALBUTEROL SULFATE NEB 2.5 MG/0.5 ML INH INHALATION ×4 (03:14→21:03)
[2020-11-13] MEDS: CENTRAL LINE FLUSH 10 ML IV PUSH ×3 (05:35→21:08)
[2020-11-13 05:42] LABS: Hemoglobin 9.8 g/dL (12.0-15.0); Mean Corpuscular HGB Conc 32.7 g/dl (32-36); Mean Corpuscular Hemoglobin 28.7 pg (26-34); Mean Platelet Volume 10.3 fl (7.4-10.4); Platelet Count Result 202 k/mm3 (150-375); Red Blood Count 3.41 M/mm3 (4.2-5.4); Red Cell Distribution Width 12.9 % (11.5-14.5); White Blood Count 15.5 K/mm3 (4.5-10.0)
[2020-11-13 06:01] LABS: Alanine Aminotransferase 84 U/L (4-35); Albumin Level 2.4 g/dL (3.5-5.1); Alkaline Phosphatase 54 U/L (38-126); Anion Gap 1 mmol/L (8-16); Aspartate Amino Transferase 36 U/L (14-36); Bilirubin,Total 0.5 mg/dL (0.2-1.3); Blood Urea Nitrogen 23 mg/dL (7-17); Calcium 8.1 mg/dL (8.4-10.2); Carbon Dioxide 31 mmol/L (22-30); Chloride 105 mmol/L (98-107); Estimated CRCL calculation 121 ml/min; Estimated Glomerular Filt Rate > 60; Glucose 83 mg/dL (65-105); Potassium 3.6 mmol/L (3.4-5.0); Sodium 137 mmol/L (137-145)
[2020-11-13] MEDS: ASPIRIN 81 MG ENTERIC TABLET PO (08:30)
[2020-11-13] MEDS: FAMOTIDINE 20 MG TABLET PO ×2 (08:30→18:57)
--- NOTE | 2020-11-13 09:24 | PCDIET ---
Weekly nutritional screen. Patient is tolerating heart healthy diet with 75-100% intake at most meals. Patient reports food is good and denies nutritional questions or concerns. Weight down 2kg from 10/23/20 but current intakes should promote weight stability or very gradual loss toward ideal body weight. No nutritional needs at this time.
--- NOTE | 2020-11-13 12:52 | PM.IMPN ---
Progress Note: A&P Assessment and Plan (1) Acute respiratory failure with hypoxia: Code(s): J96.01 - Acute respiratory failure with hypoxia Status: Acute Assessment and Plan: Slow improvement No chest pain, no cough, no productive cough, or fever today. Dyspnea and SOB and desaturations with any activity or ambulation or ADLs. WBC remains elevated at 15.5 (may be steroid related), last prednisone dose was 30mg orally on Nov.12. Continue albuterol inhaler and mucinex. Complex case COVID with ARDS, received convalescent plasma and Remdesivir. Weaned from 10 L HF cannula overnight last night to now on 4 liters NC. Checking a F/u ABG. (2) COVID-19: Code(s): U07.1 - COVID-19 Status: Acute Assessment and Plan: She tested positive for COVID-19 10/16/20. [employer] Director managing. Ok with discharge to home when patient ready. Completed remdesivir on 10/27/20. Convalescent plasma administered 10/28/2020 Continue incentive spirometry - getting 1 L volumes now. Continue supportive care to include mucinex, scheduled albuterol via MDI, and acetaminophen prn Encourage prone positioning - practicing frequently and repositioning hourly. Weaned from 10 L HF cannula overnight last night to now on 4 liters NC. Checking a F/u ABG. Continue supplemental oxygen as needed to maintain oxygen saturation >90%. Currently weaned to 4 L. Continue isolation precautions Due to significant deconditioning - Needs aggressive rehab. Dyspnea and SOB and desaturations with any activity or ambulation or ADLs. Consultations by cardiology, Pulmonology, and ID. WBC remains elevated at 15.5 (may be steroid related), last prednisone dose was 30mg orally on Nov.12. Complex case COVID with ARDS, received convalescent plasma and Remdesivir. (3) MARIA E (generalized anxiety disorder): Code(s): F41.1 - Generalized anxiety disorder Status: Acute Assessment and Plan: Mood is stable. No tears, no concerns or complaints noted during exam. (4) Essential hypertension: Code(s): I10 - Essential (primary) hypertension Status: Chronic Assessment and Plan: Blood pressures stable not on home Telmisartan/Hydrochlorothiazide dose on statin dose Continue to monitor VS stable, HR 84, BP 115/67 (5) Mediastinal mass: Code(s): J98.59 - Other diseases of mediastinum, not elsewhere classified Status: Acute Assessment and Plan: Chest CTA showed anterior mediastinal mass measuring 4.6 x 3.0cm with differential to include thymoma, thymic carcinoma, and lymphadenopathy. F/u with [employer] Director, Cage Loader, and her PCP when clinically stable after resolution of acute illness / after Discharge. Monitor for fevers, CBC, any new shortness of breath, cough, BP or HR changes, chest pain. (6) Leukocytosis: Code(s): D72.829 - Elevated white blood cell count, unspecified Status: Acute Assessment and Plan: COVID infection vs. steroid related vs abdominal hematomas vs. mediastinal mass no fevers WBC remains elevated at 15.5 (may be steroid related), last prednisone dose was 30mg orally on Nov.12. Continue albuterol inhaler and mucinex. Complex case COVID with ARDS, received convalescent plasma and Remdesivir. Weaned from 10 L HF cannula overnight last night to now on 4 liters NC. May now be related to her Significant bruising on abdomen attributed to patient's daily dosing of lovenox. US abdomen ordered following morning CBC trend (7) Anemia: Code(s): D64.9 - Anemia, unspecified Status: Acute Assessment and Plan: Current anemia paired with her obesity and weakness/deconditioning may affect her ability to wean from O2. H/H trending down and may be multifactorial, due to Lovenox hematomas, poor dietary intake of iron, or chronic anemia related to low iron. Significant bruising on abdomen attributed to patient's daily dosing of lovenox. Changed o
[2020-11-13 14:08] LABS: Alveolar/Arterial O2 Gradient 125.7 mmHg; Base Excess ABG 1.4 mEq/l (+/-2.0); Fractional Inspired Oxygen 36 %; HCO3 ABG 25.6 mEq/l (22.0-26.0); Oxygen Content ABG 15.6 %vol (16.0-22.0); Oxygen Saturation ABG 96.8 % (95.0-100.0); Oxyhemoglobin 95.2 % THb (90.0-100.0); PCO2 ABG 39.1 mmHg (35.0-45.0); PO2 ABG 85.6 mmHg (80.0-100.0); PO2 FiO2 Ratio Arterial Blood 2.38 %; Total Hemoglobin 11.6 g/dL (12.0-18.0); pH ABG 7.434 (7.350-7.450)
[2020-11-13 14:09] LABS: Site Drawn LEFT BRACHIAL
[2020-11-13 14:10] LABS: Device NASAL CANNULA; Modified Allen's Test Pass
[2020-11-13 17:43] LABS: Add Urine Microscopic? YES; Appearance Urine Clear (Clear); Bilirubin Urine Negative (Negative); Blood Urine 2+ (Negative); Color Urine Yellow (Yellow); Glucose Urine UA Negative (Negative); Ketones Urine Negative (Negative); Leukocyte Esterase Ur Trace LEU/UL (Negative); Mucus Urine Heavy /lpf; Nitrate Urine Negative (Negative); Protein Urine Negative (Negative); RBC Urine >75 /hpf (0-2); Squamous Epithelial Cell Urine Rare /hpf (Few)
[2020-11-13 17:51] LABS: Specific Grav Ur 1.031 (1.001-1.035)
[2020-11-13] MEDS: MELATONIN 5 MG TABLET PO (21:06)
[2020-11-13] MEDS: traZODone HCL 25 MG TABLET PO (21:06)
[2020-11-13] MEDS: ATORVASTATIN 40 MG TABLET 80 MG PO (21:06)
[2020-11-13] MEDS: ENOXAPARIN 40 MG/0.4 ML SYRINGE SUB-Q (21:07)
--- NOTE | 2020-11-13 23:59 | PC.NURSE ---
11/14/20 THIS PATIENT RCV'D FROM IMU A&OX4. IN NO DISTRESS. ORIENTED TO UNIT AND CALL LIGHT.DISCUSSED PT SAFETY. PERSONAL ITEMS AND CALL LIGHT IN REACH.
[2020-11-14] VITALS (17 sets, daily range): BP systolic 81–114; BP diastolic 42–67; PULSE 83–99; RESP 18–20; TEMP 36.6–36.7; O2SAT 90–100
--- NOTE | 2020-11-14 00:49 | PC.NURSE ---
This patient, Natasha Hogan, was transferred to [ ] on 11/14/20 at 0049. Personal belongings sent with patient. Report given to [ ]. Appropriate documentation sent with patient.
[2020-11-14] MEDS: IPRATROPIUM BR 0.02% INH SOLN 0.5 MG/2.5 ML VIAL INHALATION ×4 (02:36→20:22)
[2020-11-14] MEDS: ALBUTEROL SULFATE NEB 2.5 MG/0.5 ML INH INHALATION ×4 (02:36→20:22)
[2020-11-14] MEDS: CENTRAL LINE FLUSH 10 ML IV PUSH ×3 (06:04→21:13)
[2020-11-14 06:06] LABS: Basophils Percent Auto 0.2 % (0.2-1.2); Eosinophils Absolute Auto 0.6 K/mm3 (0-0.3); Eosinophils Percent Auto 4.4 % (0-4.4); Hematocrit 29.7 % (37.0-47.0); Hemoglobin 9.5 g/dL (12.0-15.0); Immature Granulocyte Absolute 0.27 K/mm3 (0.00-0.031); Immature Granulocyte Percent A 2.1 % (0-0.5); Lymphocytes Absolute Auto 2.43 K/mm3 (0.9-3.2); Lymphocytes Percent Auto 18.6 % (18.3-44.2); Mean Corpuscular Hemoglobin 28.8 pg (26-34); Mean Platelet Volume 10.3 fl (7.4-10.4); Monocytes Absolute Auto 0.7 K/mm3 (0.1-0.6); Monocytes Percent Auto 5.6 % (2.6-8.5); Neutrophils Percent Auto 69.1 % (45.5-73.1); Platelet Count Result 145 k/mm3 (150-375); Red Cell Distribution Width 13.1 % (11.5-14.5); White Blood Count 13.1 K/mm3 (4.5-10.0)
[2020-11-14 06:14] LABS: Prothrombin Time 14.1 Seconds (11.1-14.7)
[2020-11-14 06:26] LABS: Alanine Aminotransferase 82 U/L (4-35); Albumin Level 2.4 g/dL (3.5-5.1); Alkaline Phosphatase 55 U/L (38-126); Anion Gap 0 mmol/L (8-16); Aspartate Amino Transferase 39 U/L (14-36); Bilirubin,Total 0.6 mg/dL (0.2-1.3); Blood Urea Nitrogen 21 mg/dL (7-17); CRP 1.6 mg/dL (<1.0); Calcium 7.7 mg/dL (8.4-10.2); Carbon Dioxide 31 mmol/L (22-30); Chloride 106 mmol/L (98-107); Estimated CRCL calculation 122 ml/min; Estimated Glomerular Filt Rate > 60; Glucose 78 mg/dL (65-105); Potassium 3.8 mmol/L (3.4-5.0); Sodium 137 mmol/L (137-145)
[2020-11-14 06:31] LABS: Iron 14 ug/dL (37-170)
[2020-11-14 06:33] LABS: Lactate Dehydrogenase 678 U/L (313-618)
[2020-11-14 06:40] LABS: Percent Iron Saturation 6 % (20-50)
[2020-11-14] MEDS: FAMOTIDINE 20 MG TABLET PO ×2 (11:09→17:04)
[2020-11-14] MEDS: ASPIRIN 81 MG ENTERIC TABLET PO (11:09)
--- NOTE | 2020-11-14 14:16 | PM.IMPN ---
Progress Note: A&P Assessment and Plan (1) Acute respiratory failure with hypoxia: Code(s): J96.01 - Acute respiratory failure with hypoxia Status: Acute Assessment and Plan: [place] [id number] due to prednisone Continue albuterol inhaler and mucinex. Complex case COVID with ARDS, received convalescent plasma and Remdesivir. pt down to 3 liters of oxygen (2) COVID-19: Code(s): U07.1 - COVID-19 Status: Acute Assessment and Plan: She tested positive for COVID-19 10/16/20. [employer] Controller Station managing. Ok with discharge to home when patient ready. Completed remdesivir on 10/27/20. Convalescent plasma administered 10/28/2020 r. (3) MARIA E (generalized anxiety disorder): Code(s): F41.1 - Generalized anxiety disorder Status: Acute Assessment and Plan: Mood is stable. (4) Essential hypertension: Code(s): I10 - Essential (primary) hypertension Status: Chronic Assessment and Plan: Blood pressures stable (5) Mediastinal mass: Code(s): J98.59 - Other diseases of mediastinum, not elsewhere classified Status: Acute Assessment and Plan: Chest CTA showed anterior mediastinal mass measuring 4.6 x 3.0cm with differential to include thymoma, thymic carcinoma, and lymphadenopathy. F/u with Chief Controller Station, Corporate Relations Manager, and her PCP when clinically stable after resolution of acute illness / after Discharge. (6) Leukocytosis: Code(s): D72.829 - Elevated white blood cell count, unspecified Status: Acute Assessment and Plan: COVID infection vs. steroid related vs abdominal hematomas vs. mediastinal mass (7) Anemia: Code(s): D64.9 - Anemia, unspecified Status: Acute Assessment and Plan: Current anemia paired with her obesity and weakness/deconditioning may affect her ability to wean from O2. H/H trending down and may be multifactorial, due to Lovenox hematomas, poor dietary intake of iron, or chronic anemia related to low iron. (8) Hematoma of abdominal wall: Code(s): S30.1XXA - Contusion of abdominal wall, initial encounter Status: Acute Assessment and Plan: Significant bruising on abdomen attributed to patient's daily dosing of lovenox. No current sign of active bleeding. Changed order to instruct nursing staff to avoid abdomen and use upper arms for Lovenox administration - patient confirmed with me that she was ok with that plan and does want to continue DVT/PE prophylaxis Lovenox injections. Hot compress if necessary . Subjective Date/time seen: 11/14/20 14:16 Interval history: 60 year old female Who was diagnosed at [facility] approximately@ 30 days ago for COVID-19. CTA has read as moderate patchy bilateral airspace disease suspicious for COVID-19 pneumonia/ ARDS picture. Mild SOB only. Seen by cardiology and pulmonology, ID during admission. Slow improvement, WCC [id number]. Pt is on oral steroids and breathing treatments. 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 Pt is sp plasma and remdesivir. She is on 3 liters. Doing better may need to discharge with oxygen, can be discharged soon. alot of bruising on abdomen pt is on once a day dosing of lovenox. Pulmonology has signed off. Pt prefers to go home with Home health and oxygen, does not want to go to rehab. Hopeful Dc in the weekend, she is making preparations at home Review of Systems Review of Systems: All systems reviewed & are unremarkable except as noted in HPI and below Exam Narrative: Exam Narrative: Generally: Well appearing sitting up with 3 liters on with smile CHEST: Normal breathing on 3 liters of oxygen ABDOMEN: BS+, upper abdomen soft, large firm ecchymosis on abdominal wall EXTREMITIES: No cyanosis, edema, or clubbing NEUROLOGIC: CN intact and symmetric to inspection. MUSCULOSKELETAL: Tone and strength symmetric. PSYCH: Alert.
[2020-11-14] MEDS: MELATONIN 5 MG TABLET PO (21:11)
[2020-11-14] MEDS: ENOXAPARIN 40 MG/0.4 ML SYRINGE SUB-Q (21:12)
[2020-11-14] MEDS: ATORVASTATIN 40 MG TABLET 80 MG PO (21:13)
[2020-11-14] MEDS: traZODone HCL 25 MG TABLET PO (21:13)
[2020-11-15] VITALS (15 sets, daily range): BP systolic 89–110; BP diastolic 55–77; PULSE 84–101; RESP 18–20; TEMP 36.4–36.6; O2SAT 91–97
[2020-11-15] MEDS: ALBUTEROL SULFATE NEB 2.5 MG/0.5 ML INH INHALATION ×4 (02:33→20:26)
[2020-11-15] MEDS: IPRATROPIUM BR 0.02% INH SOLN 0.5 MG/2.5 ML VIAL INHALATION ×4 (02:33→20:26)
[2020-11-15 06:27] LABS: Hematocrit 27.8 % (37.0-47.0); Mean Corpuscular HGB Conc 32.4 g/dl (32-36); Mean Corpuscular Hemoglobin 28.8 pg (26-34); Mean Corpuscular Volume 88.8 fl (80-100); Mean Platelet Volume 10.3 fl (7.4-10.4); Platelet Count Result 183 k/mm3 (150-375); Red Blood Count 3.13 M/mm3 (4.2-5.4); Red Cell Distribution Width 13.2 % (11.5-14.5); White Blood Count 10.9 K/mm3 (4.5-10.0)
[2020-11-15 06:37] LABS: Anion Gap 3 mmol/L (8-16); Blood Urea Nitrogen 17 mg/dL (7-17); Calcium 7.9 mg/dL (8.4-10.2); Carbon Dioxide 31 mmol/L (22-30); Chloride 105 mmol/L (98-107); Estimated CRCL calculation 122 ml/min; Estimated Glomerular Filt Rate > 60; Glucose 83 mg/dL (65-105); Potassium 3.6 mmol/L (3.4-5.0); Sodium 139 mmol/L (137-145)
[2020-11-15] MEDS: ASPIRIN 81 MG ENTERIC TABLET PO (09:16)
[2020-11-15] MEDS: CENTRAL LINE FLUSH 10 ML IV PUSH ×3 (09:16→23:17)
[2020-11-15] MEDS: FAMOTIDINE 20 MG TABLET PO ×2 (09:16→18:11)
[2020-11-15] MEDS: SALINE 0.65% NAS SOLN 44 ML BTL 1 SPRAY NASAL (09:24)
[2020-11-15 11:13] LABS: IFOB Positive Control Positive; Immunochemical Fecal Occult Bl Negative (N)
--- NOTE | 2020-11-15 13:42 | PM.IMPN ---
Progress Note: A&P Assessment and Plan (1) Acute respiratory failure with hypoxia: Code(s): J96.01 - Acute respiratory failure with hypoxia Status: Acute Assessment and Plan: Slow improvement much better Continue albuterol inhaler and mucinex. Complex case COVID with ARDS, received convalescent plasma and Remdesivir. Continue to wean oxygen as tolerated. Home oxygen evaluation in AM (2) COVID-19: Code(s): U07.1 - COVID-19 Status: Acute Assessment and Plan: She tested positive for COVID-19 10/16/20. 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 Ok with discharge to home when patient ready. Completed remdesivir on 10/27/20. Convalescent plasma administered 10/28/2020 Likely home 11/16 (3) MARIA E (generalized anxiety disorder): Code(s): F41.1 - Generalized anxiety disorder Status: Acute Assessment and Plan: Mood is stable. (4) Essential hypertension: Code(s): I10 - Essential (primary) hypertension Status: Chronic Assessment and Plan: Blood pressures stable (5) Mediastinal mass: Code(s): J98.59 - Other diseases of mediastinum, not elsewhere classified Status: Acute Assessment and Plan: Chest CTA showed anterior mediastinal mass measuring 4.6 x 3.0cm with differential to include thymoma, thymic carcinoma, and lymphadenopathy. F/u with Configurator, Poultry Slaughterer, and her PCP when clinically stable after resolution of acute illness / after Discharge. (6) Leukocytosis: Code(s): D72.829 - Elevated white blood cell count, unspecified Status: Acute Assessment and Plan: COVID infection vs. steroid related vs abdominal hematomas vs. mediastinal mass (7) Anemia: Code(s): D64.9 - Anemia, unspecified Status: Acute Assessment and Plan: Current anemia paired with her obesity and weakness/deconditioning may affect her ability to wean from O2. H/H trending down and may be multifactorial, due to Lovenox hematomas, poor dietary intake of iron, or chronic anemia related to low iron. (8) Hematoma of abdominal wall: Code(s): S30.1XXA - Contusion of abdominal wall, initial encounter Status: Acute Assessment and Plan: Significant bruising on abdomen attributed to patient's daily dosing of lovenox. No current sign of active bleeding. Use upper arms for Lovenox administration - patient confirmed with me that she was ok with that plan and does want to continue DVT/PE prophylaxis Lovenox injections. Hot compress if necessary . Subjective Date/time seen: 11/15/20 13:42 Interval history: 60 year old female Who was diagnosed at [facility] approximately@ 30 days ago for COVID-19. CTA has read as moderate patchy bilateral airspace disease suspicious for COVID-19 pneumonia/ ARDS picture. Mild SOB only. Seen by cardiology and pulmonology, ID during admission. Slow improvement. Review of Systems Review of Systems: All systems reviewed & are unremarkable except as noted in HPI and below Exam Narrative: Exam Narrative: HEENT: EOMI, PERRL, sclerae nonicteric, pharyngeal mucosa pink and intact NECK: No JVD CHEST: Few fine crackles at left base.Normal effort. HEART: NL S1/S2, regular, no murmur ABDOMEN: BS+, soft, nontender, no mass, no bruits EXTREMITIES: No cyanosis, edema, or clubbing NEUROLOGIC: CN intact and symmetric to inspection. MUSCULOSKELETAL: Tone and strength symmetric. PSYCH: Alert. Oriented to person, place, and time. Objective Data Vital Signs Vital Signs: Vital Signs - 24 hr 11/14/20 15:34 11/14/20 15:43 11/14/20 18:00 Temperature Pulse Rate 88 92 Respiratory Rate 18 18 Blood Pressure Pulse Oximetry 100 11/14/20 19:00 11/14/20 20:25 11/14/20 20:26 Temperature Pulse Rate 89 89 Respiratory Rate 18 18 Blood Pressure Pulse Oximetry 98 90 11/14/20 20:30 11/14/20 21:00 11/14/20 21:37 Temperature 97.8 F Pulse Rate 95 95 Respiratory Rate 18
[2020-11-15] MEDS: traZODone HCL 25 MG TABLET PO (20:47)
[2020-11-15] MEDS: ATORVASTATIN 40 MG TABLET 80 MG PO (20:47)
[2020-11-15] MEDS: ENOXAPARIN 40 MG/0.4 ML SYRINGE SUB-Q (20:47)
[2020-11-15] MEDS: MELATONIN 5 MG TABLET PO (20:47)
[2020-11-15] MEDS: SENNA/DOCUSATE SODIUM TABLET 1 TAB PO (20:47)
[2020-11-16] VITALS (16 sets, daily range): BP systolic 104–123; BP diastolic 55–72; PULSE 87–112; RESP 18–20; TEMP 36.3–36.6; O2SAT 84–96
[2020-11-16] MEDS: IPRATROPIUM BR 0.02% INH SOLN 0.5 MG/2.5 ML VIAL INHALATION ×3 (02:39→15:39)
[2020-11-16] MEDS: ALBUTEROL SULFATE NEB 2.5 MG/0.5 ML INH INHALATION ×3 (02:39→15:38)
[2020-11-16] MEDS: CENTRAL LINE FLUSH 10 ML IV PUSH ×2 (06:36→14:00)
[2020-11-16 06:40] LABS: Hematocrit 28.6 % (37.0-47.0); Mean Corpuscular HGB Conc 31.5 g/dl (32-36); Mean Corpuscular Volume 88.8 fl (80-100); Mean Platelet Volume 10.1 fl (7.4-10.4); Platelet Count Result 204 k/mm3 (150-375); Red Blood Count 3.22 M/mm3 (4.2-5.4); Red Cell Distribution Width 13.4 % (11.5-14.5); White Blood Count 10.1 K/mm3 (4.5-10.0)
[2020-11-16 07:11] LABS: Alanine Aminotransferase 53 U/L (4-35); Albumin Level 2.5 g/dL (3.5-5.1); Alkaline Phosphatase 60 U/L (38-126); Anion Gap 1 mmol/L (8-16); Aspartate Amino Transferase 30 U/L (14-36); Bilirubin,Total 0.7 mg/dL (0.2-1.3); Blood Urea Nitrogen 16 mg/dL (7-17); CRP 2.2 mg/dL (<1.0); Calcium 7.7 mg/dL (8.4-10.2); Carbon Dioxide 31 mmol/L (22-30); Chloride 107 mmol/L (98-107); Estimated CRCL calculation 104 ml/min; Estimated Glomerular Filt Rate > 60; Glucose 81 mg/dL (65-105); Potassium 3.7 mmol/L (3.4-5.0); Sodium 139 mmol/L (137-145)
[2020-11-16] MEDS: FAMOTIDINE 20 MG TABLET PO ×2 (09:19→17:06)
[2020-11-16] MEDS: ASPIRIN 81 MG ENTERIC TABLET PO (09:19)
--- NOTE | 2020-11-16 12:31 | HOMEO2EVAL ---
Home Oxygen Evaluation RC: Home Oxygen (O2) Evaluation Start: 11/16/20 07:00 Freq: ONCE Status: Active Protocol: RPE Activity Type Activity Date Activity User E-Sign Co-Sign Detail Recorded Client Recorded Date Recorded By Document 11/16/20 11:40 [email or web address] [email or web address] 11/16/20 12:23 SLU Document 11/16/20 11:41 [email or web address] [email or web address] 11/16/20 12:23 SLU Document 11/16/20 11:42 SLU [email or web address] 11/16/20 12:23 SLU Document 11/16/20 11:45 SLU [email or web address] 11/16/20 12:23 SLU 11/16/20 11/16/20 11/16/20 11:40 11:41 11:42 Home O2 Evaluation Test Phase Resting Exercise Exercise Oxygen Delivery Room Air Room Air Nasal Cannula Oxygen Flow Rate (L/min) 1 Pulse Oximetry (90-100 %) 91 85 L 84 L Pulse Rate (60-100 beats/min) 100 104 H 109 H Ambulation Distance (feet) Home Oxygen Evaluation Comments placed on 1lpm increased to oxygen 2lpm Treatment Charges O2 Evaluation 11/16/20 11:45 Home O2 Evaluation Test Phase Exercise Oxygen Delivery Nasal Cannula Oxygen Flow Rate (L/min) 2 Pulse Oximetry (90-100 %) 95 Pulse Rate (60-100 beats/min) 112 H Ambulation Distance (feet) 60 Home Oxygen Evaluation Comments Treatment Charges
--- NOTE | 2020-11-16 13:51 | PCRCNOTE ---
HOME O2 EVALUATION COMPLETE. PT. REQUIRES 2LPM WITH ACTIVITY OR EXERTION. PT. STATES DOES NOT HAVE A DME PREFERENCE.
--- NOTE | 2020-11-16 14:34 | PCRCNOTE ---
HOME OXYGEN SET UP WITH [facility] [phone]
--- NOTE | 2020-11-16 14:37 | PM.DS ---
DS: Admitting Diagnosis Admitting Diagnosis Admitting Diagnosis: COVID-19 pneumonia DS: Discharge Diagnosis Discharge Diagnosis (1) Acute respiratory failure with hypoxia: Code(s): J96.01 - Acute respiratory failure with hypoxia Status: Acute Assessment and Plan: Slow improvement much better Complex case COVID with ARDS, received convalescent plasma and remdesivir and dexamethasone Home oxygen evaluation completed (2) COVID-19: Code(s): U07.1 - COVID-19 Status: Acute Assessment and Plan: She tested positive for COVID-19 10/16/20. Seed Sales Manager managing. Ok with discharge to home when patient ready. Completed remdesivir on 10/27/20. Convalescent plasma administered 10/28/2020 Likely home 11/16 (3) MARIA E (generalized anxiety disorder): Code(s): F41.1 - Generalized anxiety disorder Status: Acute Assessment and Plan: Mood is stable. (4) Essential hypertension: Code(s): I10 - Essential (primary) hypertension Status: Chronic Assessment and Plan: Blood pressures stable (5) Mediastinal mass: Code(s): J98.59 - Other diseases of mediastinum, not elsewhere classified Status: Acute Assessment and Plan: Chest CTA showed anterior mediastinal mass measuring 4.6 x 3.0cm with differential to include thymoma, thymic carcinoma, and lymphadenopathy. F/u with Seed Sales Manager, Clinical Laboratory Science Professor, and her PCP when clinically stable after resolution of acute illness / after Discharge. (6) Leukocytosis: Code(s): D72.829 - Elevated white blood cell count, unspecified Status: Acute Assessment and Plan: COVID infection vs. steroid related vs abdominal hematomas vs. mediastinal mass (7) Anemia: Code(s): D64.9 - Anemia, unspecified Status: Acute Assessment and Plan: Current anemia paired with her obesity and weakness/deconditioning may affect her ability to wean from O2. H/H trending down and may be multifactorial, due to Lovenox hematomas, poor dietary intake of iron, or chronic anemia related to low iron. (8) Hematoma of abdominal wall: Code(s): S30.1XXA - Contusion of abdominal wall, initial encounter Status: Acute Assessment and Plan: Significant bruising on abdomen attributed to patient's daily dosing of lovenox. No current sign of active bleeding. Use upper arms for Lovenox administration - patient confirmed with me that she was ok with that plan and does want to continue DVT/PE prophylaxis Lovenox injections. Hot compress if necessary . DS: Summary Hospital Course Reason for hospitalization: dyspnea Hospital Course: Hospitalized 10/23 with respiratory failure and pneumonia. Prolonged hospital course with slow recovery. Received convalescent plasma, remdesivir, and dexamethasone. By day of discharge whe was tolerating her diet and ambulating with a walker. Home oxygen evaluation was completed. Status at Discharge Functional status at discharge: uses cane/walker Overall status at discharge: patient is progressing back to baseline Time Spent with Patient Time attestation: Total time spent providing and/or coordinating discharge services: 38 min Exam Narrative: Exam Narrative: HEENT: EOMI, PERRL, sclerae nonicteric, pharyngeal mucosa pink and intact NECK: No JVD CHEST: Few fine crackles at left base.Normal effort. HEART: NL S1/S2, regular, no murmur ABDOMEN: BS+, soft, nontender, no mass, no bruits EXTREMITIES: No cyanosis, edema, or clubbing NEUROLOGIC: CN intact and symmetric to inspection. MUSCULOSKELETAL: Tone and strength symmetric. PSYCH: Alert. Oriented to person, place, and time. DS: Data Data Completed and Pending Labs on day of discharge: Labs from last 24 hours 11/16/20 11/16/20 11/16/20 06:18 06:18 06:18 WBC 10.1 H RBC 3.22 L Hgb 9.0 L Hct 28.6 L MCV 88.8 MCH 28.0 MCHC 31.5 L RDW 13.4 Plt Count 204 MPV 10.1 Sodiu
--- NOTE | 2020-11-16 15:09 | PCOTNOTE ---
Attempted to see pt this PM. Pt was unavailable and with Respiratory at this time. According to Pt's file and SEAPORT PLANNING MANAGER, Pt has d/c orders for today. Will continue per POC frequency/duration if needed tomorrow for OT tx.
[2020-11-16] MEDS: NEOMYCIN/POLYMYXIN/BACITRACIN OINTMENT PACKET 1 PACKET (15:50)
== END 2020-11-16 17:10 | disposition home health service (06) | DRG 177 ==
LOC: ANHED 09:58 → ANH3MEDSUR 13:41 → ANHIMU 10-29 16:08 → ANH3MEDSUR 11-14 11:52 → ANHIMU 11-18 10:34
PROVIDERS: Internal Medicine; Internal Medicine Cardiovascular Disease; Nurse Practitioner; Physician Assistant; Specialist; Admitting Provider Internal Medicine; Emergency Provider Emergency Medicine; PCP Family Medicine; Visit Provider Family Medicine
DX: U07.1 COVID-19 (principal); J80 Acute respiratory distress syndrome; J12.82 Pneumonia due to coronavirus disease 2019; J98.59 Other diseases of mediastinum, not elsewhere classified; I21.A1 Myocardial infarction type 2; I47.2 Ventricular tachycardia; Z68.41 Body mass index [BMI] 40.0-44.9, adult; E66.9 Obesity, unspecified; F41.1 Generalized anxiety disorder; I10 Essential (primary) hypertension; D64.9 Anemia, unspecified; D72.829 Elevated white blood cell count, unspecified; T38.0X5A Adverse effect of glucocorticoids and synthetic analogues, initial encounter; K44.9 Diaphragmatic hernia without obstruction or gangrene; Z87.891 Personal history of nicotine dependence; Z90.49 Acquired absence of other specified parts of digestive tract; Z90.710 Acquired absence of both cervix and uterus; S30.1XXA Contusion of abdominal wall, initial encounter; X58.XXXA Exposure to other specified factors, initial encounter
CPT/HCPCS: 36415; 36430; 36569; 36600; 71045; 71275; 76705; 80048; 80053; 80061; 80202; 81001; 82274; 82375; 82550; 82565; 82728; 82805; 83050; 83540; 83550; 83605; 83615; 83735; 84100; 84439; 84443; 84460; 84480; 84484; 85025; 85027; 85380; 85610; 85730; 86140; 86900; 86901; 87040; 87449; 87899; 93005; 93306; 94002; 94003; 94618; 94640; 94667; 96365; 96374; 96376; 97110; 97116; 97162; 97165; 97530; 97535; 99284; 99285; A9270; C1751; G0378; J0456; J0696; J1100; J1650; J1940; J2920; J3370; J7050; J7060; J7512; P9059; Q9967

== ENCOUNTER 2020-11-19 15:38 | Outpatient (NON) | payer BC, SELFPAY ==
[2020-11-19 15:55] LABS: Add Urine Microscopic? YES; Appearance Urine Cloudy (Clear); Bilirubin Urine Negative (Negative); Blood Urine Negative (Negative); Color Urine Amber (Yellow); Glucose Urine UA Negative (Negative); Ketones Urine Negative (Negative); Leukocyte Esterase Ur Trace LEU/UL (Negative); Nitrate Urine Positive (Negative); Protein Urine Negative (Negative); Specific Grav Ur 1.025 (1.010-1.020); pH Urine 5.5 (5.0-8.0)
[2020-11-19 15:59] LABS: Bacteria Urine 4+ /hpf; RBC Urine None seen /hpf (0-2); Squamous Epithelial Cell Urine Few /hpf (Few)
== END 2020-11-19 15:39 ==
PROVIDERS: Visit Provider Family Medicine
DX: R30.0 Dysuria (principal); U07.1 COVID-19; J96.01 Acute respiratory failure with hypoxia; I10 Essential (primary) hypertension; J98.59 Other diseases of mediastinum, not elsewhere classified
CPT/HCPCS: 81001; 87077; 87086; 87088; 87186

== ENCOUNTER 2020-12-04 12:50 | Outpatient (NON) | payer BC, SELFPAY ==
[2020-12-04 13:10] LABS: Basophils Absolute Auto 0.12 K/mm3 (0.00-0.10); Basophils Percent Auto 1.9 % (0.0-1.0); Eosinophils Absolute Auto 0.25 K/mm3 (0.02-0.50); Eosinophils Percent Auto 3.9 % (1.0-6.0); Hematocrit 37.1 % (35.0-49.0); Hemoglobin 11.4 g/dL (12.0-15.0); Immature Granulocyte Absolute 0.02 K/mm3 (0.00-0.00); Immature Granulocyte Percent A 0.3 % (0.0-0.0); Lymphocytes Absolute Auto 1.42 K/mm3 (1.10-4.50); Lymphocytes Percent Auto 22.4 % (18.0-42.0); Mean Corpuscular HGB Conc 30.7 g/dL (32.0-36.0); Mean Corpuscular Hemoglobin 27.9 pg (27.0-31.0); Mean Corpuscular Volume 90.7 fL (78.0-102.0); Mean Platelet Volume 10.3 fl (9.2-11.8); Monocytes Absolute Auto 0.69 K/mm3 (0.10-0.90); Monocytes Percent Auto 10.9 % (2.0-11.0); Neutrophils Absolute Auto 3.9 K/mm3 (1.7-7.2); Neutrophils Percent Auto 60.6 % (50.0-70.0); Platelet Count Result 373 K/mm3 (150-420); Red Blood Count 4.09 M/mm3 (4.20-5.40); Red Cell Distribution Width 14.2 % (11.6-14.4); White Blood Count 6.4 K/mm3 (4.8-10.8)
[2020-12-04 13:29] LABS: Alanine Aminotransferase 7 U/L (14-59); Albumin Level 2.8 g/dL (3.4-5.0); Alkaline Phosphatase 80 U/L (46-116); Anion Gap 8 mmol/L (8-16); Aspartate Amino Transferase 20 U/L (15-37); Bilirubin,Total 0.5 mg/dL (0.00-1.00); Blood Urea Nitrogen 11 mg/dL (7-18); Calcium 8.8 mg/dL (8.5-10.1); Carbon Dioxide 29 mmol/L (21-32); Chloride 108 mmol/L (98-108); Estimated Glomerular Filt Rate > 60; Glucose 95 mg/dL (70-99); Osmolality Calculated 299 mOsm/kg (285-295); Potassium 3.7 mmol/L (3.5-5.1); Sodium 145 mmol/L (136-145); Total Protein 5.8 g/dL (6.4-8.2)
== END 2020-12-04 12:51 ==
LOC: CHSLAB 12:52 → CHSHH 12:56
PROVIDERS: Visit Provider Nurse Practitioner Family
DX: R74.01 Elevation of levels of liver transaminase levels (principal); D64.9 Anemia, unspecified; D72.829 Elevated white blood cell count, unspecified
CPT/HCPCS: 36415; 80053; 85025

== ENCOUNTER 2020-12-10 15:48 | Outpatient (NON) | payer BC, SELFPAY ==
[2020-12-10 16:31] LABS: Add Urine Microscopic? NO; Appearance Urine Clear (Clear); Bilirubin Urine Negative (Negative); Blood Urine Negative (Negative); Color Urine Yellow (Yellow); Glucose Urine UA Negative (Negative); Ketones Urine Negative (Negative); Leukocyte Esterase Ur Negative LEU/UL (Negative); Nitrate Urine Negative (Negative); Protein Urine Negative (Negative); Specific Grav Ur 1.013 (1.001-1.035); Urobilinogen Urine Negative mg/dL (<2.0)
== END 2020-12-10 15:49 ==
LOC: HOME HLTH 15:50
PROVIDERS: PCP Family Medicine; Visit Provider Family Medicine
DX: N39.0 Urinary tract infection, site not specified (principal)
CPT/HCPCS: 81003; 87086; 87088

== ENCOUNTER 2021-02-09 08:05 | Outpatient (CLI) | payer BC, SELFPAY ==
--- NOTE | ~2021-02-09 | XR_ITS ---
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 TECHNIQUE: Frontal and lateral views of the chest were obtained. COMPARISON: Chest single view 11/13/20 FINDINGS: There are reticular opacities in right lower lung zone. No pleural effusion or pneumothorax . The heart size is normal. Surgical clips in the right upper quadrant are likely from cholecystectom y. IMPRESSION: 1. Reticular opacities in right lower lung zone, consistent with mild atelectasis versus chronic lung disease. Reviewed, dictated and finalized at location A. IMPRESSION: 1. Reticular opacities in right lower lung zone, consistent with mild atelectas is versus chronic lung disease.
[2021-02-09 08:39] VITALS: PULSE 68; O2SAT 97
[2021-02-09 08:41] VITALS: PULSE 89; O2SAT 98
[2021-02-09 08:42] VITALS: PULSE 88; O2SAT 98
[2021-02-09 08:43] VITALS: PULSE 90; O2SAT 97
--- NOTE | 2021-02-09 09:50 | HOMEO2EVAL ---
Home Oxygen Evaluation RC: Home Oxygen (O2) Evaluation Start: 02/09/21 09:45 Freq: Status: Active Protocol: RPE Activity Type Activity Date Activity User E-Sign Co-Sign Detail Recorded Client Recorded Date Recorded By Document 02/09/21 08:39 KRM [email or web address] 02/09/21 09:50 KRM Document 02/09/21 08:41 KRM [email or web address] 02/09/21 09:50 KRM Document 02/09/21 08:42 KRM [email or web address] 02/09/21 09:50 KRM Document 02/09/21 08:43 KRM [email or web address] 02/09/21 09:50 KRM 02/09/21 02/09/21 02/09/21 08:39 08:41 08:42 Home O2 Evaluation Test Phase Resting Exercise Exercise Oxygen Delivery Room Air Room Air Room Air Pulse Oximetry (90-100 %) 97 98 98 Pulse Rate (60-100 beats/min) 68 89 88 Activity Tolerance Good Good Ambulation Distance (feet) Treatment Charges O2 Evaluation - Outpatient 02/09/21 08:43 Home O2 Evaluation Test Phase Exercise Oxygen Delivery Room Air Pulse Oximetry (90-100 %) 97 Pulse Rate (60-100 beats/min) 90 Activity Tolerance Good Ambulation Distance (feet) 400 Treatment Charges
--- NOTE | 2021-02-09 12:47 | P.PCNPFT_ITS ---
PFT Interpretation This is a pulmonary function test with pre and post-bronchodilator spirometry, plethysmography and diffusing capacity. The test was performed and results interpreted in accordance with the 2019 and 2005 ATS/ERS Task Force guidelines respectively using the Global Lung Function Initiative-2012 reference equations. Patient demonstrated good effort and c ooperation. Reproducibility criteria were met. The quality of the pre bronchodilator spirometry maneuver was Grade A and post bronchodilator spirometry maneuver was Grade A. Findings: Spirometry:The contour of the inspiratory and expiratory flow tracing are normal. The pre bronchodilator is 2.34 L, 72% predicted. The pre bronchodilator FEV1 is 1.87 L, 73% predicted. The FEV1: FVC ratio was 80%. The post bronchodilator FVC is 2.28 L, representing a 3% decrease. The post bronchodilator FEV1 is 1.77 L, representing a 5% decrease. Plethysmography: The total lung capacity is 3.09 L, 61% predicted. The functional residual capacity is 1.54 L, 54% predicted. The residual volume is 0.72 L, 37% predicted. Diffusing capacity the absolute diffusion capacity is 11.4, 52% predicted. The diffusing capacity corrected for alveolar volume is 3.77, 84% predicted. Impression: There is a mild restrictive ventilatory abnormality. The spirometry is normal without evidence of an obstructive abnormality. There is no significant improvement after inhaling a single dose of albuterol. The absolute diffusing capacity is moderately decreased and normalizes when corrected for alveolar volume. There are no prior studies for comparison PFT Procedure Performed PFT Procedure Performed Spirometry with Pre/Post Bronchodilator Plethysmography (Lung Vol) Diffusing Cap (DLCO)
== END 2021-02-09 08:06 | disposition home or self-care (01) ==
PROVIDERS: PCP Family Medicine; Visit Provider Internal Medicine Pulmonary Disease
DX: U07.1 COVID-19 (principal); J12.89 Other viral pneumonia
CPT/HCPCS: 71046; 94060; 94618; 94726; 94729

== ENCOUNTER 2021-07-17 07:47 | Outpatient (CLI) | payer BC, SELFPAY ==
--- NOTE | ~2021-07-17 | MM_ITS ---
EXAMINATION: MM screening rex BI w jayshree HISTORY: Screening mammogram TECHNIQUE: Craniocaudal and mediolateral oblique 3-D tomosynthesis images were obtained and synthetic 2-D images were generated. CAD analysis was submitted and interpreted. COMPARISON: 06/26/2020, 03/21/2019, 03/01/2018 bilateral digital screening mammogram examinations BREAST PARENCHYMAL COMPOSITION: The breasts are almost entirely fatty. FINDINGS: There is no evidence of suspicious mass, calcification, or architectural distortion to sugg est malignancy in either breast. There has been no suspicious interval change. IMPRESSION: 1. No mammographic evidence of malignancy. 2. Recommend routine screening mammography in one year. BI-RADS Category 1: Negative Reviewed, dictated and finalized at location A.
== END 2021-07-17 07:48 | disposition home or self-care (01) ==
LOC: ANHIMG 07:49
PROVIDERS: PCP Family Medicine; Visit Provider Obstetrics & Gynecology Gynecology
DX: Z12.31 Encounter for screening mammogram for malignant neoplasm of breast (principal)
CPT/HCPCS: 77063; 77067

== ENCOUNTER 2022-12-10 08:45 | Outpatient (CLI) | payer BC, SELFPAY ==
--- NOTE | ~2022-12-10 | DEXA_ITS ---
Bone Density Report Name: GERBER VARELA Age: 62 Sex: Female Ethnicity: White Date of : 1960 Indication: postmenopausal; screening for osteoporosis; hysterectomy; Referring Provider: JOE MCCONNELL Study: Bone densitometry was performed. Exam Date: December 10, 2022 Accession number: [id number] Bone Density: Region BMD T-score Z-score Classification AP Spine(L1, L2, L3) 1.035 0.2 1.5 Normal Femoral Neck (Left) 0.756 -0.8 0.5 Normal Total Hip (Left) 0.952 0.1 1.0 Normal Femoral Neck (Right) 0.774 -0.7 0.6 Normal Total Hip (Right) 0.962 0.2 1.1 Normal Total Hip Mean 0.957 0.2 1.1 Normal World Health Organization criteria for BMD impression classify patients as: Normal (T-score at or above -1.0), Osteopenia (T-score between -1.0 and -2.5), or Osteoporosis (T-score at or below -2.5). 10-year Fracture Risk: FRAX not reported because: All T-scores for Spine Total, Hip Total, Femoral Neck at or above -1.0 Previous Exams: Region Exam Age BMD T-score BMD Change BMD Change Date g/cm2 vs Baseline vs Previous AP Spine (L1-L3) 12/10/2022 62 1.035 0.2 -0.164 (-13.7% -0.072 (-6.5%) 02/18/2017 56 1.108 0.8 -0.091 (-7.6%) -0.091 (-7.6%) 04/18/2014 53 1.199 1.6 Total Hip(Left) 12/10/2022 62 0.952 0.1 -0.203 (-17.6% -0.055 (-5.4%) 02/18/2017 56 1.007 0.5 -0.148 (-12.8% -0.148 (-12.8% 04/18/2014 53 1.155 1.7 Total Hip(Right) 12/10/2022 62 0.962 0.2 -0.176 (-15.5% -0.023 (-2.3%) 02/18/2017 56 0.985 0.3 -0.153 (-13.4% -0.153 (-13.4% 04/18/2014 53 1.138 1.6 *Denotes significance at 95% confidence level, LSC for AP Spine = 0.022 g/cm2, LSC for Total Hip = 0.027 g/cm2 # Denotes dissimilar scan types or analysis methods Clinical Information Provided by Patient: Has the following medical conditions: Hysterectomy Patient maximum height was 64 Menopause Age: 52 No regular weight bearing exercise Onset of menses at age 14 Number of children 1 Impression: The patient has normal bone mass. The BMD for the AP Spine (L1-L3) decreased, changing by -6.5% since the last DXA exam. The BMD for the Total Hip(Left) decreased, changing by -5.4% since the last DXA exam. Discussion: BONE DENSITY IS ABOVE THE MINIMUM DESIRABLE LEVEL AT ALL SKELETAL SITES TESTED. This patient?s bone mineral density is above the minimum desirable level (T-score -1.0 or better) at all sites measured. The patient jake
--- NOTE | ~2022-12-10 | MM_ITS ---
EXAMINATION: MM screening rex BI w jayshree HISTORY: Screening TECHNIQUE: Craniocaudal and mediolateral oblique 3-D tomosynthesis images were obtained and synthetic 2-D images were generated. CAD analysis was submitted and interpreted. COMPARISON: Comparison to multiple prior studies sequentially, with oldest reviewed study dated 05/19. BREAST PARENCHYMAL COMPOSITION: Breast composed of scattered areas of fibroglandular density FINDINGS: There is no evidence of suspicious mass, calcification, or architectural distortion to sugg est malignancy in either breast. There has been no suspicious interval change. IMPRESSION: 1. No mammographic evidence of malignancy. 2. Recommend routine screening mammography in one year. BI-RADS Category 1: Negative Reviewed, dictated and finalized at location A. [employer]
== END 2022-12-10 08:46 | disposition home or self-care (01) ==
PROVIDERS: PCP Family Medicine; Visit Provider Obstetrics & Gynecology Gynecology
DX: Z12.31 Encounter for screening mammogram for malignant neoplasm of breast (principal); Z78.0 Asymptomatic menopausal state
CPT/HCPCS: 77063; 77067; 77080

== ENCOUNTER 2023-03-18 00:34 | Day surgery (SDC) | payer BC, SELFPAY ==
[2023-03-04 13:25] VITALS: BMI 44.1
--- NOTE | 2023-03-17 17:13 | PM.HPGS ---
History of Present Illness History of Present Illness Consent: Risks, benefits, and alternatives have been discussed and questions answered. Patient agrees to proceed with procedure. Chief complaint: family hx colon ca, hx colon polyps Narrative: Natasha Hogan is a 62 year old female Here for colon cancer screening. Her father had colon cancer. The patient herself had an adenomatous polyp removed 6 years ago. 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 Typically she was smoke about a pack in a week. Socially drinks alcohol no marijuana or illicit drugs. Her is a durable power county attorney for healthcare. The patient desires to be a full code. Smoking packs per day: 1 Smoking cigarettes per day: 20.0 Years smoked: 10 Smoking pack-years: 10.00 Smoking status: Former smoker Tobacco type: cigarettes Second hand tobacco smoke exposure: No Alcohol intake: current Drinks per week: 1 Substance use: never Substance use type: does not use Lack of Transportation: No Lack of Food: Never True Current Housing: I Have Housing Concerned About Future Housing: No Difficulty Paying Gas/Electric Bills: No Difficulty Paying for Meds: No Currently Unemployed: No Education: Associate Degree Difficulty w/ Childcare or Family Care: No Living arrangements: with family 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 Gender identity (if verbalized by the patient): Female Sexual Orientation (if Verbalized by the Patient): Straight or Heterosexual Spiritual care concerns: No Meds Home Medications and Allergies Home Medications Medication Instructions Recorded Confirmed Type atorvastatin 10 mg tablet See Rx Instructions .Route 11/13/22 03/04/23 Rx .COMPLEX #90 tabs telmisartan 80 See Rx Instructions .Route 02/09/23 03/04/23 Rx mg-hydrochlorothiazide 12.5 mg .COMPLEX #180 tabs tablet sertraline 50 mg tablet See Rx Instructions .Route 02/24/23 03/04/23 Rx .COMPLEX #90 tabs Allergies Allergy/AdvReac Type Severity Reaction Status Date / Time No Known Allergies Allergy Mild Verified 03/18/23 09:09 Exam Const: General: alert Orientation/consciousness: patient oriented x3 Resp: Auscultation: clear to auscultation bilaterally Cardio: Rhythm: regular rhythm GI: GI Palp: Yes Soft to palpation and No Tenderness to palpation present (GI) Neuro: General: patient oriented x3 Assessment and Plan Assessment and plan (1) Colon cancer screening: Code(s): Z12.11 - Encounter for screening for malignant neoplasm of colon Status: Acute Assessment and Plan: Colonoscopy with possible biopsy or polypectomy or cautery or injection of substa
--- NOTE | 2023-03-18 08:56 | WPDANESEPPF ---
Anes - Initial Pre Proc Eval Procedure: Operation Date: 03/18/23 10:30 Proposed Procedures p Colonoscopy - Raúl Simpson MD Date/Time: 03/18/23 08:56 Surgeon: Raúl Simpson MD Pre Op Diagnosis: family hx colon ca, hx colon polyps Patient Data Age: 62 Gender: F Height: 1.6 m Weight: 113 kg Allergies Allergy/AdvReac Type Severity Reaction Status Date / Time No Known Allergies Allergy Mild Verified 03/18/23 09:09 Home Medications Medication Instructions Recorded Confirmed Type atorvastatin 10 mg tablet See Rx Instructions .Route 11/13/22 03/04/23 Rx .COMPLEX #90 tabs telmisartan 80 See Rx Instructions .Route 02/09/23 03/04/23 Rx mg-hydrochlorothiazide 12.5 mg .COMPLEX #180 tabs tablet sertraline 50 mg tablet See Rx Instructions .Route 02/24/23 03/04/23 Rx .COMPLEX #90 tabs ECG: Date of Service: 11/03/20 Procedure(s): CA 12 lead EKG Accession Number(s): [id number] cc: ~ ? Measurements Intervals? [place]? Rate: ? 76 ? P:? 20 WA: ? 127? QRS:? -16 QRSD: ? 84 ? T:? -26 QT: ? 365? QTc:? 411? Interpretive Statements SINUS RHYTHM DELAYED PRECORDIAL R/S TRANSITION BORDERLINE T WAVE ABNORMALITY- ANT/INF LEADS BORDERLINE ECG Electronically Signed On 11-03-2020 14:16:36 TOOL CLERK by Jb Fairchild D.O. Patient hx anesthesia problems: none Family hx anesthesia problems: none Results Review: All pre-operative results and documents have been reviewed as part of the pre-operative evaluation. 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 Typically she was smoke about a pack in a week. Socially drinks alcohol no marijuana or illicit drugs. Her is a durable power corporate associate attorney for healthcare. The patient desires to be a full code. Smoking packs per day: 1 Smoking cigarettes per day: 20.0 Years smoked: 10 Smoking pack-years: 10.00 Smoking status: Former smoker Tobacco type: cigarettes Second hand tobacco smoke exposure: No Alcohol intake: current Drinks per week: 1 Substance use: never Substance use type: does not use Lack of Transportation: No Lack of Food: Never True Current Housing: I Have Housing Concerned About Future Housing: No Difficulty Paying Gas/Electric Bills: No Difficulty Paying for Meds: No Currently Unemployed: No Education: Associate Degree Difficulty w/ Childcare or Family Care: No Living arrangements: with family 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
[2023-03-18 09:12] VITALS: BP 96/55; PULSE 72; RESP 20; TEMP 36.2; O2SAT 98
[2023-03-18] MEDS: LACTATED RINGERS 1,000 ML 150 ML IV CONT (10:00)
[2023-03-18 10:03] VITALS: BP 83/55; PULSE 67; RESP 21; O2SAT 98
[2023-03-18 10:13] VITALS: BP 95/63; PULSE 61; RESP 16; O2SAT 98
[2023-03-18 10:23] VITALS: BP 116/72; PULSE 66; RESP 15; O2SAT 100
== END 2023-03-18 10:32 | disposition home or self-care (01) ==
PROVIDERS: PCP Family Medicine; Visit Provider Internal Medicine Gastroenterology
PROC: 0DJD8ZZ Inspection of Lower Intestinal Tract, Via Natural or Artificial Opening Endoscopic (ICD-10-PCS; CPT 45378; principal; 2023-03-18 10:30)
DX: Z12.11 Encounter for screening for malignant neoplasm of colon (principal); K57.30 Diverticulosis of large intestine without perforation or abscess without bleeding; D12.5 Benign neoplasm of sigmoid colon; Z80.0 Family history of malignant neoplasm of digestive organs; I10 Essential (primary) hypertension; I25.2 Old myocardial infarction; E78.49 Other hyperlipidemia; F41.1 Generalized anxiety disorder; I47.1 Supraventricular tachycardia; E66.01 Morbid (severe) obesity due to excess calories; Z68.42 Body mass index [BMI] 45.0-49.9, adult; Z87.891 Personal history of nicotine dependence
CPT/HCPCS: 45380; 88305; J2704; J7120

== ENCOUNTER 2023-06-25 11:22 | Emergency (ER) | payer BC, SELFPAY ==
[2023-06-25 11:35] VITALS: BP 140/83; PULSE 64; RESP 22; TEMP 36.2; O2SAT 100
--- NOTE | 2023-06-25 11:48 | ED.SKABFB ---
HPI - Skin/Abscess/Foreign Bdy General Chief complaint: Skin/Abscess/Foreign Body Stated complaint: Rash all over Time Seen by Provider: 06/25/23 11:42 Source: patient and RN notes reviewed Mode of arrival: ambulatory Limitations: no limitations History of Present Illness HPI narrative: Patient presents today complaining of widespread rash x1 week that is most concentrated in her abdominal folds. It is moderately pruritic. She has been using Bianka dry, cortisone, and calamine lotion without relief. Denies known source. Related Data Allergies Allergy/AdvReac Type Severity Reaction Status Date / Time No Known Allergies Allergy Mild Verified 06/25/23 11:27 Review of Systems Review of Systems: CONSTITUTIONAL: Denies body aches, fever, chills, or sweats. EYES: Denies visual changes, redness, or discharge. ENT: Denies rhinorrhea, congestion, sore throat, or otalgia. CARDIOVASCULAR: Denies chest pain, palpitations, or edema. RESPIRATORY: Denies cough or dyspnea. GASTROINTESTINAL: Denies abdominal pain, nausea, vomiting, or diarrhea. GENITOURINARY: Denies dysuria or hematuria. SKIN: + pruritic rash MUSCULOSKELETAL: Denies back pain, joint pain, or myalgia. NEUROLOGIC: Denies headache, numbness, tingling, or weakness. PSYCH: Denies depression or anxiety. 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 Typically she was smoke about a pack in a week. Socially drinks alcohol no marijuana or illicit drugs. Her is a durable power shirt operator for healthcare. The patient desires to be a full code. Smoking packs per day: 1 Smoking cigarettes per day: 20.0 Years smoked: 10 Smoking pack-years: 10.00 Smoking status: Former smoker Tobacco type: cigarettes Second hand tobacco smoke exposure: No Alcohol intake: current Drinks per week: 1 Substance use: never Substance use type: does not use Lack of Transportation: No Lack of Food: Never True Current Housing: I Have Housing Concerned About Future Housing: No Difficulty Paying Gas/Electric Bills: No Difficulty Paying for Meds: No Currently Unemployed: No Education: Associate Degree Difficulty w/ Childcare or Family Care: No Living arrangements: with family 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 Please see nursing chart for further information. There is no relevant family history pertinent to the presenting complaint Exam Narrative: GENERAL: Well-appearing, well-nourished, and in no acute distress.
== END 2023-06-25 12:01 | disposition home or self-care (01) ==
PROVIDERS: Emergency Provider Nurse Practitioner; PCP Family Medicine
DX: L25.9 Unspecified contact dermatitis, unspecified cause (principal); Z87.891 Personal history of nicotine dependence; E78.5 Hyperlipidemia, unspecified; I10 Essential (primary) hypertension; I25.2 Old myocardial infarction; E78.49 Other hyperlipidemia; E66.01 Morbid (severe) obesity due to excess calories; Z68.41 Body mass index [BMI] 40.0-44.9, adult; F41.9 Anxiety disorder, unspecified
CPT/HCPCS: 99213; G0463

== ENCOUNTER 2024-02-17 08:00 | Outpatient (CLI) | payer BC, SELFPAY ==
--- NOTE | ~2024-02-17 | MM_ITS ---
EXAMINATION: MM screening rex BI w jayshree HISTORY: Screening TECHNIQUE: Craniocaudal and mediolateral oblique 3-D tomosynthesis images were obtained and synthetic 2-D images were generated. CAD analysis was submitted and interpreted. COMPARISON: Comparison to multiple prior studies sequentially, with oldest reviewed study dated 07/17. BREAST PARENCHYMAL COMPOSITION: The breasts are almost entirely fatty. FINDINGS: There is no evidence of suspicious mass, calcification, or architectural distortion to sugg est malignancy in either breast. There has been no suspicious interval change. IMPRESSION: 1. No mammographic evidence of malignancy. 2. Recommend routine screening mammography in one year. BI-RADS Category 1: Negative Reviewed, dictated and finalized at location A.
== END 2024-02-17 08:01 | disposition home or self-care (01) ==
LOC: CHSIMG 08:01
PROVIDERS: PCP Obstetrics & Gynecology Gynecology; Visit Provider Obstetrics & Gynecology Gynecology
DX: Z12.31 Encounter for screening mammogram for malignant neoplasm of breast (principal)
CPT/HCPCS: 77063; 77067

== ENCOUNTER 2025-05-03 08:10 | Outpatient (CLI) | payer BC, SELFPAY ==
--- NOTE | ~2025-05-03 | MM_ITS ---
EXAMINATION: MM screening rex BI w jayshree HISTORY: Screening mammogram TECHNIQUE: Craniocaudal and mediolateral oblique 3-D tomosynthesis images were obtained and synthetic 2-D images were generated. CAD analysis was submitted and interpreted. COMPARISON: 02/17/2024, 12/10/2022, 07/17/2021 BREAST PARENCHYMAL COMPOSITION:Not Dense. The breasts are almost entirely fatty FINDINGS: No suspicious mass, calcification, or architectural distortion are identified in either stephany ast to suggest malignancy. There has been no suspicious interval change. IMPRESSION: No mammographic evidence of malignancy. Recommend routine screening mammography in one year. BI-RADS Category 1: Negative Reviewed, dictated and finalized at location .
== END 2025-05-03 08:11 | disposition home or self-care (01) ==
LOC: CHSIMG 08:11
PROVIDERS: PCP Family Medicine; Visit Provider Obstetrics & Gynecology Gynecology
DX: Z12.31 Encounter for screening mammogram for malignant neoplasm of breast (principal)
CPT/HCPCS: 77063; 77067

== ENCOUNTER 2025-05-26 17:40 | Inpatient (IN) | payer BC, SELFPAY ==
[2025-05-26] VITALS (9 sets, daily range): BP systolic 98–121; BP diastolic 62–80; PULSE 85–106; RESP 18–20; TEMP 36.2–37.1; O2SAT 92–100; BMI 44.4
--- NOTE | ~2025-05-26 | XR_ITS ---
EXAMINATION: XR chest 2V Exam Date/Time: 05/26/2025 18:40 CDT HISTORY: CP Comparison: 02/09/2021. RESULT: Lines, tubes, and devices: Cholecystectomy clips. Lungs and pleura: Patchy airspace disease in the upper and lower left lung and throughout the right lung. Mild bilateral costophrenic angle blunting is likely related to the adjacent opacities rather t mckee pleural fluid given the clear posterior costophrenic angles. Cardiomediastinal silhouette: Stable. Other: No acute osseous or upper abdominal finding. IMPRESSION: Patchy bilateral airspace disease may represent infection or edema. Reviewed, dictated and finalized at location K.
--- NOTE | ~2025-05-26 | CT_ITS ---
EXAMINATION: CTA chest PE protocol DATE: 05/27/2025 16:26 INDICATION: New hypoxia, pleurtic chest pain, elevated d-dimer TECHNIQUE: Computed tomography angiography (CTA) of the chest was performed with 100 mL Omnipaque-350 intravenous contrast timed to evaluate the pulmonary arteries. Coronal maximum intensity projection 3D-reconstructions were created by the technologist. The dose-length product (DLP) was 833.90 mGy-cm. Automated exposure control and iterative reconstruction technique were employed. COMPARISON: 10/22/2020; x-ray chest 05/26/2025. FINDINGS: Lung parenchyma and airways: Somewhat rounded areas of peripheral and central consolidation, with con solidation along the bronchovascular planes. Multiple air bronchograms are present. Patent airways. Pleura: Small bilateral pleural fluid collections, slightly greater on the left.. Thoracic inlet, axillae and chest wall: Subcentimeter right thyroid lobe hypodensity, which requires no additional evaluation at this time. Thoracic aorta: No significant dilation. No dissection. Mild arch calcification. Mediastinum: Scattered borderline mediastinal lymph nodes. Interval resolution or removal of the prev iously described anterior mediastinal mass. Dilated central pulmonary arteries as can be seen with pu lmonary hypertension. Calcified nodes. Heart and pericardium: Mild cardiomegaly. Trace pericardial fluid. Coronary artery calcifications: Mild. Upper abdomen: Small hiatal hernia. Prior gastric surgery. Bones: No acute osseous finding. Pulmonary arteries: Study quality: Adequate. No pulmonary emboli detected. IMPRESSION: No CT evidence of acute pulmonary embolus. Bilateral peripheral and peribronchovascular consolidation affecting all lobes, concerning for pneumo aggie. Small bilateral pleural effusions. Mild cardiomegaly. Trace pericardial effusion. Reviewed, dictated and finalized at location K. IMPRESSION: No CT evidence of acute pulmonary embolus. Bilateral peripheral and peribronchovascular consolidation affecting all lobes, concerning for pneumonia. Small bilateral pleural effusions. Mild cardiomegaly. Trace pericardial effusion.
--- NOTE | ~2025-05-26 | US_ITS ---
EXAMINATION: US venous doppler [facility] DATE: 05/28/2025 21:10 INDICATION: Pain in swelling in the lower limbs. Elevated d-dimer. TECHNIQUE: Grayscale images without and with compression and Doppler images of the bilateral lower ex tremity veins were obtained. COMPARISON: None FINDINGS: The right common femoral vein, profunda (deep) femoral vein, femoral vein, popliteal vein, peroneal v ein, posterior tibial veins, gastrocnemius vein, and greater saphenous vein are patent. The left common femoral vein, profunda (deep) femoral vein, femoral vein, popliteal vein, peroneal v ein, posterior tibial veins, gastrocnemius vein, and greater saphenous vein are patent. IMPRESSION: Patent bilateral lower extremity veins. No evidence of deep venous thrombosis. Reviewed, dictated and finalized at location K.
--- NOTE | 2025-05-26 17:41 | ECG_ITS ---
Test Date: 2025-05-26 17:49:05 Measurements Intervals [place] Rate: 100 P: 18 NH: 136 QRS: 4 QRSD: 85 T: -1 QT: 321 QTc: 416 Interpretive Statements SINUS TACHYCARDIA LOW QRS VOLTAGE IN PRECORDIAL LEADS [QRS DEFLECTION < 1.0 mV IN CHEST LEADS] ABNORMAL RHYTHM ECG No previous ECG available for comparison Electronically Signed On 05-27-2025 10:50:14 CDT by Donis Gordillo M.D.
--- OUTSIDE RECORDS SUMMARY | 2025-05-26 17:42 | XMS_ITS | Clinical Summary ---
Author Organization [facility] Address [address] [place] [address] Care Team Providers Care Supply Person Name Role Phone Alberto Shaffer MD Primary Care Provider [phone] Source Comments [facility],non-owned Affiliates and Associated Physician Practices is amultiple site organization consisting of ambulatory clinics and hospital sitesin [place], [place], [place] and [place]. This disclosure is being madepursuant to the Care Everywhere program and may not contain all information available regarding this patient. Last updated 18.[facility] Allergies No known active allergies Medications * Be aware that medications may not be up to date on this document. Alwaysverify current medications with the patient. sertraline (ZOLOFT) 50 MG tablet Take 1 (one) tablet by mouth once daily 09/12/2020 Active telmisartan-hydr oCHLOROthiazide (MICARDIS HCT) 80-12.5 MG tablet 1 (one) tablet once daily 12/10/2020 Active atorvastatin (Lipitor) 10 MG tablet Take 1 (one) tablet by mouth once daily 02/19/2022 Active Active Problems Problem Noted Date Diagnosed Date Thyroid nodule 09/04/2021 Thymoma 12/12/2020 HTN (hypertension) 12/12/2020 Pneumonia due to COVID-19 virus 12/12/2020 Immunizations Immunization Administration Dates Next Due COVID [facility]IE [facility] 18+YR 01/09/2021 INFLUENZA VACCINE, QUADR. (F LUZONE; FLULAVAL; FLUARIX; AFLURIA QUADRIVALENT; 6MO+), 0.5 ML (IIV4) 10/15/2022 Family History Medical History Relation Name Comments Cancer - Colon Father Hypertension Father Hypertension Mother Relation Name Status Comments Father Mother Social History Tobacco Use Types Packs/Day Years Used Date Smoking Tobacco: Former Cigarettes 1 5 1 - 09/03/2020 Smokeless Tobacco: Never Alcohol Use Standard Drinks/Week Comments Yes 0 (1 standard drink = 0.6 oz pur e alcohol) rare PHQ-2 Answer Date Recorded PHQ2 TOTAL SCORE 0 08/21/2021 Comments No Sex and Gender Information Value Date Recorded Sex Assigned at Not on file Legal Sex Female 11:44 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 SVP Gender Identity Not on file Sexual Orientation Not on file Last Filed Vital Signs Vital Sign Reading Time Taken Comments Blood Pressure 150/89 07/28/2023 2:36 PM CDT Pulse 80 07/28/2023 2:36 PM CDT Temperature 36.3 C (97.3 F) 07/28/2023 2:36 PM CDT Respiratory Rate 18 07/28/2023 2:36 PM CDT Oxygen Saturation 98% 07/28/2023 2:36 PM CDT Inhaled Oxygen Concentration - - Weight 119.3 kg (263 lb) 07/28/2023 2:36 PM CDT Height 162.6 cm (5' 4) 04/30/2022 7:56 AM CDT Body Mass Index 45.14 04/30/2022 7:56 AM CDT Plan of Treatment Health Maintenance Due Date Last Done Comments COLOGUARD (AGES 45-75) - COL ON CA SCREENING 1962 COLON MONITORING 1962 COLONOSCOPY - COLON CA SCREENING 1962 CT COLONOGRAPHY - COLON CA SCREENING 1962 Colorectal Cancer Screening 1962 FIT - COLON CA SCREENING 1962 FLEX SIG - COLON CA SCREENING 1962 MAMMOGRAM 1962 HIV SCREENING 1977 HEPATITIS C SCREENING 08/26/1980 DTAP/TDAP/TD VACCINES (1 - Tdap) 1981 PAP SMEAR 1983 PNEUMOCOCCAL VACCINE 50+ (1 of 1 - PCV) 2012 ZOSTER VACCINE (1 of 2) 2012 Respiratory Syncytial Virus (RSV) Vaccine Pt: or over 60 yrs (1 - Risk 60-74 years 1-dose series) 2022 COVID-19 VACCINE (3 - 2023-2 5 season) 2024 09/24/2021, 01/09/2021 DEPRESSION SCREENING 11/07/2024 INFLUENZA VACCINE (#1) 2025 , 09/19/2020 HEPATITIS B VACCINE Aged Out No longe r eligible based on patient's age to complete this topic HIB VACCINE Aged Out No longer eligi ble based on patient's age to complete this topic HPV VACCINE Aged Out No longer eligi ble based on patient's age to complete this topic MENINGOCOCCAL (Group B) VACCINE SHARED DECISION-MAKING Aged Out No longer eligible based on patient's age to complete this topic MENINGOCOCCAL GROUPS A/C/Y/W VACCINE Aged Out No longer eligible b ased on patient's age to complete this topic Insurance [facility] Advance Directives * Full Code (Latest Code Status on File) Date Activated Date Inactivated Comments 03/05/2021 12:13 PM 03/06/2021 4:27 PM Care Teams Supply Person Relationship Specialty Start Date End Date Alberto Shaffer MD [address] [place] [address] PCP - General Family Medicine 12/09/20
--- OUTSIDE RECORDS SUMMARY | 2025-05-26 17:42 | XMS_ITS | Encounter Summary ---
Author Organization [facility] Address [address] [place] [address] Care Team Providers Care Farmworker Animal Name Role Phone Alberto Shaffer MD Primary Care Provider [phone] Encounter Details Date Type Department Care Team (Late st Contact Info) Description 03/06/2021 Lab Requisition [facility] Care Pathology Lab [address] [place] [id number] Diana Dang MD [facility] [place] [address] Social History Tobacco Use Types Packs/Day Years Used Date Smoking Tobacco: Former Cigarettes 1 5 1 - 09/03/2020 Smokeless Tobacco: Never Alcohol Use Standard Drinks/Week Comments Yes 0 (1 standard drink = 0.6 oz pur e alcohol) rare Comments No Sex and Gender Information Value Date Recorded Sex Assigned at Not on file 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 No / Unsure 02/11/2021 11:10 AM CDT documented as of this encounter Plan of Treatment Not on file documented as of this encounter Procedures Procedure Name Priority Date/Time Associated Diagnosis Comments SLIDE PREP HISTOLOGY Routine 03/05/2021 9:49 AM CDT documented in this encounter Results * SLIDE PREP HISTOLOGY (03/05/2021 9:49 AM CDT) Client Specimen ID # [id number] 03/30/2021 4:01 PM CDT [facility] Number of Blocks Received 0 03/30/2021 4:01 PM CDT [facility] Number of Slides 1 03/30/2021 4:01 PM CDT [facility] Number of Control Slides 1 03/30/2021 4:01 PM CDT [facility] Pathology/Cytolo gy MEDIASTINAL MASS / Unknown 03/05/2021 9:49 AM CDT 03/06/2021 2:23 PM CDT Diana Dang MD LAB - PATHOLOGY/CYTOLOGY ORD ERABLES Final Result Performing Organization Address City/State/[facility] Co de Phone Number [facility] [address] [phone] documented in this encounter Visit Diagnoses Not on filedocumented in this encounter Care Teams Farmworker Animal Relationship Specialty Start Date End Date Alberto Shaffer MD [address] [place] [address] PCP - General Family Medicine 12/09/20 documented as of this encounter
--- OUTSIDE RECORDS SUMMARY | 2025-05-26 17:42 | XMS_ITS | Clinical Summary ---
Author Organization [facility] Address [address] [place] [address] Care Team Providers Care Teacher Vocational Training Name Role Phone Alberto Shaffer MD Primary Care Provider [phone] Allergies No known active allergies Medications atorvastatin (LIPITOR) 10 MG tablet Take 1 tablet (10 mg total) by mouth daily. 5 Active clotrimazole-be tamethasone (LOTRISONE) cream Apply topically 2 (two) times daily as needed. apply to affected area 5 Active sertraline (ZOLOFT) 50 MG tablet Take 1 tablet (50 mg total) by mouth daily. 5 Active Telmisartan-HCT Z 80-12.5 MG Tab Take 2 tablets by mouth daily. 5 Active fluconazole (DIFLUCAN) 150 MG tabletIndicatio ns:Yeast infection 1 tab now and 1 in another in week if needed 2 tablet 5 Active Active Problems Problem Noted Date Diagnosed Date Thyroid nodule 09/04/2021 HTN (hypertension) 12/12/2020 Pneumonia due to COVID-19 virus 12/12/2020 Thymoma 12/12/2020 Encounters Date Type Department Care Team Description 03/05/2025 Orders Only [facility] [address] [place] [address] [place], [place] 03/05/2025 Telephone [facility] [address] [place] [address] Enedina Jansen PA Medication Request (Vaginal yeast infection from AB ) from Last 3 Months Immunizations Immunization Administration Dates Next Due Influenza (Generic) 09/05/2015 Influenza Adult (Generic) 10/15/2022,09/19/2020 Pneumococcal (Pneumovax 23) 09/05/2015 Social History Tobacco Use Types Packs/Day Years Used Date Smoking Tobacco: Former Cigarettes Passive Smoke Exposure: Past Smokeless Tobacco: Never Tobacco Cessation:Counseling Given: Not Answered Alcohol Use Standard Drinks/Week Comments Yes 0 (1 standard drink = 0.6 oz pur e alcohol) PHQ-2 Answer Date Recorded Patient Health Questionnaire-2 Score 0 02/20/2025 Comments No Sex and Gender Information Value Date Recorded Sex Assigned at Female 02/20/2025 12:38 PM CDT Legal Sex Female 12:36 PM CDT Gender Identity Not on file Sexual Orientation Not on file Last Filed Vital Signs Vital Sign Reading Time Taken Comments Blood Pressure - - Pulse 76 02/20/2025 12:48 PM CDT Temperature 36.1 C (97 F) 02/20/2025 12:48 PM CDT Respiratory Rate 20 02/20/2025 12:48 PM CDT Oxygen Saturation 100% 02/20/2025 12:48 PM CDT Inhaled Oxygen Concentration - - Weight 121.1 kg (267 lb) 02/20/2025 12:48 PM CDT Height 162.6 cm (5' 4) 02/20/2025 12:48 PM CDT Body Mass Index 45.83 02/20/2025 12:48 PM CDT Plan of Treatment Health Maintenance Due Date Last Done Comments Colorectal Cancer Screening Colonoscopy (10 Years) 1962 Annual Physical 1965 Hepatitis C 1980 DTaP, Tdap and Td Vaccines ( 1 - Tdap) 1981 Mammogram Screening 2002 Zoster Vaccines (1 of 2) 2012 Pneumococcal Vaccine: 50+ Years (2 of 2 - PCV) 09/05/2016 09/05/2015 RSV Immunization or 60+ Years (1 - Risk 60-74 years 1-dose series) 2022 COVID-19 Vaccine (3 - 2023-2 5 season) 2024 09/24/2021, 01/09/2021 PHQ-2 (Physician [place]) Completed 02/20/2025 Meningococcal B Vaccine Aged Out No l onger eligible based on patient's age to complete this topic Meningococcal Vaccine Aged Out No sonya mandy eligible based on patient's age to complete this topic RSV Immunizations Under 20 Months Aged Out No longer eligible b ased on patient's age to complete this topic Insurance [facility] Care Teams Teacher Vocational Training Relationship Specialty Start Date End Date Alberto Shaffer MD [address] [place] [address] PCP - General FAMILY PRACTICE 02/20/25
--- OUTSIDE RECORDS SUMMARY | 2025-05-26 17:42 | XMS_ITS | Clinical Summary ---
Author Organization [facility] Address [address] [place] [address] Care Team Providers Care Exhibitions And Collections Manager Name Role Phone Alberto Shaffer MD Primary Care Provider [phone] Allergies No known active allergies Medications sertraline (ZOLOFT) 50 mg tablet Take 50 mg by mouth daily 06/13/2022 Active atorvastatin (LIPITOR) 10 mg tablet Take 10 mg by mouth daily 05/31/2022 Active telmisartan-hydr ochlorothiazid (MICARDIS HCT) 80-12.5 mg per tablet 06/30/2022 Active Active Problems No known active problems Social History Tobacco Use Types Packs/Day Years Used Date Smoking Tobacco: Former Cigarettes Q uit: 09/07/2020 Smokeless Tobacco: Never Tobacco Cessation:Counseling Given: Not Answered Personal Safety Answer Date Recorded Getting School Help Needed Not on file 01/21 Comments Unknown Sex and Gender Information Value Date Recorded Sex Assigned at Not on file 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 Gender Identity Not on file Sexual Orientation Not on file Obstetrics History Last Filed Vital Signs Vital Sign Reading Time Taken Comments Blood Pressure 105/73 07/08/2022 12:00 PM CDT Pulse 76 07/08/2022 12:00 PM CDT Temperature 37 C (98.6 F) 07/08/2022 12:00 PM CDT Respiratory Rate 20 07/08/2022 12:0 0 PM CDT Oxygen Saturation 95% 07/08/2022 12: 00 PM CDT Inhaled Oxygen Concentration - - Weight 120.5 kg (265 lb 11.2 oz) 2021 12:00 PM CDT Height 160 cm (5' 3) 07/08/2022 12:00 PM CDT Body Mass Index 47.07 07/08/2022 12:00 PM CDT Plan of Treatment Health Maintenance Due Date Last Done Comments Breast Cancer Screening-Mammogram 1962 Cervical Cancer Screening 1962 Colon Cancer Screening-Colonoscopy 1962 Depression Screening 1962 Hepatitis C Screening 1962 DTaP/Tdap/Td Vaccine (1 - Tdap) 1973 Hepatitis B Screening 1980 Regular Well Visit/Exam 18-64 1980 Zoster Vaccine (1 of 2) 2012 Covid-19 Vaccine (3 - 2023-2 5 season) 2024 09/24/2021, 01/09/2021 Influenza Vaccine (Season Ended) 2025 09/19/2020, 09/05/2015 Pneumococcal vaccine <65 Aged Out 09/05/2015 No longer eligible based on patient's age to complete this topic Insurance [facility] Care Teams Exhibitions And Collections Manager Relationship Specialty Start Date End Date Alberto Shaffer MD PCP - General Family Medicine 07/08/22
--- OUTSIDE RECORDS SUMMARY | 2025-05-26 17:42 | XMS_ITS | Referral Summary ---
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
[2025-05-26 18:10] LABS: Hematocrit 38.9 % (37.0-47.0); Hemoglobin 12.6 g/dL (12.0-15.0); Immature Granulocyte Percent A 0.8 % (0-0.5); Lymphocytes Absolute Auto 0.80 K/mm3 (0.9-3.2); Mean Corpuscular HGB Conc 32.4 g/dl (32-36); Mean Corpuscular Hemoglobin 28.4 pg (26-34); Mean Corpuscular Volume 87.6 fl (80-100); Nucleated Red Blood Cells Absolute Auto 0.000 K/mm3 (0.0-0.012); Nucleated Red Blood Cells Perc 0.0 % (0.0-0.2); Platelet Count Result 268 k/mm3 (150-375); Red Blood Count 4.44 M/mm3 (4.2-5.4); White Blood Count 25.3 K/mm3 (4.5-10.0)
[2025-05-26 18:28] LABS: INR 1.2; Partial Thromboplastin Time 32.9 Seconds (22.3-36.8); Prothrombin Time 15.4 Seconds (11.1-14.7)
[2025-05-26 18:36] LABS: Alanine Aminotransferase 43 U/L (6-35); Albumin Level 3.7 g/dL (3.5-5.1); Alkaline Phosphatase 157 U/L (38-126); Anion Gap 7 mmol/L (4-12); Aspartate Amino Transferase 37 U/L (14-36); Bilirubin,Total 1.2 mg/dL (0.2-1.3); Blood Urea Nitrogen 24 mg/dL (7-17); Calcium 9.1 mg/dL (8.4-10.2); Carbon Dioxide 28 mmol/L (22-30); Chloride 97 mmol/L (98-107); Estimated CRCL calculation 59 ml/min; Estimated Glomerular Filt Rate 52; Glucose 121 mg/dL (65-110); Lipase 42 U/L (23-300); Potassium 3.5 mmol/L (3.4-5.0); Sodium 132 mmol/L (137-145); Total Protein 7.1 g/dL (6.3-8.2)
[2025-05-26] MEDS: ASPIRIN 81 MG CHEWABLE TABLET 324 MG PO (18:41)
[2025-05-26 18:48] LABS: Troponin I 0.023 ng/mL (0.000-0.034)
--- OUTSIDE RECORDS SUMMARY | 2025-05-26 19:31 | XMS_ITS | Clinical Summary ---
Author Organization [facility] Address [address] [place] [address] Care Team Providers Care Instant Powder Supervisor Name Role Phone Alberto Shaffer MD Primary Care Provider [phone] Source Comments [facility],non-owned Affiliates and Associated Physician Practices is amultiple site organization consisting of ambulatory clinics and hospital sitesin [place], [place], [place] and [place]. This disclosure is being madepursuant to the Care Everywhere program and may not contain all information available regarding this patient. 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
--- OUTSIDE RECORDS SUMMARY | 2025-05-26 19:31 | XMS_ITS | Clinical Summary ---
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
--- OUTSIDE RECORDS SUMMARY | 2025-05-26 19:31 | XMS_ITS | Referral Summary ---
Author Organization [facility] the 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
--- OUTSIDE RECORDS SUMMARY | 2025-05-26 19:31 | XMS_ITS | Encounter Summary ---
Author Organization [facility] Address [address] [place] [address] Care Team Providers Care Nursing Instructor Name Role Phone Alberto Shaffer MD Primary Care Provider [phone] Encounter Details Date Type Department Care Team (Late st Contact Info) Description 03/06/2021 Lab Requisition [facility] Care Pathology Lab [address] [place] [address] Diana Dang MD [facility] [place] [address] Social History Tobacco Use Types Packs/Day Years Used Date Smoking Tobacco: Former Cigarettes 1 5 1 - 09/03/2020 Smokeless Tobacco: Never Alcohol Use Standard Drinks/Week Comments Yes 0 (1 standard drink = 0.6 oz pur e alcohol) rare Comments No Sex and Gender Information Value Date Recorded Sex Assigned at Not on file 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 Gender Identity Not on file Sexual Orientation [...] 9:49 AM CDT) Client Specimen ID # [id number] 03/30/2021 4:01 PM CDT [facility] PATHOLOGY LAB Number of Blocks Received 0 03/30/2021 4:01 PM CDT [facility] Number of Slides 1 03/30/2021 4:01 PM CDT [facility] Number of Control Slides 1 03/30/2021 4:01 PM CDT [facility] PATH[facility] Pathology/Cytolo gy MEDIASTINAL MASS / Unknown 03/05/2021 9:49 AM CDT 03/06/2021 2:23 PM CDT Diana Dang MD LAB - PATHOLOGY/CYTOLOGY ORD ERABLES Final Result Performing Organization Address City/State/[facility] Co de Phone Number [facility] PATHOLOGY LAB [address] [phone] documented in this encounter Visit Diagnoses Not on filedocumented in this encounter Care Teams Nursing Instructor Relationship Specialty Start Date End Date Alberto Shaffer MD [address] [place] [address] PCP - General Family Medicine 12/09/20 documented as of this encounter
--- OUTSIDE RECORDS SUMMARY | 2025-05-26 19:31 | XMS_ITS | Clinical Summary ---
Author Organization [facility] Address [address] [place] [address] Care Team Providers Care Senior Dot Net Developer Name Role Phone Alberto Shaffer MD Primary Care Provider [phone] Allergies No known active allergies Medications atorvastatin [...] Department Care Team Description 03/05/2025 Orders Only [facility] Family & Internal Medicine [facility] [address] [place] [address] [place] 03/05/2025 Telephone [facility] Family [facility] Internal Medicine [facility] [address] [place] [address] Enedina Jansen PA Medication Request [...] 5 season) 2024 09/24/2021, 01/09/2021 PHQ-2 (Physician [place]) Completed 02/20/2025 Meningococcal B Vaccine Aged Out No l onger eligible based on patient's age to complete this topic Meningococcal Vaccine Aged Out No sonya mandy eligible based on patient's age to complete this topic RSV Immunizations Under 20 Months Aged Out No longer eligible b ased on patient's age to complete this topic Insurance [facility] Care Teams Senior Dot Net Developer Relationship Specialty Start Date End Date Alberto Shaffer MD [address] [address] PCP - General FAMILY PRACTICE 02/20/25
[2025-05-26] MEDS: SODIUM CHLORIDE 0.9% IV 1,000 ML 999 ML IV CONT ×3 (20:18→20:24)
[2025-05-26] MEDS: cefTRIAXone 1 GM in SODIUM CHLORIDE 0.9% IV 50 ML 100 ML IVPB (20:23)
[2025-05-26] MEDS: AZITHROMYCIN IV 500 MG in SODIUM CHLORIDE 0.9% IV 250 ML IVPB (20:38)
--- NOTE | 2025-05-26 20:40 | ED.CHESTPAIN ---
HPI - Chest Pain General Chief Complaint: Chest Pain Stated Complaint: Chest Pain Time Seen by Provider: 05/26/25 19:03 History of Present Illness HPI narrative: 64-year-old female with a past medical history including previous thymoma, generalized anxiety disorder, hypertension. She presents to the emergency department with shortness of breath for last 2 days. No sick contacts but does endorse a cough that is nonproductive. States that she gets the pain when she coughs or takes deep breath. No history of DVT or PE. No leg swelling. Was otherwise in her normal state of health. No fever, chills, nausea, vomiting, neck pain, back pain, abdominal pain, diarrhea. 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 Typically she was smoke about a pack in a week. Socially drinks alcohol no marijuana or illicit drugs. 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 The patient desires to be a full code. Smoking packs per day: 1 Smoking cigarettes per day: 20.0 Years smoked: 10 Smoking pack-years: 10.00 Smoking status: Former smoker Tobacco type: cigarettes Second hand tobacco smoke exposure: No Alcohol intake: current Drinks per week: 1 Substance use: never Substance use type: does not use Do You Feel Safe in your Home?: Yes Lack of Transportation: No Lack of Food: Never True Current Housing: I Have Housing Concerned About Future Housing: No Difficulty Paying Gas/Electric Bills: No Difficulty Paying for Meds: No Currently Unemployed: No Education: Associate Degree Difficulty w/ Childcare or Family Care: No Living arrangements: with family 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 Gender identity (if verbalized by the patient): Female Sexual Orientation (if Verbalized by the Patient): Straight or Heterosexual Spiritual care concerns: No Exam Narrative: GENERAL: Morbidly obese but overall generally well-appearing. HEAD: [Normocephalic, atraumatic.] EYES: [PERRLA and EOMI.] ENT: Nares clear, no rhinorrhea or epistaxis. Mucous membranes moist. NECK: Supple. CHEST: Coarse bibasilar breath sounds worse on the right side. No tachypnea or respiratory distress. No decreased air entry. HEART: Mildly tachycardic but regular rhythm. No murmur heard. [Normal peripheral pulses.] ABDOMEN: [Soft, nondistended], [nontender], [No rigidity or guarding] EXTREMITIES: Normal range of motion. [No edema.] SKIN: Warm, dry, no rash. NEURO: [No focal deficits]. Alert and oriented [x3.] PSYCH: [Normal mood and affect.] Course Vital Signs Vital signs: Vital Signs Temperature 36.2 C L 05/26/25 17:41 Pulse Rate 106 H 05/26/25 17:41 Respiratory Rate 20 05/26/25 17:41 Blood Pressure 121/66 05/26/25 17:41 Pulse Oximetry 98 05/26/25 17:41 Oxygen Delivery Room Air 05/26/25 17:41 Temperature 36.2 C L 05/26/25 17:41 Pulse Rate 89 05/26/25 20:25 Respiratory Rate 18 05/26/25 20:25 Blood Pressure 98/67 L 05/26/25 20:25 Pulse Oximetry 95 05/26/25 20:25 Oxygen Delivery Nasal Cannula 05/26/25 18:44 Oxygen Flow Rate 2 05/26/25 18:44 MDM - Chest Pain MDM Narrative Medical decision making narrative: 64-year-old female with a past medical history including previous thymoma, generalized anxiety disorder, hypertension. She presents to the emergency department with shortness of breath for last 2 days. No sick contacts but does endorse a cough that is nonproductive. States that she gets the pain when she coughs or takes deep breath. No history of DVT or PE. No leg swelling. Was otherwise in her normal state of health. No fever, chills, nausea, vomiting, neck pain, back pain, abdominal pain, diarrhea. Patient has coarse asymmetric breath sounds and is hypoxic during ambulation here in the emergency department she was down to 86% requiring supplemental oxygen 2 L nasal cannula with improvement to 95%. No tachypnea or significant respiratory distress. She is coughing infrequently. Tachycardic in triage pulse 106. Blood pressure 120 order 66. Septic bundle was activated after initial chest x-ray shows multifocal pneumonia. Patient is given 30 cc/kg bolus for her tachycardia and started on Rocephin and azithromycin for community-acquired pneumonia coverage. Patient's remaining laboratory studies show a large leukocytosis of 25,000 consistent with her pneumonia. No anemia or platelet concerns. Electrolytes show some dehydration with elevated BUN and creatinine, low sodium and chloride. Negative lactic acid, normal glucose. Mildly elevated LFTs. Troponin initial 0.023., delta troponin pending. EKG shows sinus rhythm, isolated T-wave inversion in lead 3, no ST elevations. Patient felt improved after the fluids and oxygen supplementation. Antibiotics infusing, blood cultures were obtained. Discussion with hospitalist waiting for admission. Discussed with the hospitalist and we went over patient's clinical exam, historical elements, laboratory results and imaging. Patient was accepted to a telemetry monitored bed at this time. Family and patient were made aware of the diagnosis and plan of care and they were comfortable with admission. Patient remains hemodynamically stable with repeat blood pressure is 115/50, tachycardia is resolved. Remains afebrile. Medical Records Data Attestation: I reviewed the patient's medical records. Lab Data Attestation: I reviewed the patient's lab results. 05/26/25 17:57 05/26/25 17:57 Labs: Lab Results 05/26/25 05/26/25 Range/Units 17:57 20:04 WBC 25.3 H (4.5-10.0) K/mm3 RBC 4.44 (4.2-5.4) M/mm3 Hgb 12.6 D (12.0-15.0) g/dL Hct 38.9 (37.0-47.0) % MCV 87.6 (80-100) fl MCH 28.4 (26-34) pg MCHC 32.4 (32-36) g/dl RDW 13.4 (11.5-14.5) % Plt Count 268 (150-375) k/mm3 MPV 10.0 (7.4-10.4) fl Immature Gran % (Auto) 0.8 H (0-0.5) % Neut % (Auto) 90.5 H (45.5-73.1) % Lymph % (Auto) 3.2 L (18.3-44.2) % Knox % (Auto) 5.1 (2.6-8.5) % Eos % (Auto) 0.0 (0-4.4) % Baso % (Auto) 0.4 (0.2-1.2) % Lymph # (Auto) 0.80 L (0.9-3.2) K/mm3 Knox # (Auto) 1.3 H (0.1-0.6) K/mm3 Eos # (Auto) 0.0 (0-0.3) K/mm3 Baso # (Auto) 0.1 (0.0-0.1) K/mm3 Abs Immat Gran (auto) 0.19 H (0.00-0.031) K/mm3 Absolute Neuts (auto) 22.9 H (1.3-6.7) K/mm3 Absolute Nucleated RBC 0.000 (0.0-0.012) K/mm3 Nucleated RBC % 0.0 (0.0-0.2) % PT 15.4 H (11.1-14.7) Seconds INR 1.2 APTT 32.9 (22.3-36.8) Seconds Sodium 132 L (137-145) mmol/L Potassium 3.5 (3.4-5.0) mmol/L Chloride 97 L (98-107) mmol/L Carbon Dioxide 28 (22-30) mmol/L Anion Gap 7 (4-12) mmol/L BUN 24 H (7-17) mg/dL Creatinine 1.07 H (0.7-1.0) mg/dL Estim Creat Clear Calc 59 ml/min Estimated GFR 52 L (59 - ) Glucose 121 H (65-110) mg/dL Lactic Acid 1.4 (0.7-2.0) mmol/L Calcium 9.1 (8.4-10.2) mg/dL Total Bilirubin 1.2 (0.2-1.3) mg/dL AST 37 H (14-36) U/L ALT 43 H (6-35) U/L Alkaline Phosphatase 157 H (38-126) U/L Troponin I 0.023 (0.000-0.034) ng/mL C-Reactive Protein Pending Total Protein 7.1 (6.3-8.2) g/dL Albumin 3.7 (3.5-5.1) g/dL Lipase 42 (23-300) U/L Imaging Data Attestation: I personally reviewed and interpreted this imaging study as follows: My impression: Impressions Chest X-Ray 05/26/25 19:08 IMPRESSION: Patchy bilateral airspace disease may represent infection or edema. Critical Care Time Critical Care Time Critical Care Time: Yes Total Critical Care Time: 35 Discharge Plan Discharge Clinical Impression: Hypoxemia requiring supplemental oxygen, Acute hypoxemic respiratory failure, Multifocal pneumonia, Pleuritic chest pain Patient Disposition: Still a Patient Condition: Stable Patient Language: Telugu Prescriptions: No Action fluconazole 150 mg tablet 150 mg PO ONCE Qty: 2 0RF Rx Instructions: repeat in 72 hours if still with symptoms. atorvastatin 10 mg tablet See Rx Instructions .ROUTE .COMPLEX Qty: 90 2RF Dose Instruction: TAKE 1 TABLET BY MOUTH EVERY DAY Rx Instructions: TAKE 1 TABLET BY MOUTH EVERY DAY telmisartan-hydrochlorothiazid 80-12.5 mg tablet See Rx Instructions .ROUTE .COMPLEX Qty: 180 1RF Dose Instruction: TAKE 2 TABLETS BY MOUTH EVERY DAY Rx Instructions: TAKE 2 TABLETS BY MOUTH EVERY DAY sertraline 50 mg tablet See Rx Instructions .ROUTE .COMPLEX Qty: 90 0RF Dose Instruction: TAKE 1 TABLET BY MOUTH EVERY DAY Rx Instructions: TAKE 1 TABLET BY MOUTH EVERY DAY Follow-up/Referrals: Alberto Shaffer MD [Primary Care Provider] - Time of Disposition: 20:59
--- NOTE | 2025-05-26 20:41 | ECG_ITS ---
Test Date: 2025-05-26 20:40:50 Measurements Intervals [place] Rate: 84 P: 16 VT: 140 QRS: 19 QRSD: 94 T: 8 QT: 351 QTc: 416 Interpretive Statements SINUS RHYTHM LOW QRS VOLTAGE IN PRECORDIAL LEADS [QRS DEFLECTION < 1.0 mV IN CHEST LEADS] Compared to ECG 05/26/2025 17:49:05 Sinus tachycardia no longer present Electronically Signed On 05-27-2025 10:52:30 CDT by Donis Gordillo M.D.
[2025-05-26 21:10] LABS: CRP 38.5 mg/dL (<1.0)
[2025-05-26 21:37] LABS: Troponin I 0.020 ng/mL (0.000-0.034)
[2025-05-26 21:47] LABS: Influenza A QL RT-PCR Negative (Negative); Influenza B QL RT-PCR Negative (Negative); RSV RNA, RT-PCR Negative (Negative); SARS-CoV-2 RNA PCR Negative (Negative)
--- NOTE | 2025-05-26 22:50 | ADMGEN ---
This patient, Natasha Hogan, was admitted to [address] [place] [address] Room 310-01. Patient/family oriented to hospital policies and general routines including ID bracelet, bed and alarms, visiting hours, pain management, procedures, bathroom and other care routines, personal items, smoking policy, room service/diet, and visiting hours. Information on how to activate the Rapid Response Team has been discussed. Patient/Family are encouraged to report perceived risks to care and to ask questions if they do not understand what they are told or what they should do.
[2025-05-26] MEDS: SODIUM CHLORIDE 0.9% IV 1,000 ML 100 ML IV CONT (23:33)
[2025-05-27] VITALS (10 sets, daily range): BP systolic 104–132; BP diastolic 58–72; PULSE 87–98; RESP 18–20; TEMP 36.2–37.1; O2SAT 93
[2025-05-27 00:33] LABS: Troponin I 0.014 ng/mL (0.000-0.034)
--- NOTE | 2025-05-27 00:56 | P.HP_ITS ---
H&P: HPI History of Present Illness Date/Time: 05/26/25 23:50 Chief Complaint: Chest pain with breathing Narrative: 64-year-old female with a past medical history of essential hypertension, morbid obesity, essential hypertension, anxiety, mild restrictive lung disease and history of ARDS due to COVID back in 2020 who presented to the ER with pleuritic chest pain that started on the and was accompanied by development of dyspnea and worsening shortness of breath today. Patient reports that the pain worsened today made it almost impossible to take a deep breath. The pain radiated through to her back. She denied any cough or upper respiratory symptoms. She denies any recent ill contacts. She did have some chills on the night of the . She denied any measured fevers. She reports increased fatigue in a mild decrease in appetite. She denies any nausea or vomiting. She denied any abdominal pain or diarrhea prior to admission. However before she was transferred up to the medical floor she did develop watery brown loose stool. Since admission she has already had a 2nd diarrheal stool. She denies any urinary symptoms. She states that she gets yearly CT scans which demonstrated chronic ground-glass opacities in her lower lobes. Today she got to the point were she could not catch her breath and came to the ER for evaluation. The patient was noted to be satting 86% on room air when ambulating into the ER. She does not use home O2. She has not had any recurrent respiratory symptoms since she was released from the hospital from with COVID in 2020. She denies any recent ill contacts. She did get her flu shot and has state up-to-date on her COVID boosters. She has never received a RSV vaccine. Her COVID flu and RSV PCR were negative. Chest x-ray demonstrated patchy bilateral airspace opacities. She was afebrile in the ER but did have some tachypnea and mild tachycardia on initial vitals. Her white count was elevated to 25.3 with a neutrophil predominance. Her creatinine was mildly elevated from baseline and have mild hyponatremia and mild transaminitis with a significantly elevated CRP. Blood cultures were obtained and are pending. She was started on empiric antibiotic therapy with Rocephin and azithromycin. Patient reports that her weight is been stable. She is morbidly obese but denies known history of obstructive sleep apnea. She has never had a sleep study. She states her is never mentioned her snoring. Review of Systems 2 Review of Systems: 12 systems were reviewed with pertinent positives and negatives per HPI. Except as documented in the HPI, all other systems were reviewed and are negative. [facility] Past Medical History Medical History (Updated 05/27/25 @ 01:46 by Melisa Webber DO) Diastolic dysfunction Echocardiogram performed during hospitalization for severe COVID October 2020 EF greater than 70% grade 1 diastolic dysfunction Thymoma, malignant Resected and treated with radiation therapy NSVT (nonsustained ventricular tachycardia) Rhus dermatitis BMI greater than 40 Dyslipidemia Morbid (severe) obesity due to excess calories NSTEMI (non-ST elevated myocardial infarction) MARIA E (generalized anxiety disorder) Essential hypertension Surgical History Surgical History (Updated 05/27/25 @ 01:20 by Melisa Webber DO) H/O cardiac radiofrequency ablation Hx of cholecystectomy H/O colonoscopy with polypectomy Status post thymectomy (2020) Family History Family History Father Hypertension Carcinoma of colon Dementia UTI (urinary tract infection) Mother Hypertension Dementia Sibling Malignant neoplasm of prostate Social History Social History (Updated 05/27/25 @ 01:30 by Melisa Webber DO) Social History: She lives with her they have been since 1987. 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 She quit smoking when she was diagnosed with COVID in 2020. Typically she smoked about a pack in a week. Socially drinks alcohol no marijuana or illicit drugs. Code status: DNR/DNI per patient request. However patient states she would be amendable to pressor support and noninvasive ventilatory support. Surrogate decision maker: Smoking packs per day: 1 Smoking cigarettes per day: 20.0 Years smoked: 10 Smoking pack-years: 10.00 Smoking status: Former smoker Second hand tobacco smoke exposure: No Alcohol intake: current Drinks per week: 1 Substance use: never Substance use type: does not use Do You Feel Safe in your Home?: Yes Lack of Transportation: No Lack of Food: Never True Current Housing: I Have Housing Concerned About Future Housing: No Difficulty Paying Gas/Electric Bills: No Difficulty Paying for Meds: No Currently Unemployed: No Education: Associate Degree Difficulty w/ Childcare or Family Care: No Living arrangements: with family 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 Gender identity (if verbalized by the patient): Female Sexual Orientation (if Verbalized by the Patient): Straight or Heterosexual Spiritual care concerns: No Meds Home Medications and Allergies Home Medications ?Medication ?Instructions ?Recorded ?Confirmed ?Type atorvastatin 10 mg tablet See Rx Instructions .Route 08/13/24 05/26/25 Rx .COMPLEX #90 tabs telmisartan 80 See Rx Instructions .Route 03/07/25 05/26/25 Rx mg-hydrochlorothiazide 12.5 mg .COMPLEX #180 tabs tablet sertraline 50 mg tablet See Rx Instructions .Route 05/02/25 05/26/25 Rx .COMPLEX #90 tabs Allergies Allergy/AdvReac Type Severity Reaction Status Date / Time No Known Allergies Allergy Mild Verified 11/09/23 15:41 Vital Signs Vital Signs - 24 hr 05/26/25 17:41 05/26/25 18:44 05/26/25 20:25 Temperature 97.2 F L Pulse Rate 106 H 89 Respiratory Rate 20 18 Blood Pressure 121/66 98/67 L Pulse Oximetry 98 94 95 Oxygen Delivery Room Air Nasal Cannula Oxygen Flow Rate 2 05/26/25 21:04 05/26/25 21:58 05/26/25 22:28 Temperature 98.7 F 97.8 F 98.3 F Pulse Rate 85 88 87 Respiratory Rate 18 18 18 Blood Pressure 105/65 111/80 103/74 Pulse Oximetry 100 96 94 Oxygen Delivery Oxygen Flow Rate 05/26/25 22:56 05/26/25 23:03 05/26/25 23:20 Temperature 98.4 F Pulse Rate 90 86 85 Respiratory Rate 18 20 Blood Pressure 114/62 Pulse Oximetry 92 96 Oxygen Delivery Nasal Cannula Oxygen Flow Rate 2 Exam 2 Narrative: Weight 113.6 kg BMI 44.4 Const: Other: Morbidly obese, mildly ill-appearing, appears stated age HENMT: Other: Mucous membranes are dry, bottom lip is scabbed dried and cracked, no oral pharyngeal erythema, crowded posterior oropharynx, nasal cannula in place Eyes: Other: Pupils are equal and reactive, no scleral icterus, no conjunctival pallor Neck: Other: Large neck circumference, no lymphadenopathy Resp: Other: Crackles left lower lobe, crackles right upper middle and lower lobe with more coarse crackles on the right, conversational tachypnea Cardio: Other: Regular rate, regular rhythm, no murmur, no JVD, 2+ bilateral radial and pedal pulses GI: Other: Obese, soft, nontender Back/Spine/Pelvis: Other: No CVA tenderness Skin: Other: Warm to touch, non jaundice, no pallor Neuro: Other: Alert oriented, speech is clear, no facial asymmetry, no localizing neurologic deficits noted during the course of conversation Extrem: Other: No clubbing, cyanosis or edema, moves all extremities equally Psych: Other: Mildly anxious but otherwise appropriate mood and affect, pleasant and cooperative, judgment and insight intact H&P: Results Labs Labs: Laboratory Tests 05/26/25 17:57 05/26/25 17:57 05/26/25 05/26/25 05/26/25 17:57 20:04 21:01 WBC 25.3 H RBC 4.44 Hgb 12.6 D Hct 38.9 MCV 87.6 MCH 28.4 MCHC 32.4 RDW 13.4 Plt Count 268 MPV 10.0 Immature Gran % (Auto) 0.8 H Neut % (Auto) 90.5 H Lymph % (Auto) 3.2 L [place] % (Auto) 5.1 Eos % (Auto) 0.0 Baso % (Auto) 0.4 Lymph # (Auto) 0.80 L [place] # (Auto) 1.3 H Eos # (Auto) 0.0 Baso # (Auto) 0.1 Abs Immat Gran (auto) 0.19 H Absolute Neuts (auto) 22.9 H Absolute Nucleated RBC 0.000 Nucleated RBC % 0.0 PT 15.4 H INR 1.2 APTT 32.9 Sodium 132 L Potassium 3.5 Chloride 97 L Carbon Dioxide 28 Anion Gap 7 BUN 24 H Creatinine 1.07 H Estim Creat Clear Calc 59 Estimated GFR 52 L Glucose 121 H Lactic Acid 1.4 Calcium 9.1 Total Bilirubin 1.2 AST 37 H ALT 43 H Alkaline Phosphatase 157 H Troponin I 0.023 0.020 C-Reactive Protein 38.5 H Total Protein 7.1 Albumin 3.7 Lipase 42 Influenza A (RT-PCR) Influenza B (RT-PCR) RSV (RT-PCR) SARS-CoV-2 RNA (RT-PCR) Urine Pneumococcal Ag 05/26/25 05/26/25 05/26/25 21:03 21:04 23:26 WBC RBC Hgb Hct MCV MCH MCHC RDW Plt Count MPV Immature Gran % (Auto) Neut % (Auto) Lymph % (Auto) [place] % (Auto) Eos % (Auto) Baso % (Auto) Lymph # (Auto) [place] # (Auto) Eos # (Auto) Baso # (Auto) Abs Immat Gran (auto) Absolute Neuts (auto) Absolute Nucleated RBC Nucleated RBC % PT INR APTT Sodium Potassium Chloride Carbon Dioxide Anion Gap BUN Creatinine Estim Creat Clear Calc Estimated GFR Glucose Lactic Acid Calcium Total Bilirubin AST ALT Alkaline Phosphatase Troponin I 0.014 D C-Reactive Protein Total Protein Albumin Lipase Influenza A (RT-PCR) Negative Influenza B (RT-PCR) Negative RSV (RT-PCR) Negative SARS-CoV-2 RNA (RT-PCR) Negative Urine Pneumococcal Ag Pending Impressions Chest X-Ray 05/26/25 19:08 IMPRESSION: Patchy bilateral airspace disease may represent infection or edema. EKG: Or sinus tachycardia rate 100 low-voltage QRS QTC 416 All imaging and EKGs personally reviewed and interpreted. And unless stated otherwise agree with radiologic and cardiology interpretation. Assessment and Plan Assessment and plan (1) Acute hypoxemic respiratory failure: Code(s): J96.01 - Acute respiratory failure with hypoxia Status: Acute (2) Multifocal pneumonia: Code(s): J18.8 - Other pneumonia, unspecified organism Status: Acute (3) Pleuritic chest pain: Code(s): R07.81 - Pleurodynia Status: Acute (4) Transaminitis: Code(s): R74.01 - Elevation of levels of liver transaminase levels Status: Acute (5) Acute hyponatremia: Code(s): E87.1 - Hypo-osmolality and hyponatremia Status: Acute (6) Acute kidney injury: Code(s): N17.9 - Acute kidney failure, unspecified Status: Acute (7) Morbid (severe) obesity due to excess calories: Code(s): E66.01 - Morbid (severe) obesity due to excess calories Status: Acute (8) BMI greater than 40: Status: Acute (9) Essential hypertension: Code(s): I10 - Essential (primary) hypertension Status: Chronic (10) MARIA E (generalized anxiety disorder): Code(s): F41.1 - Generalized anxiety disorder Status: Acute (11) Counseling regarding advanced directives: Code(s): Z71.89 - Other specified counseling Status: Acute Plan Patient has acute hypoxic respiratory failure due to multifocal community- acquired pneumonia. Patient been started empiric antibiotic therapy with Rocephin and azithromycin. The patient meets sepsis criteria with leukocytosis, tachycardia in the setting of acute infection. Will repeat CBC in a.m.. Blood cultures have been obtained and are pending. Patient received 30 mL/kilos fluid bolus in the ER. Patient's mucous membranes are still dry and the patient has evidence of acute kidney injury so at this time will hold the patient's home hydrochlorothiazide and will continue an additional 1 L normal saline overnight and then re-evaluate electrolyte panel in a.m.. Patient also has transaminitis likely due to sepsis. Will repeat CMP in a.m.. Patient does have some mild hyponatremia likely due to intravascular volume depletion and dehydration. Patient has now developed diarrhea given hyponatremia diarrhea and the patient's age she is certainly at increased risk for Legionella. Will check urine Legionella antigen as well as urine pneumococcal antigen and mycoplasma nasal pharyngeal PCR. Patient is complaining of chest pain but chest pain is due to pneumonia and pleuritic in nature. Cardiac enzymes are negative. EKGs do not demonstrate any evidence of cardiac ischemia. Will continue patient's home angiotensin receptor blaise and anxiety medications. P.r.n. medications for pain, nausea and GI symptoms have been provided as needed. The patient states that she and her are working on setting up there living trust. She states she also wants to set up advanced directives. Discussion regarding goals of care was conducted. The patient states that she would want all care until the point where her heart stopped were she could not breathe on her own. In that instance if she could not survive with noninvasive ventilatory support or if her heart were to stop she would want staff to a lower to have a natural . She would want her to be her surrogate decision maker. Will place consult for care coordination to provide assistance in setting of advanced directives. Quality VTE Prophylaxis VTE prophylaxis: pharmacologic ordered (Lovenox 40 mg subQ q.12 hours (q.12 hours dosing due to BMI greater than 40)) Hospitalist MIPS Advance Care Plan I have confirmed that the patient's Advanced Care Plan is present, code status is documented, or surrogate decision maker is listed in patient medical record.: Yes Medication Reconciliation I have utilized all available resources to obtain, update and review the patients current medications (includes all prescriptions, OTC, herbals, cannabis, and nutritional supplements).: Yes
--- NOTE | 2025-05-27 02:09 | PC.NURSE ---
([phone]) Charting completed by Bhumika Vogt (RN-pending), under this RNs user profile and confirmed documentation is accurate.
[2025-05-27] MEDS: ACETAMINOPHEN 325 MG TABLET 650 MG PO ×2 (05:08→11:00)
[2025-05-27 05:56] LABS: Toxigenic C. Diff NEGATIVE (NEGATIVE)
[2025-05-27 06:32] LABS: Hematocrit 35.5 % (37.0-47.0); Hemoglobin 11.1 g/dL (12.0-15.0); Immature Granulocyte Percent A 1.3 % (0-0.5); Lymphocytes Absolute Auto 0.54 K/mm3 (0.9-3.2); Mean Corpuscular HGB Conc 31.3 g/dl (32-36); Mean Corpuscular Hemoglobin 28.2 pg (26-34); Mean Corpuscular Volume 90.3 fl (80-100); Nucleated Red Blood Cells Absolute Auto 0.000 K/mm3 (0.0-0.012); Nucleated Red Blood Cells Perc 0.0 % (0.0-0.2); Platelet Count Result 271 k/mm3 (150-375); Red Blood Count 3.93 M/mm3 (4.2-5.4); White Blood Count 24.4 K/mm3 (4.5-10.0)
[2025-05-27 06:53] LABS: Alanine Aminotransferase 30 U/L (6-35); Albumin Level 3.1 g/dL (3.5-5.1); Alkaline Phosphatase 168 U/L (38-126); Anion Gap 8 mmol/L (4-12); Aspartate Amino Transferase 30 U/L (14-36); Bilirubin,Total 0.9 mg/dL (0.2-1.3); Blood Urea Nitrogen 24 mg/dL (7-17); Calcium 8.1 mg/dL (8.4-10.2); Carbon Dioxide 24 mmol/L (22-30); Chloride 102 mmol/L (98-107); Estimated CRCL calculation 71 ml/min; Estimated Glomerular Filt Rate > 60; Glucose 105 mg/dL (65-110); Potassium 3.4 mmol/L (3.4-5.0); Sodium 134 mmol/L (137-145); Total Protein 6.1 g/dL (6.3-8.2)
[2025-05-27] MEDS: SERTRALINE HCL 50 MG TABLET PO (08:22)
[2025-05-27] MEDS: ENOXAPARIN 40 MG/0.4 ML SYRINGE SUB-Q ×2 (08:22→21:11)
[2025-05-27] MEDS: TELMISARTAN 40 MG TABLET 160 MG PO (08:22)
[2025-05-27] MEDS: ATORVASTATIN 10 MG TABLET PO (08:22)
--- NOTE | 2025-05-27 15:02 | PM.IMPN ---
Progress Note: A&P Assessment and Plan (1) Acute hypoxemic respiratory failure: Code(s): J96.01 - Acute respiratory failure with hypoxia Status: Acute Assessment and Plan: NO hx of COPD or asthma. Respiratory failure from COVID in 2019 but has not needed oxygen since then. Remote smoking hx --Wean O2 as tolerated for sats >92% --Treatment of pneumonia as noted below (2) Multifocal pneumonia: Code(s): J18.8 - Other pneumonia, unspecified organism Status: Acute Assessment and Plan: Went on a trip [facility] [place] for vacation last week and was feeling well. Achy/flu-like on Tuesday and developed shortness of breath on Tuesday. Worsening so came to the hospital for evaluation. Met sepsis criteria with leukocytosis, tachycardia in the setting of acute infection. Also reports loose stools, but feels this is not out of the ordinary for her. Had a poor appetite and wasn't drinking or eating much, but denies nausea or vomiting. No fevers. High risk for legionella pneumonia with recent freshwater exposure. Flu/Covid/RSV negative. Sodium was low 05/26 Chest x-ray: Patchy bilateral airspace disease may represent infection or edema --Started on empiric Ceftriaxone and azithromycin. Continue --Reporting pleuric chest pain. Overall suspect related to infection. Check D-dimer & nt-proBNP. D-dimer elevated, so Chest CT r/o PE --Urine ag for legionella and pneuococcal ag pending, serum mycoplasma pending --Pulmonary consult if increased O2 requirements (3) Pleuritic chest pain: Code(s): R07.81 - Pleurodynia Status: Acute Assessment and Plan: Pleuritic chest pain midchest, nontender to palpation, taking shallow breaths 2/2 pain. CRP 38.5 --Pain control tylenol, add toradol scheduled 30mg q8 x2 days --Risk for DVT with recent travel and obesity but would not explain diffuse crackles (4) Transaminitis: Code(s): R74.01 - Elevation of levels of liver transaminase levels Status: Acute Assessment and Plan: Normalized (5) Acute hyponatremia: Code(s): E87.1 - Hypo-osmolality and hyponatremia Status: Acute (6) Acute kidney injury: Code(s): N17.9 - Acute kidney failure, unspecified Status: Acute Assessment and Plan: Creatinine 1.07>0.87 (7) Morbid (severe) obesity due to excess calories: Code(s): E66.01 - Morbid (severe) obesity due to excess calories Status: Acute (8) BMI greater than 40: Status: Acute Assessment and Plan: Weight loss counseling (9) Essential hypertension: Code(s): I10 - Essential (primary) hypertension Status: Chronic (10) MARIA E (generalized anxiety disorder): Code(s): F41.1 - Generalized anxiety disorder Status: Acute (11) Counseling regarding advanced directives: Code(s): Z71.89 - Other specified counseling Status: Acute Assessment and Plan: The patient stated that she and her are working on setting up there living trust. She states she also wants to set up advanced directives. Discussion regarding goals of care was conducted. The patient states that she would want all care until the point where her heart stopped were she could not breathe on her own. In that instance if she could not survive with noninvasive ventilatory support or if her heart were to stop she would want staff to a lower to have a natural . She would want her to be her surrogate decision maker. Consult placed for care coordination to provide assistance in setting of advanced directives. Time Spent With Patient Time: 59 minutes Subjective Date/time seen: 05/27/25 15:02 Interval history: Pleurtic chest pain and shortness of breath about the same WBC 25.3>24.4 Review of Systems Review of Systems: 12 systems were reviewed with pertinent positives and negatives per HPI. Except as documented in the HPI, all other systems were reviewed and are negative. Exam Narrative: General - Awake and alert. Mild respiratory distress, on 2L O2 Eyes - PERRLA, EOM intact ENT - No thrush, No erythema Neck - No noticeable or palpable swelling Lymph Nodes - No lymphadenopathy Cardiovascular - RRR no m/r/g, no JVD Lungs: Clear to auscultation, No wheezing, Tachypnea, shallow breaths, diffuse crackles Skin - Skin warm and dry, no wounds or rashes Abdomen - Normal bowel sounds, abdomen soft and nontender Extremities - No edema, cyanosis or clubbing Musculoskeletal - 5/5 strength, normal range of motion, no swollen or erythematous joints. Neurological ? Alert and oriented x 3, CN 2-12 grossly intact. Psych: Normal mood and affect Objective Data Vital Signs Vital Signs: Vital Signs - 24 hr 05/26/25 17:41 05/26/25 18:44 05/26/25 20:25 Temperature 97.2 F L Pulse Rate 106 H 89 Respiratory Rate 20 18 Blood Pressure 121/66 98/67 L Pulse Oximetry 98 94 95 Oxygen Delivery Room Air Nasal Cannula Oxygen Flow Rate 2 05/26/25 21:04 05/26/25 21:58 05/26/25 22:28 Temperature 98.7 F 97.8 F 98.3 F Pulse Rate 85 88 87 Respiratory Rate 18 18 18 Blood Pressure 105/65 111/80 103/74 Pulse Oximetry 100 96 94 Oxygen Delivery Oxygen Flow Rate 05/26/25 22:56 05/26/25 23:03 05/26/25 23:20 Temperature 98.4 F Pulse Rate 90 86 85 Respiratory Rate 18 20 Blood Pressure 114/62 Pulse Oximetry 92 96 Oxygen Delivery Nasal Cannula Oxygen Flow Rate 2 05/27/25 00:00 05/27/25 04:00 05/27/25 05:23 Temperature 98.8 F Pulse Rate 89 97 98 Respiratory Rate 20 Blood Pressure 132/71 Pulse Oximetry 93 Oxygen Delivery Oxygen Flow Rate 05/27/25 08:00 05/27/25 08:00 05/27/25 14:00 Temperature 97.1 F L Pulse Rate 98 89 Respiratory Rate 20 Blood Pressure 104/58 L Pulse Oximetry 93 93 Oxygen Delivery Nasal Cannula Oxygen Flow Rate 2 Intake/Output Intake/Output: Intake & Output 05/24/25 05/25/25 05/26/25 05/27/25 23:59 23:59 23:59 23:59 Intake Total 3300 780 Balance 3300 780 Meds/Results Medications: Active Medications Generic Name Dose Route Start Last Admin Trade Name Freq PRN Reason Stop Dose Admin Acetaminophen 650 mg 05/26/25 20:54 05/27/25 11:00 Acetaminophen 325 Mg Tablet PO 650 mg Q4H PRN Administration Mild Pain (1-3) or Fever Al Hydrox/Mg Hydrox/Simethicone 30 ml 05/26/25 21:02 Mag Hydrox/Al Hydrox/Simeth 30 Ml Udc PO Q6H PRN Indigestion Atorvastatin Calcium 10 mg 05/27/25 09:00 05/27/25 08:22 Atorvastatin 10 Mg Tablet PO 10 mg DAILY WILLIE Administration Docusate Sodium 100 mg 05/26/25 21:02 Docusate Sodium 100 Mg Capsule PO Q12H PRN Constipation Enoxaparin Sodium 40 mg 05/27/25 09:00 05/27/25 08:22 Enoxaparin 40 Mg/0.4 Ml Syringe SUB-Q 40 mg Q12HR WILLIE Administration Hydrochlorothiazide 25 mg 05/27/25 09:00 Hydrochlorothiazide 25 Mg Tablet PO QAM WILLIE Ceftriaxone Sodium 1 gm/ 50 mls @ 100 mls/hr 05/27/25 21:00 Sodium Chloride IVPB Q24H WILLIE Azithromycin 500 mg/ Sodium 250 mls @ 250 mls/hr 05/27/25 21:00 Chloride IVPB 05/31/25 21:59 Q24H WILLIE Ondansetron HCl 4 mg 05/26/25 20:54 Ondansetron Inj 4 Mg/2 Ml Vial IV PUSH Q4H PRN Nausea Sertraline HCl 50 mg 05/27/25 09:00 05/27/25 08:22 Sertraline Hcl 50 Mg Tablet PO 50 mg DAILY WILLIE Administration Telmisartan 160 mg 05/27/25 09:00 05/27/25 08:22 Telmisartan 40 Mg Tablet PO 160 mg QAM WILLIE Administration Radiology Results: ITS Impressions Chest X-Ray 05/26/25 19:08 IMPRESSION: Patchy bilateral airspace disease may represent infection or edema. Labs Labs: Laboratory Results - last 24 hr 05/26/25 05/26/25 05/26/25 17:57 20:04 21:01 WBC 25.3 H RBC 4.44 Hgb 12.6 D Hct 38.9 MCV 87.6 MCH 28.4 MCHC 32.4 RDW 13.4 Plt Count 268 MPV 10.0 Immature Gran % (Auto) 0.8 H Neut % (Auto) 90.5 H Lymph % (Auto) 3.2 L [place] % (Auto) 5.1 Eos % (Auto) 0.0 Baso % (Auto) 0.4 Lymph # (Auto) 0.80 L [place] # (Auto) 1.3 H Eos # (Auto) 0.0 Baso # (Auto) 0.1 Abs Immat Gran (auto) 0.19 H Absolute Neuts (auto) 22.9 H Absolute Nucleated RBC 0.000 Nucleated RBC % 0.0 PT 15.4 H INR 1.2 APTT 32.9 Sodium 132 L Potassium 3.5 Chloride 97 L Carbon Dioxide 28 Anion Gap 7 BUN 24 H Creatinine 1.07 H Estim Creat Clear Calc 59 Estimated GFR 52 L Glucose 121 H Lactic Acid 1.4 Calcium 9.1 Total Bilirubin 1.2 AST 37 H ALT 43 H Alkaline Phosphatase 157 H Troponin I 0.023 0.020 C-Reactive Protein 38.5 H Total Protein 7.1 Albumin 3.7 Lipase 42 C. difficile (PCR) Influenza A (RT-PCR) Influenza B (RT-PCR) RSV (RT-PCR) SARS-CoV-2 RNA (RT-PCR) Urine Pneumococcal Ag 05/26/25 05/26/25 05/26/25 21:03 21:04 23:26 WBC RBC Hgb Hct MCV MCH MCHC RDW Plt Count MPV Immature Gran % (Auto) Neut % (Auto) Lymph % (Auto) [place] % (Auto) Eos % (Auto) Baso % (Auto) Lymph # (Auto) [place] # (Auto) Eos # (Auto) Baso # (Auto) Abs Immat Gran (auto) Absolute Neuts (auto) Absolute Nucleated RBC Nucleated RBC % PT INR APTT Sodium Potassium Chloride Carbon Dioxide Anion Gap BUN Creatinine Estim Creat Clear Calc Estimated GFR Glucose Lactic Acid Calcium Total Bilirubin AST ALT Alkaline Phosphatase Troponin I 0.014 D C-Reactive Protein Total Protein Albumin Lipase C. difficile (PCR) Influenza A (RT-PCR) Negative Influenza B (RT-PCR) Negative RSV (RT-PCR) Negative SARS-CoV-2 RNA (RT-PCR) Negative Urine Pneumococcal Ag Cancelled 05/27/25 05/27/25 04:53 05:49 WBC 24.4 H RBC 3.93 L Hgb 11.1 L Hct 35.5 L MCV 90.3 MCH 28.2 MCHC 31.3 L RDW 13.6 Plt Count 271 MPV 10.3 Immature Gran % (Auto) 1.3 H Neut % (Auto) 90.6 H Lymph % (Auto) 2.2 L [place] % (Auto) 5.3 Eos % (Auto) 0.2 Baso % (Auto) 0.4 Lymph # (Auto) 0.54 L [place] # (Auto) 1.3 H Eos # (Auto) 0.1 Baso # (Auto) 0.1 Abs Immat Gran (auto) 0.32 H Absolute Neuts (auto) 22.1 H Absolute Nucleated RBC 0.000 Nucleated RBC % 0.0 PT INR APTT Sodium 134 L Potassium 3.4 Chloride 102 Carbon Dioxide 24 Anion Gap 8 BUN 24 H Creatinine 0.87 Estim Creat Clear Calc 71 Estimated GFR > 60 Glucose 105 Lactic Acid Calcium 8.1 L Total Bilirubin 0.9 AST 30 ALT 30 Alkaline Phosphatase 168 H Troponin I C-Reactive Protein Total Protein 6.1 L Albumin 3.1 L Lipase C. difficile (PCR) Negative Influenza A (RT-PCR) Influenza B (RT-PCR) RSV (RT-PCR) SARS-CoV-2 RNA (RT-PCR) Urine Pneumococcal Ag Quality VTE Prophylaxis VTE prophylaxis: pharmacologic ordered (Lovenox 40 mg subQ q.12 hours (q.12 hours dosing due to BMI greater than 40)) Hospitalist MIPS Advance Care Plan I have confirmed that the patient's Advanced Care Plan is present, code status is documented, or surrogate decision maker is listed in patient medical record.: Yes Medication Reconciliation The patient is not eligible for med reconciliation; the patient is in a emergent medical situation where delaying treatment would jeopardize the patients health.: Yes
[2025-05-27 15:33] LABS: NT Pro B Type Natriuretic Pept 1740 pg/mL (19.9-100)
[2025-05-27] MEDS: PANTOPRAZOLE 40 MG TABLET PO (17:19)
[2025-05-27] MEDS: cefTRIAXone 1 GM in SODIUM CHLORIDE 0.9% IV 50 ML 100 ML IVPB (21:13)
[2025-05-27] MEDS: KETOROLAC 30 MG/ML VIAL (*BKC) IV PUSH (21:17)
[2025-05-27] MEDS: AZITHROMYCIN IV 500 MG in SODIUM CHLORIDE 0.9% IV 250 ML IVPB (21:54)
--- NOTE | 2025-05-27 22:45 | ECG_ITS ---
Test Date: 2025-05-27 22:54:28 Measurements Intervals [place] Rate: 99 P: 33 MA: 139 QRS: 10 QRSD: 93 T: 12 QT: 336 QTc: 432 Interpretive Statements SINUS RHYTHM Compared to ECG 05/26/2025 20:40:50 No significant changes Electronically Signed On 05-28-2025 16:39:04 CDT by Rema Foster M.D.
[2025-05-28] VITALS (17 sets, daily range): BP systolic 105–124; BP diastolic 63–77; PULSE 74–97; RESP 16–20; TEMP 36.1–37.2; O2SAT 92–97
--- NOTE | 2025-05-28 | ECHO_ITS ---
Patient Info Name: Natasha Hogan Age: 64 years : 1960 Gender: Female Ht: 63 in Wt: 250 lbs BSA: 2.31 m2 HR: 95 bpm BP: 108 / 73 mmHg Technical Quality: Poor Exam Date: 05/28/2025 11:30 AM Patient Status: I Admit Date: 05/26/2025 Exam Type: CA echo dop color flow w con Complete two-dimensional, color flow and Doppler transthoracic echocardiogram is performed with contrast to opacify the left ventricle and to improve the deliniation of the left ventricle endocardial borders. Staff Referring Physician: Anjelica Fan Physician Relations Specialist: Clari Bennett Attending Provider: Melisa Webber DO Contrast/Agitated Saline Contrast/Ag. Saline: Definity Amount: 8.00 ml Administered By: Clari Bennett Existing IV Access: Yes IV Access Condition: patent with no signs of infiltration Summary 1. Left ventricular chamber dimension is normal. 2. Left ventricular systolic function is normal, estimated at 60-65. 3. There is mildly increased left ventricular wall thickness. 4. The left ventricular diastolic function is grade I diastolic dysfunction. 5. Right ventricular systolic function is normal. 6. There is mild tricuspid valve regurgitation. Left Ventricle Left ventricular chamber dimension is normal. Left ventricular systolic function is normal, estimated at 60-65. There is mildly increased left ventricular wall thickness. The left ventricular diastolic function is grade I diastolic dysfunction. Right Ventricle Right ventricular chamber dimension is normal. Right ventricular systolic function is normal. Left Atria Left atrial chamber dimension is normal. Right Atria Right atrial chamber dimension is normal. Atrial Septum Intact interatrial septum visualized by color flow imaging. Aortic Valve The aortic valve is trileaflet. There is no aortic valve stenosis. There is no aortic valve regurgitation. There is mild aortic valve calcification. Pulmonic Valve The pulmonic valve is not well visualized. There is trace pulmonic regurgitation. Mitral Valve There is trace mitral valve regurgitation. Tricuspid Valve There is mild tricuspid valve regurgitation. Pericardium/Pleural There is no pericardial effusion. Inferior Vena Cava Normal inferior vena cava with >50% collapse upon inspiration consistent with normal right atrial pressure, 3 mmHg. Aorta The aortic root size at the sinus of Valsalva is normal. Left Ventricular Outflow Tract Name Value Normal LVOT 2D LVOT Diameter 2.0 cm LVOT Doppler LVOT Peak Velocity 135 cm/s LVOT Peak Gradient 7 mmHg LVOT Mean Gradient 4 mmHg LVOT VTI 24 cm LVOT VTI/AV VTI Ratio 0.7 LVOT Stroke Volume 78 ml LVOT CO 6.0 l/min LVOT CI 2.6 l/min/m2 Pulmonic Valve Name Value Normal PV Doppler PV Peak Velocity 112 cm/s PV Peak Gradient 5 mmHg Mitral Valve Name Value Normal MV Doppler MV Peak Gradient 5 mmHg MV Mean Gradient 1 mmHg MV Area (Cont Eq VTI) 3.1 cm2 MV Regurgitation Doppler MR Peak Gradient 11 mmHg MV Diastolic Function MV E Peak Velocity 85 cm/s MV A Peak Velocity 110 cm/s MV E/A 0.8 MV Decel Time (PW) 176 ms MV Annular TDI MV E/e' (Septal) 7.8 MV E/e' (Lateral) 7.0 MV E/e' (Average) 7.4 Tricuspid Valve Name Value Normal TV Regurgitation Doppler TR Peak Velocity 252 cm/s TR Peak Gradient 11 mmHg Estimated PAP/RSVP RA Pressure 3 mmHg <=5 PA Systolic Pressure 28 mmHg <36 RV Systolic Pressure 28 mmHg <36 TV Annular TDI TV Lateral Letitia s' Velocity 13.7 cm/s >=9.5 Aortic Valve Name Value Normal AV Doppler AV Peak Velocity 176 cm/s AV Peak Gradient 12 mmHg AV Mean Gradient 6 mmHg AV VTI 32 cm AV Area (Cont Eq VTI) 2.5 cm2 >=3.0 AV Area (Cont Eq Marco) 2.5 cm2 AV DI (Marco) 0.77 AV Regurgitation 2D LVOT Area 3.3 cm2 Ventricles Name Value Normal LV Dimensions 2D/MM IVS Diastolic Thickness (2D) 0.8 cm 0.6-1.0 LVID Diastole (2D) 4.9 cm 3.8-5.2 LVIW Diastolic Thickness (2D) 0.9 cm 0.6-0.9 LVID Systole (2D) 3.1 cm 2.2-3.5 LVOT Diameter 2.0 cm LV Mass (2D Cubed) 133.81 g 67.00-162.00 LV Mass Index (2D Cubed) 58 g/m2 43-95 Relative Wall Thickness (2D) 0.35 <=0.42 LV Fractional Shortening/Ejection Fraction 2D/MM LV Fractional Shortening (2D) 36 % 27-45 LV EF (2D Teichholz) 65 % LV Diastolic Volume (4C MOD) 114 ml LV EF (4C MOD) 61 % LV Diastolic Volume (2C MOD) 123 ml LV EF (2C MOD) 59 % LV Diastolic Volume (BP MOD) 120 ml 46-106 LV Diastolic Volume Index (BP MOD) 52 ml/m2 29-61 LV Systolic Volume (BP MOD) 47 ml 14-42 LV Systolic Volume Index (BP MOD) 20 ml/m2 8-24 LV EF (BP MOD) 61 % 54-74 LV Diastolic Length (4C) 7.4 cm LV Systolic Length (4C) 5.8 cm LV Stroke Volume (4C MOD) 69 ml Report Signatures
[2025-05-28] MEDS: IPRATROPIUM 0.5 MG/ALBUTEROL SULFATE 2.5 MG AMPUL.NEB 3 ML INHALATION ×3 (01:26→16:15)
[2025-05-28] MEDS: ACETAMINOPHEN 325 MG TABLET 650 MG PO (05:41)
--- NOTE | 2025-05-28 06:51 | PC.NURSE ---
Assessment and documentation completed by Johanna Tripathi (RN-pending), documentation confirmed accurate by this RN.
--- NOTE | 2025-05-28 07:04 | PM.IMPN ---
Progress Note: A&P Assessment and Plan (1) Acute hypoxemic respiratory failure: Code(s): J96.01 - Acute respiratory failure with hypoxia Status: Acute Assessment and Plan: No hx of COPD or asthma. Respiratory failure from COVID in 2019 but has not needed oxygen since then. Remote smoking hx --Wean O2 as tolerated for sats >92% --Treatment of pneumonia as noted below (2) Multifocal pneumonia: Code(s): J18.8 - Other pneumonia, unspecified organism Status: Acute Assessment and Plan: Went on a boat trip to [facility] for vacation last week and was feeling well. Achy/flu-like on Tuesday and developed shortness of breath on Tuesday. Worsening so came to the hospital for evaluation. Met sepsis criteria with leukocytosis, tachycardia in the setting of acute infection. Also reports loose stools, but feels this is not out of the ordinary for her. Had a poor appetite and wasn't drinking or eating much, but denies nausea or vomiting. No fevers. Ddx legionella pneumonia, mycoplasma, other Flu/Covid/RSV negative. Sodium was low Improving overnight, moving more air on exam but still speaking in short sentences 05/26 Chest x-ray: Patchy bilateral airspace disease may represent infection or edema --Started on empiric Ceftriaxone and azithromycin. Continue --Reporting pleuric chest pain. Overall suspect related to infection. Check D-dimer & nt-proBNP. D-dimer elevated --Urine ag for legionella and pneuococcal ag pending, serum mycoplasma pending --Pulmonary consult if increased O2 requirements 05/[address] evidence of acute pulmonary embolus. Bilateral peripheral and peribronchovascular consolidation affecting all lobes, concerning for pneumonia. Small bilateral pleural effusions. Mild cardiomegaly. Trace pericardial effusion. (3) Pleuritic chest pain: Code(s): R07.81 - Pleurodynia Status: Acute Assessment and Plan: Pleuritic chest pain midchest, nontender to palpation, taking shallow breaths 2/2 pain. CRP 38.5. Improving --Pain control tylenol, add toradol scheduled 30mg q8 x2 days --Risk for DVT with recent travel and obesity but would not explain diffuse crackles. CT negative for PE. --Check LE dopplers (4) Transaminitis: Code(s): R74.01 - Elevation of levels of liver transaminase levels Status: Acute Assessment and Plan: Normalized (5) Acute hyponatremia: Code(s): E87.1 - Hypo-osmolality and hyponatremia Status: Acute (6) Acute kidney injury: Code(s): N17.9 - Acute kidney failure, unspecified Status: Acute Assessment and Plan: Creatinine 1.07>0.87 (7) Morbid (severe) obesity due to excess calories: Code(s): E66.01 - Morbid (severe) obesity due to excess calories Status: Acute (8) BMI greater than 40: Status: Acute Assessment and Plan: Weight loss counseling (9) Essential hypertension: Code(s): I10 - Essential (primary) hypertension Status: Chronic (10) MARIA E (generalized anxiety disorder): Code(s): F41.1 - Generalized anxiety disorder Status: Acute (11) Counseling regarding advanced directives: Code(s): Z71.89 - Other specified counseling Status: Acute Assessment and Plan: The patient stated that she and her are working on setting up there living trust. She states she also wants to set up advanced directives. Discussion regarding goals of care was conducted. The patient states that she would want all care until the point where her heart stopped were she could not breathe on her own. In that instance if she could not survive with noninvasive ventilatory support or if her heart were to stop she would want staff to a lower to have a natural . She would want her to be her surrogate decision maker. Consult placed for care coordination to provide assistance in setting of advanced directives. Time Spent With Patient Time: 56 minutes Subjective Date/time seen: 05/28/25 09:10 Interval history: Labs this morning pending O2 weaned to 1L, less tachypneic and moving more air on exam Chest pain improving Review of Systems Review of Systems: 12 systems were reviewed with pertinent positives and negatives per HPI. Except as documented in the HPI, all other systems were reviewed and are negative. Exam Narrative: General - Awake and alert. Mild respiratory distress, on 1L O2 Eyes - PERRLA, EOM intact ENT - No thrush, No erythema Neck - No noticeable or palpable swelling Lymph Nodes - No lymphadenopathy Cardiovascular - RRR no m/r/g, no JVD Lungs: Clear to auscultation, No wheezing, Tachypnea improving, diffuse crackles Skin - Skin warm and dry, no wounds or rashes Abdomen - Normal bowel sounds, abdomen soft and nontender Extremities - No edema, cyanosis or clubbing Musculoskeletal - 5/5 strength, normal range of motion, no swollen or erythematous joints. Neurological ? Alert and oriented x 3, CN 2-12 grossly intact. Psych: Normal mood and affect Objective Data Vital Signs Vital Signs: Vital Signs - 24 hr 05/27/25 08:00 05/27/25 08:00 05/27/25 12:00 Temperature Pulse Rate 97 87 Respiratory Rate Blood Pressure Pulse Oximetry 93 Oxygen Delivery Nasal Cannula Oxygen Flow Rate 2 05/27/25 14:00 05/27/25 20:00 05/27/25 20:00 Temperature 97.1 F L Pulse Rate 89 89 89 Respiratory Rate 20 Blood Pressure 104/58 L Pulse Oximetry 93 Oxygen Delivery Oxygen Flow Rate 05/27/25 20:14 05/27/25 21:07 05/27/25 23:08 Temperature 98.6 F Pulse Rate 92 Respiratory Rate 18 Blood Pressure 112/72 Pulse Oximetry 93 93 93 Oxygen Delivery Nasal Cannula Nasal Cannula Oxygen Flow Rate 2 2 05/28/25 00:00 05/28/25 01:26 05/28/25 01:31 Temperature Pulse Rate 86 94 97 Respiratory Rate 18 18 Blood Pressure Pulse Oximetry Oxygen Delivery Oxygen Flow Rate 05/28/25 04:00 05/28/25 05:06 Temperature 97.4 F L Pulse Rate 74 80 Respiratory Rate 18 Blood Pressure 108/73 Pulse Oximetry 96 Oxygen Delivery Oxygen Flow Rate Intake/Output Intake/Output: Intake & Output 05/25/25 05/26/25 05/27/25 05/28/25 23:59 23:59 23:59 23:59 Intake Total 3300 2320 400 Balance 3300 2320 400 Meds/Results Medications: Active Medications Generic Name Dose Route Start Last Admin Trade Name Freq PRN Reason Stop Dose Admin Acetaminophen 650 mg 05/26/25 20:54 05/28/25 05:41 Acetaminophen 325 Mg Tablet PO 650 mg Q4H PRN Administration Mild Pain (1-3) or Fever Al Hydrox/Mg Hydrox/Simethicone 30 ml 05/26/25 21:02 Mag Hydrox/Al Hydrox/Simeth 30 Ml Udc PO Q6H PRN Indigestion Albuterol/Ipratropium 3 ml 05/28/25 00:00 05/28/25 01:26 Ipratropium 0.5 Mg/Albuterol Sulfate 2.5 Mg Ampul.Neb 3 Ml INHALATION 3 ml Q8HRT WILLIE Administration Atorvastatin Calcium 10 mg 05/27/25 09:00 05/27/25 08:22 Atorvastatin 10 Mg Tablet PO 10 mg DAILY WILLIE Administration Docusate Sodium 100 mg 05/26/25 21:02 Docusate Sodium 100 Mg Capsule PO Q12H PRN Constipation Enoxaparin Sodium 40 mg 05/27/25 09:00 05/27/25 21:11 Enoxaparin 40 Mg/0.4 Ml Syringe SUB-Q 40 mg Q12HR WILLIE Administration Hydrochlorothiazide 25 mg 05/27/25 09:00 Hydrochlorothiazide 25 Mg Tablet PO QAM WILLIE Ceftriaxone Sodium 1 gm/ 50 mls @ 100 mls/hr 05/27/25 21:00 05/27/25 21:43 Sodium Chloride IVPB Infused Q24H WILLIE Infusion Azithromycin 500 mg/ Sodium 250 mls @ 250 mls/hr 05/27/25 21:00 05/27/25 22:54 Chloride IVPB 05/31/25 21:59 Infused Q24H WILLIE Infusion Ketorolac Tromethamine 30 mg 05/27/25 15:10 05/28/25 05:44 Ketorolac 30 Mg/Ml Vial (*[facility]) IV PUSH Not Given Q8HR WILLIE Ondansetron HCl 4 mg 05/26/25 20:54 Ondansetron Inj 4 Mg/2 Ml Vial IV PUSH Q4H PRN Nausea Pantoprazole Sodium 40 mg 05/27/25 15:10 05/27/25 17:19 Pantoprazole 40 Mg Tablet PO 40 mg QAM WILLIE Administration Sertraline HCl 50 mg 05/27/25 09:00 05/27/25 08:22 Sertraline Hcl 50 Mg Tablet PO 50 mg DAILY WILLIE Administration Telmisartan 160 mg 05/27/25 09:00 05/27/25 08:22 Telmisartan 40 Mg Tablet PO 160 mg QAM WILLIE Administration Radiology Results: ITS Impressions Chest X-Ray 05/26/25 19:08 IMPRESSION: Patchy bilateral airspace disease may represent infection or edema. Chest CTA 05/27/25 18:05 IMPRESSION: No CT evidence of acute pulmonary embolus. Bilateral peripheral and peribronchovascular consolidation affecting all lobes, concerning for pneumonia. Small bilateral pleural effusions. Mild cardiomegaly. Trace pericardial effusion. Labs Labs: Laboratory Results - last 24 hr 05/26/25 05/27/25 05/27/25 21:04 05:49 14:45 WBC 24.4 H RBC 3.93 L Hgb 11.1 L Hct 35.5 L MCV 90.3 MCH 28.2 MCHC 31.3 L RDW 13.6 Plt Count 271 MPV 10.3 Immature Gran % (Auto) 1.3 H Neut % (Auto) 90.6 H Lymph % (Auto) 2.2 L Edgar % (Auto) 5.3 Eos % (Auto) 0.2 Baso % (Auto) 0.4 Lymph # (Auto) 0.54 L Edgar # (Auto) 1.3 H Eos # (Auto) 0.1 Baso # (Auto) 0.1 Abs Immat Gran (auto) 0.32 H Absolute Neuts (auto) 22.1 H Absolute Nucleated RBC 0.000 Nucleated RBC % 0.0 D-Dimer 3.34 H NT-Pro-B Natriuret Pep 1740 H Urine Pneumococcal Ag Cancelled Quality VTE Prophylaxis VTE prophylaxis: pharmacologic ordered (Lovenox 40 mg subQ q.12 hours (q.12 hours dosing due to BMI greater than 40)) Hospitalist [facility] Advance Care Plan I have confirmed that the patient's Advanced Care Plan is present, code status is documented, or surrogate decision maker is listed in patient medical record.: Yes Medication Reconciliation I have utilized all available resources to obtain, update and review the patients current medications (includes all prescriptions, OTC, herbals, cannabis, and nutritional supplements).: Yes
[2025-05-28] MEDS: ATORVASTATIN 10 MG TABLET PO (08:59)
[2025-05-28] MEDS: PANTOPRAZOLE 40 MG TABLET PO (08:59)
[2025-05-28] MEDS: SERTRALINE HCL 50 MG TABLET PO (08:59)
[2025-05-28] MEDS: TELMISARTAN 40 MG TABLET 160 MG PO (08:59)
[2025-05-28] MEDS: ENOXAPARIN 40 MG/0.4 ML SYRINGE SUB-Q ×2 (09:00→20:26)
[2025-05-28] MEDS: PERFLUTREN LIPID MICROSPHERES 1.5 ML VIAL DILUTED TO 10 ML TOTAL VOLUME IV PUSH (12:10)
--- NOTE | 2025-05-28 12:19 | IVDEFINITY ---
Prior to administration of IV Definity the patient was educated on the risks and benefits of the imaging enhancing agent including potential adverse side effects. The patient verbalized understanding. Allergies were verified. No exclusion criteria were identified and at least one of the following inclusion criteria were met: 1) physician request, 2) patient technically difficult to image (per the [place] [employer] guidelines of two or more segments not discernable within the apical view), or 3) questionable left ventricular function. ?
[2025-05-28] MEDS: CALCIUM CARBONATE (TUMS) 500 MG (200 MG ELEMENTAL) PO (17:48)
[2025-05-28] MEDS: cefTRIAXone 1 GM in SODIUM CHLORIDE 0.9% IV 50 ML 100 ML IVPB (20:14)
[2025-05-28] MEDS: AZITHROMYCIN IV 500 MG in SODIUM CHLORIDE 0.9% IV 250 ML IVPB (21:07)
[2025-05-29] VITALS (19 sets, daily range): BP systolic 100–127; BP diastolic 54–78; PULSE 73–92; RESP 16–20; TEMP 36.3–37; O2SAT 90–96
[2025-05-29] MEDS: IPRATROPIUM 0.5 MG/ALBUTEROL SULFATE 2.5 MG AMPUL.NEB 3 ML INHALATION ×3 (00:11→16:01)
[2025-05-29] MEDS: ACETAMINOPHEN 325 MG TABLET 650 MG PO (00:35)
[2025-05-29 05:52] LABS: Hematocrit 33.4 % (37.0-47.0); Hemoglobin 10.6 g/dL (12.0-15.0); Immature Granulocyte Percent A 3.9 % (0-0.5); Lymphocytes Absolute Auto 1.20 K/mm3 (0.9-3.2); Mean Corpuscular HGB Conc 31.7 g/dl (32-36); Mean Corpuscular Hemoglobin 28.1 pg (26-34); Mean Corpuscular Volume 88.6 fl (80-100); Nucleated Red Blood Cells Absolute Auto 0.000 K/mm3 (0.0-0.012); Nucleated Red Blood Cells Perc 0.0 % (0.0-0.2); Platelet Count Result 336 k/mm3 (150-375); Red Blood Count 3.77 M/mm3 (4.2-5.4); White Blood Count 12.7 K/mm3 (4.5-10.0)
[2025-05-29 06:15] LABS: Anion Gap 6 mmol/L (4-12); Blood Urea Nitrogen 20 mg/dL (7-17); Calcium 8.8 mg/dL (8.4-10.2); Carbon Dioxide 28 mmol/L (22-30); Chloride 106 mmol/L (98-107); Estimated CRCL calculation 81 ml/min; Estimated Glomerular Filt Rate > 60; Glucose 94 mg/dL (65-110); Magnesium 2.1 mg/dL (1.6-2.3); Potassium 3.2 mmol/L (3.4-5.0); Sodium 140 mmol/L (137-145)
[2025-05-29] MEDS: POTASSIUM CHLORIDE 20 MEQ ER TABLET 40 MEQ PO (08:43)
[2025-05-29] MEDS: SERTRALINE HCL 50 MG TABLET PO (08:44)
[2025-05-29] MEDS: ATORVASTATIN 10 MG TABLET PO (08:44)
[2025-05-29] MEDS: TELMISARTAN 40 MG TABLET 160 MG PO (08:44)
[2025-05-29] MEDS: PANTOPRAZOLE 40 MG TABLET PO (08:44)
[2025-05-29] MEDS: ENOXAPARIN 40 MG/0.4 ML SYRINGE SUB-Q ×2 (08:45→22:20)
--- NOTE | 2025-05-29 17:34 | PM.IMPN ---
Progress Note: A&P Assessment and Plan (1) Acute hypoxemic respiratory failure: Code(s): J96.01 - Acute respiratory failure with hypoxia Status: Acute Assessment and Plan: No hx of COPD or asthma. Respiratory failure from COVID in 2019 but has not needed oxygen since then. Remote smoking hx --Wean O2 as tolerated for sats >92% --Treatment of pneumonia as noted below (2) Multifocal pneumonia: Code(s): J18.8 - Other pneumonia, unspecified organism Status: Acute Assessment and Plan: Went on a boat trip to [facility] for vacation last week and was feeling well. Achy/flu-like on Tuesday and developed shortness of breath on Tuesday. Worsening so came to the hospital for evaluation. Met sepsis criteria with leukocytosis, tachycardia in the setting of acute infection. Also reports loose stools, but feels this is not out of the ordinary for her. Had a poor appetite and wasn't drinking or eating much, but denies nausea or vomiting. No fevers. Ddx legionella pneumonia, mycoplasma, other Flu/Covid/RSV negative. Sodium was low Improving overnight, moving more air on exam but still speaking in short sentences 05/26 Chest x-ray: Patchy bilateral airspace disease may represent infection or edema --Started on empiric Ceftriaxone and azithromycin. Continue --Reporting pleuric chest pain. Overall suspect related to infection. Check D-dimer & nt-proBNP. D-dimer elevated --Urine ag for legionella and pneuococcal ag pending, serum mycoplasma pending --Pulmonary consult if increased O2 requirements 05/[address] evidence of acute pulmonary embolus. Bilateral peripheral and peribronchovascular consolidation affecting all lobes, concerning for pneumonia. Small bilateral pleural effusions. Mild cardiomegaly. Trace pericardial effusion. (3) Pleuritic chest pain: Code(s): R07.81 - Pleurodynia Status: Acute Assessment and Plan: Pleuritic chest pain midchest, nontender to palpation, taking shallow breaths 2/2 pain. CRP 38.5. Improving --Pain control tylenol, add toradol scheduled 30mg q8 x2 days --Risk for DVT with recent travel and obesity but would not explain diffuse crackles. CT negative for PE. --Check LE dopplers (4) Transaminitis: Code(s): R74.01 - Elevation of levels of liver transaminase levels Status: Acute Assessment and Plan: Normalized (5) Acute hyponatremia: Code(s): E87.1 - Hypo-osmolality and hyponatremia Status: Acute (6) Acute kidney injury: Code(s): N17.9 - Acute kidney failure, unspecified Status: Acute Assessment and Plan: Creatinine 1.07>0.87 (7) Morbid (severe) obesity due to excess calories: Code(s): E66.01 - Morbid (severe) obesity due to excess calories Status: Acute (8) BMI greater than 40: Status: Acute Assessment and Plan: Weight loss counseling (9) Essential hypertension: Code(s): I10 - Essential (primary) hypertension Status: Chronic (10) MARIA E (generalized anxiety disorder): Code(s): F41.1 - Generalized anxiety disorder Status: Acute (11) Counseling regarding advanced directives: Code(s): Z71.89 - Other specified counseling Status: Acute Assessment and Plan: The patient stated that she and her are working on setting up there living trust. She states she also wants to set up advanced directives. Discussion regarding goals of care was conducted. The patient states that she would want all care until the point where her heart stopped were she could not breathe on her own. In that instance if she could not survive with noninvasive ventilatory support or if her heart were to stop she would want staff to a lower to have a natural . She would want her to be her surrogate decision maker. Consult placed for care coordination to provide assistance in setting of advanced directives. Time Spent With Patient Time: 57 minutes Subjective Date/time seen: 05/29/25 17:34 Interval history: Overall improving. Likely discharge tomorrow. Weaning oxygen Walking O2 Review of Systems Review of Systems: 12 systems were reviewed with pertinent positives and negatives per HPI. Except as documented in the HPI, all other systems were reviewed and are negative. Exam Narrative: General - Awake and alert. Mild respiratory distress, on 1L O2 Eyes - PERRLA, EOM intact ENT - No thrush, No erythema Neck - No noticeable or palpable swelling Lymph Nodes - No lymphadenopathy Cardiovascular - RRR no m/r/g, no JVD Lungs: Clear to auscultation, No wheezing, Tachypnea improving, diffuse crackles Skin - Skin warm and dry, no wounds or rashes Abdomen - Normal bowel sounds, abdomen soft and nontender Extremities - No edema, cyanosis or clubbing Musculoskeletal - 5/5 strength, normal range of motion, no swollen or erythematous joints. Neurological ? Alert and oriented x 3, CN 2-12 grossly intact. Psych: Normal mood and affect Objective Data Vital Signs Vital Signs: Vital Signs - 24 hr 05/28/25 20:00 05/28/25 21:32 05/28/25 21:39 Temperature 98.9 F Pulse Rate 86 87 78 Respiratory Rate 18 20 Blood Pressure 124/77 Pulse Oximetry 95 97 Oxygen Delivery Nasal Cannula Oxygen Flow Rate 2 Fraction of Inspired Oxygen 05/29/25 00:00 05/29/25 00:13 05/29/25 04:00 Temperature Pulse Rate 82 80 77 Respiratory Rate 20 Blood Pressure Pulse Oximetry Oxygen Delivery Oxygen Flow Rate Fraction of Inspired Oxygen 05/29/25 05:08 05/29/25 08:00 05/29/25 08:15 Temperature 97.8 F Pulse Rate 77 81 90 Respiratory Rate 16 16 Blood Pressure 100/65 Pulse Oximetry 96 94 Oxygen Delivery Nasal Cannula Oxygen Flow Rate 2 Fraction of Inspired Oxygen 05/29/25 08:20 05/29/25 08:51 05/29/25 08:56 Temperature Pulse Rate 85 Respiratory Rate 20 Blood Pressure 122/78 Pulse Oximetry 91 Oxygen Delivery Nasal Cannula Oxygen Flow Rate 1 Fraction of Inspired Oxygen 05/29/25 09:04 05/29/25 12:00 05/29/25 13:53 Temperature 97.4 F L Pulse Rate 92 80 88 Respiratory Rate 20 20 Blood Pressure 127/54 L Pulse Oximetry 90 Oxygen Delivery Oxygen Flow Rate Fraction of Inspired Oxygen 05/29/25 16:00 05/29/25 16:02 05/29/25 16:02 Temperature Pulse Rate 77 73 73 Respiratory Rate 20 20 Blood Pressure Pulse Oximetry 92 Oxygen Delivery Room Air Oxygen Flow Rate Fraction of Inspired Oxygen 05/29/25 16:14 Temperature Pulse Rate 77 Respiratory Rate 20 Blood Pressure Pulse Oximetry Oxygen Delivery Oxygen Flow Rate Fraction of Inspired Oxygen Intake/Output Intake/Output: Intake & Output 05/26/25 05/27/25 05/28/25 05/29/25 23:59 23:59 23:59 23:59 Intake Total 3300 2320 1560 1430 Balance 3300 2320 1560 1430 Meds/Results Medications: Active Medications Generic Name Dose Route Start Last Admin Trade Name Freq PRN Reason Stop Dose Admin Acetaminophen 650 mg 05/26/25 20:54 05/29/25 00:35 Acetaminophen 325 Mg Tablet PO 650 mg Q4H PRN Administration Mild Pain (1-3) or Fever Al Hydrox/Mg Hydrox/Simethicone 30 ml 05/26/25 21:02 Mag Hydrox/Al Hydrox/Simeth 30 Ml Udc PO Q6H PRN Indigestion Albuterol/Ipratropium 3 ml 05/28/25 00:00 05/29/25 16:01 Ipratropium 0.5 Mg/Albuterol Sulfate 2.5 Mg Ampul.Neb 3 Ml INHALATION 3 ml Q8HRT WILLIE Administration Atorvastatin Calcium 10 mg 05/27/25 09:00 05/29/25 08:44 Atorvastatin 10 Mg Tablet PO 10 mg DAILY WILLIE Administration Calcium Carbonate 200 mg 05/28/25 15:57 05/28/25 17:48 Calcium Carbonate (Tums) 500 Mg (200 Mg Elemental) PO 200 mg Q6H PRN Administration Indigestion Docusate Sodium 100 mg 05/26/25 21:02 Docusate Sodium 100 Mg Capsule PO Q12H PRN Constipation Enoxaparin Sodium 40 mg 05/27/25 09:00 05/29/25 08:45 Enoxaparin 40 Mg/0.4 Ml Syringe SUB-Q 40 mg Q12HR WILLIE Administration Hydrochlorothiazide 25 mg 05/27/25 09:00 Hydrochlorothiazide 25 Mg Tablet PO QAM WILLIE Ceftriaxone Sodium 1 gm/ 50 mls @ 100 mls/hr 05/27/25 21:00 05/28/25 20:14 Sodium Chloride IVPB 100 mls/hr Q24H WILLIE Administration Azithromycin 500 mg/ Sodium 250 mls @ 250 mls/hr 05/27/25 21:00 05/28/25 21:07 Chloride IVPB 05/31/25 21:59 250 mls/hr Q24H WILLIE Administration Ketorolac Tromethamine 30 mg 05/29/25 12:57 Ketorolac 30 Mg/Ml Vial (*Bkc) IV PUSH Q8HR PRN Pain Rated 4-6 Ondansetron HCl 4 mg 05/26/25 20:54 Ondansetron Inj 4 Mg/2 Ml Vial IV PUSH Q4H PRN Nausea Pantoprazole Sodium 40 mg 05/27/25 15:10 05/29/25 08:44 Pantoprazole 40 Mg Tablet PO 40 mg QAM WILLIE Administration Sertraline HCl 50 mg 05/27/25 09:00 05/29/25 08:44 Sertraline Hcl 50 Mg Tablet PO 50 mg DAILY WILLIE Administration Telmisartan 160 mg 05/27/25 09:00 05/29/25 08:44 Telmisartan 40 Mg Tablet PO 160 mg QAM WILLIE Administration Radiology Results: ITS Impressions Chest X-Ray 05/26/25 19:08 IMPRESSION: Patchy bilateral airspace disease may represent infection or edema. Chest CTA 05/27/25 18:05 IMPRESSION: No CT evidence of acute pulmonary embolus. Bilateral peripheral and peribronchovascular consolidation affecting all lobes, concerning for pneumonia. Small bilateral pleural effusions. Mild cardiomegaly. Trace pericardial effusion. Venous Doppler Study 05/28/25 21:30 IMPRESSION: Patent bilateral lower extremity veins. No evidence of deep venous thrombosis. Labs Labs: Laboratory Results - last 24 hr 05/27/25 05/29/25 02:05 05:16 WBC 12.7 H RBC 3.77 L Hgb 10.6 L Hct 33.4 L MCV 88.6 MCH 28.1 MCHC 31.7 L RDW 13.9 Plt Count 336 MPV 9.7 Immature Gran % (Auto) 3.9 H Neut % (Auto) 72.4 Lymph % (Auto) 9.5 L Nelson % (Auto) 8.5 Eos % (Auto) 4.8 H Baso % (Auto) 0.9 Lymph # (Auto) 1.20 Nelson # (Auto) 1.1 H Eos # (Auto) 0.6 H Baso # (Auto) 0.1 Abs Immat Gran (auto) 0.50 H Absolute Neuts (auto) 9.2 H Absolute Nucleated RBC 0.000 Nucleated RBC % 0.0 Sodium 140 Potassium 3.2 L Chloride 106 Carbon Dioxide 28 Anion Gap 6 BUN 20 H Creatinine 0.76 Estim Creat Clear Calc 81 Estimated GFR > 60 Glucose 94 Calcium 8.8 Phosphorus 3.5 Magnesium 2.1 M. pneumoniae (PCR) Negative Quality VTE Prophylaxis VTE prophylaxis: pharmacologic ordered (Lovenox 40 mg subQ q.12 hours (q.12 hours dosing due to BMI greater than 40)) Hospitalist [facility] Advance Care Plan I have confirmed that the patient's Advanced Care Plan is present, code status is documented, or surrogate decision maker is listed in patient medical record.: Yes Medication Reconciliation I have utilized all available resources to obtain, update and review the patients current medications (includes all prescriptions, OTC, herbals, cannabis, and nutritional supplements).: Yes
[2025-05-29] MEDS: cefTRIAXone 1 GM in SODIUM CHLORIDE 0.9% IV 50 ML 100 ML IVPB (21:37)
[2025-05-29] MEDS: AZITHROMYCIN IV 500 MG in SODIUM CHLORIDE 0.9% IV 250 ML IVPB (22:21)
[2025-05-30] VITALS (12 sets, daily range): BP systolic 131–132; BP diastolic 67–70; PULSE 73–99; RESP 16–18; TEMP 36.9–37; O2SAT 86–93
--- NOTE | 2025-05-30 02:46 | PCRCNOTE ---
Window of time for administration has passed. See next scheduled administration.
[2025-05-30 06:01] LABS: Hematocrit 33.7 % (37.0-47.0); Hemoglobin 10.8 g/dL (12.0-15.0); Mean Corpuscular HGB Conc 32.0 g/dl (32-36); Mean Corpuscular Hemoglobin 28.3 pg (26-34); Mean Corpuscular Volume 88.2 fl (80-100); Platelet Count Result 403 k/mm3 (150-375); Red Blood Count 3.82 M/mm3 (4.2-5.4); White Blood Count 10.2 K/mm3 (4.5-10.0)
[2025-05-30 06:31] LABS: Band Neutrophils Percent 2 % (0-6); Basophils Absolute Manual 0.10 K/mm3 (0.0-0.1); Basophils Percent Manual 1 % (0-1); Eosinophils Absolute Manual 0.71 K/mm3 (0.02-0.50); Eosinophils Percent Manual 7 % (0-4); Lymphocytes Absolute Manual 2.04 K/mm3 (1.1-4.5); Lymphocytes Percent Manual 20.0 % (18-44); Monocytes Absolute Manual 0.30 K/mm3 (0.1-0.90); Monocytes Percent Manual 3 % (3-9); Neutrophils Absolute Manual 7.03 K/mm3 (1.3-6.7); Neutrophils Percent Manual 67 % (46-73); Total Cells Counted 100
[2025-05-30 06:32] LABS: Anion Gap 5 mmol/L (4-12); Blood Urea Nitrogen 17 mg/dL (7-17); Calcium 8.7 mg/dL (8.4-10.2); Carbon Dioxide 27 mmol/L (22-30); Chloride 105 mmol/L (98-107); Estimated CRCL calculation 79 ml/min; Estimated Glomerular Filt Rate > 60; Glucose 97 mg/dL (65-110); Potassium 3.7 mmol/L (3.4-5.0); Schistocytes None Seen; Sodium 137 mmol/L (137-145)
[2025-05-30] MEDS: IPRATROPIUM 0.5 MG/ALBUTEROL SULFATE 2.5 MG AMPUL.NEB 3 ML INHALATION (08:30)
--- NOTE | 2025-05-30 08:50 | P.DS_ITS ---
DS: Admitting Diagnosis Discharge Date 05/30/2025 Admitting Diagnosis Shortness of breath Pneumonia DS: Summary Hospital Course Reason for hospitalization: 64-year-old female with a history of essential hypertension, morbid obesity, anxiety, mild restrictive lung disease, and prior ARDS due to COVID-19 (2020) presented with acute onset pleuritic chest pain, dyspnea, and hypoxemia. Copied from [facility] 05/27: 64-year-old female with a past medical history of essential hypertension, morbid obesity, essential hypertension, anxiety, mild restrictive lung disease and history of ARDS due to COVID back in 2020 who presented to the ER with pleuritic chest pain that started on the and was accompanied by development of dyspnea and worsening shortness of breath today. Patient reports that the pain worsened today made it almost impossible to take a deep breath. The pain radiated through to her back. She denied any cough or upper respiratory symptoms. She denies any recent ill contacts. She did have some chills on the night of the . She denied any measured fevers. She reports increased fatigue in a mild decrease in appetite. She denies any nausea or vomiting. She denied any abdominal pain or diarrhea prior to admission. However before she was transferred up to the medical floor she did develop watery brown loose stool. Since admission she has already had a 2nd diarrheal stool. She denies any urinary symptoms. She states that she gets yearly CT scans which demonstrated chronic ground-glass opacities in her lower lobes. Today she got to the point were she could not catch her breath and came to the ER for evaluation. The patient was noted to be satting 86% on room air when ambulating into the ER. She does not use home O2. She has not had any recurrent respiratory symptoms since she was released from the hospital from with COVID in 2020. She denies any recent ill contacts. She did get her flu shot and has state up-to-date on her COVID boosters. She has never received a RSV vaccine. Her COVID flu and RSV PCR were negative. Chest x-ray demonstrated patchy bilateral airspace opacities. She was afebrile in the ER but did have some tachypnea and mild tachycardia on initial vitals. Her white count was elevated to 25.3 with a neutrophil predominance. Her creatinine was mildly elevated from baseline and have mild hyponatremia and mild transaminitis with a significantly elevated CRP. Blood cultures were obtained and are pending. She was started on empiric antibiotic therapy with Rocephin and azithromycin. Patient reports that her weight is been stable. She is morbidly obese but denies known history of obstructive sleep apnea. She has never had a sleep study. She states her is never mentioned her snoring. Hospital Course: Hospital Course: The patient presented to the emergency department with pleuritic chest pain radiating to her back, associated with worsening shortness of breath, chills, increased fatigue, and decreased appetite. She denied cough, fever, or recent sick contacts. On arrival, she was hypoxemic (O2 saturation 86% on room air with ambulation), tachypneic, and mildly tachycardic. She developed loose, watery stools prior to transfer to the medical floor. Initial workup revealed leukocytosis with neutrophil predominance, mild acute kidney injury, hyponatremia, transaminitis, and significantly elevated CRP. Chest x-ray showed patchy bilateral airspace opacities. COVID, influenza, and RSV PCRs were negative. She was started on empiric ceftriaxone and azithromycin for presumed multifocal pneumonia. Blood cultures were obtained and pending at discharge. CTA chest ruled out pulmonary embolism but confirmed bilateral peripheral and peribronchovascular consolidation, small bilateral pleural effusions, mild cardiomegaly, and trace pericardial effusion. Urine antigens for legionella and pneumococcus, as well as serum mycoplasma, were sent and pending at discharge. Final were negative Her pleuritic chest pain improved with scheduled acetaminophen and a short course of toradol. Oxygen requirements decreased, and she was weaned to room air with stable saturations. Her creatinine and transaminases normalized during hospitalization. Diarrhea resolved without further intervention. She remained afebrile throughout her stay. She received counseling regarding weight loss and advanced directives. The patient expressed her wishes regarding goals of care and identified her as her surrogate decision maker. Care coordination was consulted to assist with advanced directives. Acute hypoxemic respiratory failure: Admitted for acute respiratory failure 2/[address] showed multifocal pneumonia. Weaned off oxygen at rest, but still needing 2L O2 with activity.No hx of COPD or asthma. Respiratory failure from COVID in 2019 but has not needed oxygen since then. Remote smoking hx. Continue to wean O2 as tolerated for sats >92%. Treating pneumonia as below. Wean off oxygen with activity Multifocal pneumonia: Went on a boat trip to [facility] for vacation last week and was feeling well. Achy/flu-like on Tuesday and developed shortness of breath on Tuesday. Worsening so came to the hospital for evaluation. Met sepsis criteria with leukocytosis, tachycardia in the setting of acute infection. Also reports loose stools, but feels this is not out of the ordinary for her. Had a poor appetite and wasn't drinking or eating much, but denies nausea or vomiting. No fevers. Legionella, mycoplasma were negative. Flu/Covid/RSV negative. Sodium was low. Improving overnight, moving more air on exam but still speaking in short sentences on arrival, breathing significantly improved prior to discharge. Reported shortness of breath with activity only and was requiring 2L. 05/26 Chest x-ray: Patchy bilateral airspace disease may represent infection or edema --Started on empiric Ceftriaxone, received 3 doses and continued with Augmentin 875/125 BID x3 more days --Received azithromycin x 3 doses, and continued for 2 additional doses --Reported pleuric chest pain, resolved with 2 doses of toradol Suspect musculoskeletal 2/2 cough and increased work of breathing D-dimer elevated & nt-proBNP. Urine ag for legionella, pneumococcal, and mycoplasma were negative. 05/[address] evidence of acute pulmonary embolus. Bilateral peripheral and peribronchovascular consolidation affecting all lobes, concerning for pneumonia. Small bilateral pleural effusions. Mild cardiomegaly. Trace pericardial effusion. Pleuritic chest pain: Pleuritic chest pain midchest, nontender to palpation, taking shallow breaths 2/2 pain. CRP 38.5. Improving. Pain controlled with tylenol, and toradol scheduled 30mg q8 x2 days. Risk for DVT with recent travel and obesity but would not explain diffuse crackles. CT negative for PE. Transaminitis: Normalized The patient stated that she and her are working on setting up there living trust. She states she also wants to set up advanced directives. Discussion regarding goals of care was conducted. The patient states that she would want all care until the point where her heart stopped were she could not breathe on her own. In that instance if she could not survive with noninvasive ventilatory support or if her heart were to stop she would want staff to a lower to have a natural . She would want her to be her surrogate decision maker. Consult placed for care coordination to provide assistance in setting of advanced directives. Status at Discharge Cognitive/behavioral status at discharge: A&OX4 Time Spent with Patient Time attestation: Total time spent providing and/or coordinating discharge services: Exam Narrative: General - Awake and alert. No respiratory distress, on 2L O2 with activity Eyes - PERRLA, EOM intact ENT - No thrush, No erythema Neck - No noticeable or palpable swelling Lymph Nodes - No lymphadenopathy Cardiovascular - RRR no m/r/g, no JVD Lungs: Clear to auscultation, No wheezing, Rare crackles. normal rate Skin - Skin warm and dry, no wounds or rashes Abdomen - Normal bowel sounds, abdomen soft and nontender Extremities - No edema, cyanosis or clubbing Musculoskeletal - 5/5 strength, normal range of motion, no swollen or erythematous joints. Neurological ? Alert and oriented x 3, CN 2-12 grossly intact. Psych: Normal mood and affect DS: Data Data Completed and Pending Labs on day of discharge: Labs from last 24 hours 05/30/25 05:30 WBC 10.2 H RBC 3.82 L Hgb 10.8 L Hct 33.7 L MCV 88.2 MCH 28.3 MCHC 32.0 RDW 14.0 Plt Count 403 H MPV 9.6 Immature Gran % (Auto) Not Reportable Neut % (Auto) Not Reportable Lymph % (Auto) Not Reportable Teller % (Auto) Not Reportable Eos % (Auto) Not Reportable Baso % (Auto) Not Reportable Lymph # (Auto) Not Reportable Teller # (Auto) Not Reportable Eos # (Auto) Not Reportable Baso # (Auto) Not Reportable Abs Immat Gran (auto) Not Reportable Absolute Neuts (auto) Not Reportable Absolute Nucleated RBC Not Reportable Total Counted 100 Neutrophils % (Manual) 67 Band Neutrophils % 2 Lymphocytes % (Manual) 20.0 Monocytes % (Manual) 3 Eosinophils % (Manual) 7 H Basophils % (Manual) 1 Nucleated RBC % Not Reportable Abs Neuts (Manual) 7.03 H Abs Lymphs (Manual) 2.04 Abs Monocytes (Manual) 0.30 Absolute Eos (Manual) 0.71 H Abs Basophils (Manual) 0.10 Platelet Estimate Adequate Schistocytes None seen Sodium 137 Potassium 3.7 Chloride 105 Carbon Dioxide 27 Anion Gap 5 BUN 17 Creatinine 0.78 Estim Creat Clear Calc 79 Estimated GFR > 60 Glucose 97 Calcium 8.7 Preliminary micro results at discharge 05/26/25 20:16 Blood Culture - Preliminary Blood 05/26/25 20:04 Blood Culture - Preliminary Blood Discharge Plan Discharge Attending physician on discharge: Anjelica Fan Consulting providers: Donis Gordillo; Rema Foster; Fab Lorenzo Discharging Clinician: Anjelica Fan Anticipated Discharge Date/Time: 05/30/25 13:25 Patient Disposition: Home Activity: no shower Diet: regular Discharge Instructions: Continue 2L of oxygen with activity. You will take 2 more days of azithromycin and 3 more days of Augmentin starting tonight. Follow up with your PCP in 1-2 weeks Patient Instructions: Antibiotic Form Patient Language: [place] Stand Alone Forms: General Discharge Information Follow-up/Referrals: Alberto Shaffer MD [Primary Care Provider] - 2 Weeks Discharge Medications: New azithromycin 500 mg tablet 500 mg PO HS 2 Days Qty: 2 0RF Rx Instructions: 2 additional days, 05/30 and 05/31 at bedtime amoxicillin-pot clavulanate 875-125 mg tablet 1 tablet PO Q12H Qty: 6 0RF Continued atorvastatin 10 mg tablet See Rx Instructions .ROUTE .COMPLEX Qty: 90 2RF Dose Instruction: TAKE 1 TABLET BY MOUTH EVERY DAY Rx Instructions: TAKE 1 TABLET BY MOUTH EVERY DAY telmisartan-hydrochlorothiazid 80-12.5 mg tablet See Rx Instructions .ROUTE .COMPLEX Qty: 180 1RF Dose Instruction: TAKE 2 TABLETS BY MOUTH EVERY DAY Rx Instructions: TAKE 2 TABLETS BY MOUTH EVERY DAY sertraline 50 mg tablet See Rx Instructions .ROUTE .COMPLEX Qty: 90 0RF Dose Instruction: TAKE 1 TABLET BY MOUTH EVERY DAY Rx Instructions: TAKE 1 TABLET BY MOUTH EVERY DAY Date of admission: 05/26/25 20:54 Primary Care Provider: Alberto Shaffer Admitting Provider: Melisa Webber Attending physician on admission: Anjelica Fan Condition: Stable Hospitalist MIPS Heart Failure (Exclusion) Patient has history of Heart Transplant or Left Ventricular Assistive Device?: No IF YES, STOP HERE Heart Failure (Qualifier) Patient has current or prior documentation of LVEF less than or equal to 40%, or mod/servere depressed LVSF?: No IF NO, STOP HERE
[2025-05-30] MEDS: PANTOPRAZOLE 40 MG TABLET PO (09:13)
[2025-05-30] MEDS: SERTRALINE HCL 50 MG TABLET PO (09:13)
[2025-05-30] MEDS: ENOXAPARIN 40 MG/0.4 ML SYRINGE SUB-Q (09:13)
[2025-05-30] MEDS: ATORVASTATIN 10 MG TABLET PO (09:13)
[2025-05-30] MEDS: TELMISARTAN 40 MG TABLET 160 MG PO (09:13)
--- NOTE | 2025-05-30 10:40 | P.CDI_ITS ---
CDI Query Clarification Request Please clarify if sepsis has been ruled in or ruled out. The medical chart reflects the following: ER documented: Patient has coarse asymmetric breath sounds and is hypoxic during ambulation here in the emergency department she was down to 86% requiring supplemental oxygen 2 L nasal cannula with improvement to 95%. No tachypnea or significant respiratory distress. She is coughing infrequently. Tachycardic in triage pulse 106. Blood pressure 120 order 66. Septic bundle was activated after initial chest x-ray shows multifocal pneumonia. Patient is given 30 cc/kg bolus for her tachycardia and started on Rocephin and azithromycin for community- acquired pneumonia coverage. Patient's remaining laboratory studies show a large leukocytosis of 25,000 consistent with her pneumonia. No anemia or platelet concerns. Electrolytes show some dehydration with elevated BUN and creatinine, low sodium and chloride. Negative lactic acid, normal glucose. Mildly elevated LFTs. Troponin initial 0.023., delta troponin pending. EKG shows sinus rhythm, isolated T-wave inversion in lead 3, no ST elevations. H&P states: Plan Patient has acute hypoxic respiratory failure due to multifocal community- acquired pneumonia. Patient been started empiric antibiotic therapy with Rocephin and azithromycin. The patient meets sepsis criteria with leukocytosis, tachycardia in the setting of acute infection. Will repeat CBC in a.m.. Blood cultures have been obtained and are pending. Patient received 30 mL/kilos fluid bolus in the ER. Patient's mucous membranes are still dry and the patient has evidence of acute kidney injury so at this time will hold the patient's home hydrochlorothiazide and will continue an additional 1 L normal saline overnight and then re-evaluate electrolyte panel in a.m.. Patient also has transaminitis likely due to sepsis WBC: 25.3, 24.4, 12.7 Lactic acid: 1.4 augmentin po azithromycin po azithromycin IV ceftriaxone IV
== END 2025-05-30 16:00 | disposition home or self-care (01) | DRG 871 ==
LOC: ANHED 20:59 → ANH3MEDSUR 22:24
PROVIDERS: Emergency Medicine; Admitting Provider Internal Medicine; Emergency Provider Student in an Organized Health Care Education/Training Program; PCP Family Medicine; Visit Provider Nurse Practitioner Acute Care
DX: A41.9 Sepsis, unspecified organism (principal); J18.9 Pneumonia, unspecified organism; J96.01 Acute respiratory failure with hypoxia; E87.1 Hypo-osmolality and hyponatremia; N17.9 Acute kidney failure, unspecified; Z68.41 Body mass index [BMI] 40.0-44.9, adult; J98.4 Other disorders of lung; U09.9 Post COVID-19 condition, unspecified; E66.01 Morbid (severe) obesity due to excess calories; F41.1 Generalized anxiety disorder; I10 Essential (primary) hypertension; E86.0 Dehydration; E78.5 Hyperlipidemia, unspecified; Z20.822 Contact with and (suspected) exposure to COVID-19; I25.2 Old myocardial infarction; Z90.49 Acquired absence of other specified parts of digestive tract; Z87.891 Personal history of nicotine dependence
CPT/HCPCS: 36415; 71046; 71275; 80048; 80053; 83605; 83690; 83735; 83880; 84100; 84484; 85025; 85380; 85610; 85730; 86140; 87040; 87449; 87493; 87581; 87637; 87899; 93005; 93970; 94618; 94640; 96365; 96367; 96375; 97161; 97165; 99285; A9270; C8929; J0456; J0696; J1650; J1885; J7030; J7050; Q9957; Q9967

== ENCOUNTER 2025-06-25 15:20 | Outpatient (CLI) | payer BC, SELFPAY ==
--- NOTE | ~2025-06-25 | XR_ITS ---
EXAM/PROCEDURE: XR chest 2V - 06/25/2025 15:25 CDT HISTORY: 64 years old Female with J18.8 - Other pneumonia, unspecified organism TECHNIQUE: Two view(s) of the chest. COMPARISON: 05/26/2025 FINDINGS: LUNGS/ PLEURA: No focal consolidation. No appreciable pneumothorax or large pleural effusion. Interval improvement in previously seen patchy bilateral airspace disease. HEART/ MEDIASTINUM: Heart appears normal in size. BONES: No acute osseous abnormality. OTHER: Visualized upper abdomen is unremarkable. IMPRESSION: Interval improvement of previously seen patchy airspace disease. Reviewed, dictated and finalized at location A.
== END 2025-06-25 15:21 | disposition home or self-care (01) ==
LOC: MICIMG 15:21
PROVIDERS: PCP Family Medicine; Visit Provider Physician Assistant Medical
DX: J98.4 Other disorders of lung (principal); J18.8 Other pneumonia, unspecified organism
CPT/HCPCS: 71046